=== PATIENT | female | born 1995 | race Caucasian/White ===

== ENCOUNTER 2017-10-20 22:45 | Emergency (ER) | payer MEDICAID, SELFPAY ==
[2017-10-20 22:46] VITALS: BP 120/65; PULSE 70; RESP 18; TEMP 36.9; O2SAT 99; BMI 18.8
--- NOTE | 2017-10-20 23:08 | ED.DCSUM_ITS ---
- ER Visit Summary Date of Service: 10/20/17 Chief Complaint: Laceration History of Present Illness: The patient is a 22 F who is a cutter, however she denies suicidal ideations, she is with her boyfriend who agrees to this. She was trying to escape a problem and cut her right thigh a little to deep tonight. No other injury Physical Examination: 2 cm right thigh laceration linear. It is gaping. Emergency Department Course and Treatment: Wound was sutured, 3 of the 4-0 nylon sutures were placed. Tetanus was updated patient will be discharged with education and I long talk with her about finding alternative means of expressing her anger. Is now calm collected lucid and again nonsuicidal Impression: Laceration right thigh 2 cm This note was generated with [employer] dictation software. It may contain incorrect words, spelling, and punctuation that were not noted in review of the chart prior to signing ED Disposition - Plan for ED Patient: Disposition: Home or Assisted Living Chief Complaint: Laceration Instructions: ED Laceration All Referrals: Care Physician,No Primary [Primary Care Provider] - 10 Day for suture removal
[2017-10-20] MEDS: Diphth,Pertuss(Acell),Tet Vac 0.5 ML Vial IM (23:18)
== END 2017-10-20 23:37 | disposition home or self-care (01) ==
LOC: ED 23:15
PROVIDERS: Emergency Provider Emergency Medicine
DX: S71.111A Laceration without foreign body, right thigh, initial encounter (principal); X78.9XXA Intentional self-harm by unspecified sharp object, initial encounter; Y93.9 Activity, unspecified; Y92.9 Unspecified place or not applicable
CPT/HCPCS: 12001; 90471; 90715; 99282

== ENCOUNTER 2017-11-02 18:15 | Emergency (ER) | payer MEDICAID, SELFPAY ==
[2017-11-02 18:16] VITALS: BP 125/69; PULSE 102; RESP 16; TEMP 36.9; O2SAT 99; BMI 18.2
--- NOTE | 2017-11-02 18:48 | ED.VISSUMM ---
- ER Visit Summary Date of Service: 11/02/17 Chief Complaint: Sore throat History of Present Illness: The patient is a 22 F sore throat today. Denied any nausea, vomiting or diarrhea. No significant cough. No significant fever. Physical Examination: Well-appearing young female. Vital signs are stable. Afebrile. Pulse ox 9 9% on room air. No distress. H EENT exam posterior pharynx both tonsils are slightly enlarged. They are not touching. Both have exudate. Both are red and swollen. No peritonsillar abscess. No drooling. No stridor. No trouble swallowing. Neck mild anterior chain lymphadenopathy. Trachea midline. No meningismus. Lungs clear to auscultation bilaterally. Heart regular rate and rhythm no murmur. Abdomen soft nontender. No giving or masses. No splenic tenderness no hepatomegaly. No axillary lymphadenopathy in either armpit. Moving all 4 extremities. Back nontender. Neurologic exam normal. No current signs of mononucleosis. Test Results: None Emergency Department Course and Treatment: Patient treated clinically as acute strep throat. Treatment Plan: 1 dose of amoxicillin here orally. Amoxicillin 3 times daily for 10 days at home. Warm salt water gargling. Plenty of fluids and rest. Return if worse. Disposition: Discharge Impression: Acute strep tonsillitis This note was generated with [employer] dictation software. It may contain incorrect words, spelling, and punctuation that were not noted in review of the chart prior to signing ED Disposition - Plan for ED Patient: Disposition: Home or Assisted Living Chief Complaint: Sore Throat Instructions: Strep Throat Prescriptions: Amoxicillin 500 mg PO TID #30 tab Referrals: Clint Bui MD [STAFF PHYSICIAN] - 3-5 Days if not improving Additional Instructions: Amoxicillin antibiotic 1 pill 3 times a day. Warm salt water gargling 5 times a day. Tylenol Motrin for pain. Plenty fluids and rest. She started feeling better in the next 24-72 hours. Return if feeling a lot worse or unable to swallow. Follow-up with the primary care physician as needed.
--- NOTE | 2017-11-02 18:51 | ED.DEP ---
ED Disposition - Plan for ED Patient: Disposition: Home or Assisted Living Chief Complaint: Sore Throat Instructions: Strep Throat Prescriptions: Amoxicillin 500 mg PO TID #30 tab Referrals: Clint Bui MD [STAFF PHYSICIAN] - 3-5 Days if not improving Additional Instructions: Amoxicillin antibiotic 1 pill 3 times a day. Warm salt water gargling 5 times a day. Tylenol Motrin for pain. Plenty fluids and rest. She started feeling better in the next 24-72 hours. Return if feeling a lot worse or unable to swallow. Follow-up with the primary care physician as needed.
[2017-11-02] MEDS: AMOXICILLIN 500 MG CAPSULE PO (18:56)
== END 2017-11-02 18:57 | disposition home or self-care (01) ==
PROVIDERS: Emergency Provider Emergency Medicine
DX: J03.00 Acute streptococcal tonsillitis, unspecified (principal)
CPT/HCPCS: 99283

== ENCOUNTER 2017-11-04 13:30 | Emergency (ER) | payer MEDICAID, SELFPAY ==
[2017-11-04 13:30] VITALS: BP 117/76; PULSE 75; RESP 18; TEMP 36.6; O2SAT 98; BMI 18.2
--- NOTE | 2017-11-04 13:47 | CT_ITS ---
STUDY: CT ABDOMEN AND PELVIS WITHOUT CONTRAST REASON FOR EXAM: Female, 22 years old. Left flank pain since 9:00 AM. Hematuria. RADIATION DOSAGE (If Supplied By Facility): CTDIvol = ( 4.06 ) mGy, DLP = ( 172.92 ) mGycm TECHNIQUE: Transaxial images were obtained from the dome of the diaphragm to the symphysis pubis without oral contrast, and without intravenous contrast. Sagittal and coronal images were reconstructed. Individualized dose optimization techniques were used for this CT. COMPARISON: None. FINDINGS: The visualized lung bases are unremarkable. The visualized portions of the heart are within normal limits. Normal liver. Normal gallbladder and extrahepatic biliary system. Normal spleen. Normal pancreas. Normal bilateral adrenal glands. Normal right kidney. Left kidney: Mild left hydronephrosis secondary to 4 mm partially obstructing calculus in the left proximal ureter (series 1002, image 57; series 602, image 40). No stones in the left kidney. Normal visualized stomach. Normal small intestine. Normal colon. The appendix is visualized and appears normal. Normal abdominal aorta. Normal inferior vena cava. Normal retroperitoneum. Normal urinary bladder. Normal anteverted uterus. Normal abdominal wall. Normal osseous structures. CT/Abdomen/Pelvis without Cont IMPRESSION: Mild left hydronephrosis secondary to a 4 mm partially obstructing calculus in the left proximal ureter. Electronically Signed: Yo Stein MD at 14:57 EDT , Service support ,
[2017-11-04] MEDS: 0.9% Normal Saline 1,000 ML 1000 ML IV (13:58)
[2017-11-04] MEDS: Morphine 4 MG/ML Syringe IV (13:59)
[2017-11-04] MEDS: Ondansetron 4 MG/2 ML Vial IV (13:59)
[2017-11-04] MEDS: Ketorolac 30 MG/ML Syringe IV (13:59)
[2017-11-04 14:09] LABS: Bacteria 0 SEEN /hpf (None Seen); Mucous, Urine 0 SEEN /hpf (<or=2+); White Blood Cells 0 SEEN /hpf (0-5)
[2017-11-04 14:13] LABS: Color, Urine Brown (Yellow); Glucose, Dipstick Normal (Normal); Ketone-Dipstick 5 mg/dl (Negative); Leukocyte Esterase-Dipstick 100 /ul (Negative); Nitrite-Dipstick Positive (Negative); Occult Blood-Urine 250 /ul (Negative); Protein-Dipstick 100 mg/dl (Negative); Specific Gravity, Urine 1.015 (1.002-1.030); Urine Clarity Cloudy (Clear); Urine Urobilinogen 1 mg/dl (Normal); Urine pH 6.5 (5.0 - 8.0)
[2017-11-04 14:13] LABS: Absolute Lymphocyte Count 1.66 X10^3/ul (0.83-4.51); Absolute Neutrophil Count 6.5 X10^3/uL (2.0-7.7); Basophil# 0.02 X10^3/uL; Basophil% 0.2 % (0-1); Eosinophil# 0.07 X10^3/uL; Eosinophils% 0.8 % (0-5); Hematocrit 36.2 % (37-47); Lymphocyte # 1.66 X10^3/ul (4.0); Mean Corp Hgb Conc 33.1 g/gl (32-36); Mean Corpuscular Hgb 30.5 pg (27.0-32.0); Mean Corpuscular Volume 91.9 fL (81-99); Mean Platelet Vol. 10.9 fl (6.2-12.0); Monocyte# 0.54 X10^3/uL; Monocyte% 6.2 % (0-10); Neutrophil # 6.46 X10^3/uL (2.7-7.7); Neutrophil % 73.8 % (47-70); Platelet Count 199 K/mm3 (150-450); RBC Distribution Width CV 13.1 % (11.6-14.6); RBC Distribution Width SD 44.3 fl (35.1-43.9); Red Blood Count 3.94 M/mm3 (4.2-5.4); White Blood Count 8.8 K/mm3 (4.4-11.0)
[2017-11-04 14:14] LABS: POSITIVE COUNT NO; POSITIVE DIFFERENTIAL NO; POSITIVE MORPHOLOGY NO
[2017-11-04 14:15] LABS: Internal QC Validated? YES +Cl - CLEAR BKGD; Pregnancy, Urine Negative Negative
[2017-11-04 14:17] LABS: Urine Bilirubin Dipstick 1 mg/dL (Negative)
[2017-11-04 14:19] LABS: Red Blood Cells-Urine > 100 SEEN /hpf (0-5); Squamous Epithelial Cells - UA 5-10 SEEN /hpf (5-10)
[2017-11-04 14:25] LABS: Anion Gap 6 (5-15); BUN 9 mg/dL (7-18); BUN/Creat Ratio 13.7 RATIO (10-20); Calcium,Total 8.7 mg/dL (8.5-10.1); Chloride 110 mmol/L (98-107); Creatinine, Serum 0.66 mg/dL (0.55-1.02); EST Glomerular Filtration Rate 122 mL/min (>60); Est Glom Filt Rate - Afr Amer 147 mL/min (>60); Estimated Creatinine Clearance 100.28 ml/min; Glucose 92 mg/dL (74-106); Potassium 3.8 mmol/L (3.5-5.1); Sodium Level 142 mmol/L (136-145)
--- NOTE | 2017-11-04 15:57 | ED.VISSUMM ---
- ER Visit Summary Date of Service: 11/04/17 Chief Complaint: Right flank pain History of Present Illness: The patient is a 22 F with right flank pain that started just prior to arrival. She has some dysuria and hematuria. No fever or chills no prior kidney stone history. No vaginal bleeding. Physical Examination: She appears in some distress, she has CVA tenderness to palpation and right lower quadrant abdominal pain, not at McBurney's. Emergency Department Course and Treatment: [Patient is found to have a 4 mm stone with very mild hydronephrosis, white counts unremarkable but she does have a urinary tract infection I talked to urology and patient will be discharged. Antibiotics given. Impression: Kidney stone Urinary tract infection This note was generated with [employer] dictation software. It may contain incorrect words, spelling, and punctuation that were not noted in review of the chart prior to signing ED Disposition - Plan for ED Patient: Disposition: Home or Assisted Living Chief Complaint: Flank Pain Instructions: ED Kidney Infec Female, ED Stone Renal W Colic Prescriptions: Smz/Tmp Ds [Bactrim Ds] 1 tab PO BID #20 tab Referrals: Bee Pineda MD [STAFF PHYSICIAN] - 2 Days
[2017-11-04 16:03] VITALS: RESP 18; O2SAT 99
[2017-11-04] MEDS: Ceftriaxone 1 GM/50 mL Premix x1 IV (16:05)
--- NOTE | 2017-11-04 16:13 | ED.VISSUMM ---
- ER Visit Summary Date of Service: 11/04/17 Chief Complaint: [] History of Present Illness: The patient is a 22 F [] Physical Examination: [] Test Results: [] Emergency Department Course and Treatment: [] Treatment Plan: [] Disposition: [] Impression: [] This note was generated with [employer] dictation software. It may contain incorrect words, spelling, and punctuation that were not noted in review of the chart prior to signing ED Disposition - Plan for ED Patient: Disposition: Home or Assisted Living Chief Complaint: Flank Pain Instructions: ED Kidney Infec Female, ED Stone Renal W Colic Prescriptions: Hydrocodone Bitart/Apap 5-325 [Oliver 5/325] 1 - 2 tab PO Q4H PRN PRN 5 Days #20 tab PRN Reason: Pain Smz/Tmp Ds [Bactrim Ds] 1 tab PO BID #20 tab Referrals: Bee Pineda MD [STAFF PHYSICIAN] - 2 Days
--- NOTE | 2017-11-04 16:16 | ED.DCSUM_ITS ---
- ER Visit Summary Date of Service: 11/04/17 Chief Complaint: [] History of Present Illness: The patient is a 22 F [] Physical Examination: [] Test Results: [] Emergency Department Course and Treatment: [] Treatment Plan: [] Disposition: [] Impression: [] This note was generated with [employer] dictation software. It may contain incorrect words, spelling, and punctuation that were not noted in review of the chart prior to signing ED Disposition - Plan for ED Patient: Disposition: Home or Assisted Living Chief Complaint: Flank Pain Instructions: ED Kidney Infec Female, ED Stone Renal W Colic Prescriptions: Hydrocodone Bitart/Apap 5-325 [Carl[place] 5/325] 1 - 2 tab PO Q4H PRN PRN 5 Days #20 tab PRN Reason: Pain Smz/Tmp Ds [Bactrim Ds] 1 tab PO BID #20 tab Referrals: Bee Pineda MD [STAFF PHYSICIAN] - 2 Days
[2017-11-04 16:32] VITALS: BP 124/69; PULSE 58; RESP 18; O2SAT 99
== END 2017-11-04 16:58 | disposition home or self-care (01) ==
PROVIDERS: Emergency Provider Emergency Medicine
DX: N13.2 Hydronephrosis with renal and ureteral calculous obstruction (principal); N39.0 Urinary tract infection, site not specified; Z72.0 Tobacco use
CPT/HCPCS: 74176; 80048; 81001; 81025; 85025; 96361; 96365; 96374; 96375; 99283; J7030; J2405

== ENCOUNTER → 2018-03-15 17:39 | Outpatient (CLI) | payer MEDICAID, SELFPAY ==
[2018-03-15 19:36] LABS: Color, Urine Yellow (Yellow); Glucose, Dipstick Normal (Normal); Ketone-Dipstick Negative (Negative); Leukocyte Esterase-Dipstick 25 /ul (Negative); Nitrite-Dipstick Positive (Negative); Occult Blood-Urine 25 /ul (Negative); Protein-Dipstick Negative (Negative); Specific Gravity, Urine 1.015 (1.002-1.030); Urine Bilirubin Dipstick Negative (Negative); Urine Clarity Cloudy (Clear); Urine Urobilinogen Normal (Normal)
[2018-03-15 20:19] LABS: Chlamydia Trachomatis by PCR Negative (Negative); Neisserai gonorrhoeae by PCR Negative (Negative); Probe Check PASS; Sample Adequacy Control PASS; Specimen Processing Control PASS
--- OUTSIDE RECORDS SUMMARY | 2018-05-01 22:29 | XMS RPT_ITS ---
:1995 Author Organization OHIP Care Team Providers Name Role Phone Dr. Michael Velasco Admitting Unavailable Dr. Michael Velasco Attending Unavailable Rigoberto Castillo Attending Unavailable Primay Care Physicia, No Primary Care Unavailable Rigoberto Castillo Attending Unavailable Primay Care Physicia, No Primary Care Unavailable Primay Care Physicia, No Primary Care Unavailable Mando Bingham Attending Unavailable Primay Care Physicia, No Primary Care Unavailable Misael Jones Attending Unavailable Primay Care Physicia, No Primary Care Unavailable Mando Bingham Attending Unavailable PROBLEMS PROBLEMS DATE TYPE CONDITION / CODE ATTENDING STATUS SOURCE 04/05/2018 Unknown Z34.81 - Encounter Rigoberto Castillo Active [facility] for supervision of Community other normal Hospital , first Repository trimester / Z34.81(ICD-10) 03/16/2018 Unknown Z11.3 - Encounter Rigoberto Castillo Active [facility] for screening for Community infections with a Hospital predominantly Repository sexual mode of transmission / Z11.3(ICD-10) 03/16/2018 Unknown Z32.01 - Encounter Rigoberto Castillo Active [facility] for test, Community result positive / Hospital Z32.01(ICD-10) Repository 03/16/2018 Unknown R30.0 - Dysuria / Rigoberto Castillo Active [facility] R30.0(ICD-10) [facility] Hospital Repository 11/04/2017 Unknown N20.0 - Calculus of CorniciMando Active [facility] kidney / Community N20.0(ICD-10) Hospital Repository PROCEDURES PROCEDURES No Procedure Records FoundRESULTS RESULTS URINE DRUG SCREEN Collected: 04/05/2018 Status: F Source: [place] (VISTA) 4:04 PM [facility] REPOS[facility] Order Comment: Comments: UNK IMMUNITY List of Drugs Taken or Suspected? UNK TYPE CODE TESTS RESULT OUT OF RANGE REFERENCE UNITS LAB L505.0075 TO BE Normal CONFIRMED Result Comment: CONFIRMATORY TESTING FOR ALL POSITIVE URINE DRUG SCREEN RESULTS WILL ONLY BE SENT OUT UPON PHYSICIAN ORDER. VISTA Urine Drug Screen methods provide only preliminary analytical test results. A more specific alternate chemical method must be used in order to obtain a confirmed analytical result. Gas chromatography/mass spectrometery (GC/MS) is the preferred confirmatory method. Clinical consideration and professional judgement should be applied to any drug of abuse test result, particularly when preliminary positive results are used. URINE TCA TESTING MUST BE ORDERED SEPARATELY. USE TEST MNEMONIC: [facility] LAB L505.5005 VISTA UDS PH 7 Normal LAB L505.5015 <1000 ng/mL AMPHETAMINES Normal NEGATIVE LAB L505.5025 < 200 ng/mL BARBITIURATES Normal NEGATIVE LAB L505.5035 < 200 ng/mL BENZODIAZIPINE Normal NEGATIVE LAB L505.5045 < 300 ng/mL COCAINE Normal NEGATIVE LAB L505.5055 < 500 ng/mL ECSTACY Normal NEGATIVE LAB L505.5065 < 300 ng/mL METHADONE Normal NEGATIVE LAB L505.5075 < 300 ng/mL OPIATES Normal NEGATIVE LAB L505.5085 < 25 ng/mL PCP Normal NEGATIVE LAB L505.5095 < 50 ng/mL THC Normal NEGATIVE Performed By: #### L505.5000, L505.6240 #### [facility] [address] [place], [place], [address] NICOTINE URINE DRUG Collected: 04/05/2018 Status: F Source: [place] SCREEN 4:04 PM [facility]POS[facility] Order Comment: Comments: UNK IMMUNITY List of Drugs Taken or Suspected? UNK TYPE CODE TESTS RESULT OUT OF RANGE REFERENCE UNITS LAB L505.6250 TO BE Normal CONFIRMED Result Comment: CONFIRMATORY TESTING FOR ALL POSITIVE URINE DRUG SCREEN RESULTS WILL ONLY BE SENT OUT UPON PHYSICIAN ORDER. The results of Urine Drug Screen methods provide only preliminary analytical test results. A more specific alternate chemical method must be used in order to obtain a confirmed analytical result. Gas chromatography/mass spectrometery (GC/MS) is the preferred confirmatory method. Clinical consideration and professional judgement should be applied to any drug of abuse test result, particularly when preliminary positive results are used. LAB L505.6270 <200 ng/mL High COT DRG Positive SCREEN Result Comment: Cotinine is the first-stage metabolite of Nicotine. Performed By: #### L505.5000, L505.6240 #### [facility] [address] [place], [address] CBC W/DIFF, AUTOMATED Collected: 04/05/2018 Status: F Source: [place] 4:04 PM [facility]POS[facility] TYPE CODE TESTS RESULT OUT OF RANGE REFERENCE UNITS LAB L100.1000 4.4-11.0 K/mm3 Normal WBC 9.4 LAB L100.1200 4.2-5.4 M/mm3 Low RBC 4.01 LAB L100.1300 12.0-15.0 g/dl Normal HGB 12.0 LAB L100.1400 37-47 % Low HCT 35.6 LAB L100.1500 81-99 fL Normal MCV 88.8 LAB L100.1600 27.0-32.0 pg Normal MCH 29.9 LAB L100.1700 32-36 g/gl Normal MCHC 33.7 LAB L100.1810 11.6-14.6 % Normal RDW CV 13.0 LAB L100.1820 35.1-43.9 fl Normal RDW SD 42.3 LAB L100.1900 150-450 K/mm3 Normal PLT 240 LAB L100.2000 6.2-12.0 fl Normal MPV 10.9 LAB L100.2100 47-70 % Normal NEUT% 69.9 LAB L100.2200 19-41 % Normal LY% 21.1 LAB L100.2300 0-10 % Normal MONO% 7.3 LAB L100.2400 0-5 % Normal EO% 1.3 LAB L100.2500 0-1 % Normal BASO% 0.2 LAB L100.2550 0.0-0.9 % Normal IM GRAN % 0.200 Result Comment: IG% - Immature Granulocytes (promyelocytes, myelocytes and metamyelocytes) > 1% indicates that a LEFT SHIFT is Present. LAB L100.2620 2.0-7.7 X10 3/uL Normal Absolute Neut 6.6 LAB L100.2720 0.83-4.51 X10 3/ul Normal Absolute Lymph 1.98 Performed By: #### L100.0100 #### [facility] [address] [facility] [place], [place], [address] T AND S-NO Collected: 04/05/2018 Status: F Source: [place] CHARGE W/PNP 4:04 PM [facility]POS[facility] Order Comment: Reason for Type AND Screen/Red Cells: Surgery? N TYPE CODE TESTS RESULT OUT OF RANGE REFERENCE UNITS LAB B10.0800 A Normal BLOOD POSITIVE TYPE GEL LAB B100.4050 Normal Ab SCREEN NEGATIVE GEL Performed By: #### B100.7550 #### [facility] [address] [facility]. [place], [place], [address] THYROID STIM HORMONE Collected: 04/05/2018 Status: F Source: [place] (TSH) 4:04 PM [facility] REPOS[facility] Order Comment: PLEASE ADD T3F AND T4F TO LABS DRAWN YESTERDAY LOCATION: 0102:C303 WY3-4-G Has Patient had X-rays with Contrast this admission? N Comments: UNK IMMUNITY TYPE CODE TESTS RESULT OUT OF RANGE REFERENCE UNITS LAB L501.9520 0.358-3.74 uIU/mL Low TSH 0.03 Performed By: #### L501.9520, L501.65300, L506.0400 #### [facility] [address], [address] FREE T3 Collected: 04/05/2018 Status: F Source: [place] 4:04 PM [facility] REPOS[facility] Order Comment: PLEASE ADD T3F AND T4F TO LABS DRAWN YESTERDAY LOCATION: 0102:C303 CT3-4-G Has Patient had X-rays with Contrast this admission? N Comments: UNK IMMUNITY TYPE CODE TESTS RESULT OUT OF RANGE REFERENCE UNITS LAB L501.68647 2.18-3.98 pg/mL Normal FREE T3 3.8 Performed By: #### L501.9520, L501.13454, L506.0400 #### [facility] [address] [place], [address] T4 FREE DIRECT Collected: 04/05/2018 Status: F Source: [place] 4:04 PM [facility] Order Comment: PLEASE ADD T3F AND T4F TO LABS DRAWN YESTERDAY LOCATION: 0102:C3 [facility] Has Patient had X-rays with Contrast this admission? N Comments: UNK IMMUNITY TYPE CODE TESTS RESULT OUT OF RANGE REFERENCE UNITS LAB L506.0400 0.76-1.46 ng/dL Normal T4 FREE 1.30 DIRECT Performed By: #### L501.9520, L501.91879, L506.0400 #### [facility] [address] [place], [place], [address] URINALYSIS, ROUTINE Collected: 04/05/2018 Status: F Source: [place] (DIPSTICK) 4:04 PM [facility]POS[facility] Order Comment: Comments: UNK IMMUNITY How was Urine Obtained? Urine, Random TYPE CODE TESTS RESULT OUT OF RANGE REFERENCE UNITS LAB L400.3000 Yellow COLOR Normal Yellow LAB L400.3050 Clear Normal CLARITY Cloudy LAB L400.3200 Normal mg/dl Normal GLUCOSE, UR Normal LAB L400.3300 Negative mg/dL Normal BILIRUBIN URINE Negative LAB L400.3400 Negative mg/dl Normal KETONE UR Negative LAB L400.3465 1.002-1.030 Normal SP.GR. DIPSTX 1.015 LAB L400.3550 5.0 - 8.0 pH UR Normal 7.0 LAB L400.3600 Negative mg/dl PROT Normal DIPSTX Negative LAB L400.3700 Normal mg/dl High 1 UROBILI LAB L400.3750 Negative Normal NITRITE UR Negative LAB L400.3780 Negative /ul High 10 OCCULT BLOOD-UR LAB L400.3800 Negative /ul High LEUK 25 ESTERASE Performed By: #### L400.2010 #### [facility] [address] [place], [address] RUBELLA IGG Collected: 04/05/2018 Status: F Source: [place] 4:04 PM [facility] Order Comment: Comments: UNK IMMUNITY TYPE CODE TESTS RESULT OUT OF RANGE REFERENCE UNITS LAB L509.4000 IU/mL Normal Rubella IgG 45.1 Result Comment: Antibody results Interpretation of Immune Status < 5 IU/ml Presumed Non-immune 5 - < 10 IU/ml Equivocal > or = 10 IU/ml Presumed Immune Performed By: #### L509.4000, L3890.6005 #### [facility] [address] [place], [address] HIV - [facility] Collected: 04/05/2018 Status: F Source: [place] 4:04 [facility] REPOS[facility] Order Comment: Comments: UNK IMMUNITY TYPE CODE TESTS RESULT OUT OF RANGE REFERENCE UNITS LAB L3890.6005 Nonreactive Normal HIV - [facility] Non-Reactive Performed By: #### L509.4000, L3890.6005 #### [facility] [address] [place], [address] RPR Collected: 04/05/2018 Status: F Source: [place] 4:04 [facility] REPOS[facility] TYPE CODE TESTS RESULT OUT OF REFERENCE UNITS RANGE LAB L700.5100 NONREACTIVE Normal RPR NONREACTIVE Performed By: #### L700.5100 #### [facility] [address] [place], [address] Observed: 04/05/2018 Status: F Source: [place] CULTURE, URINE 4:04 PM [facility] Urine Culture Below infection level. ORGANISM 1: Mixed Gram Positive Organisms [place] Count 1000-10,000 Performed By: #### M100.0650 #### [facility] [address] [place], [address] HEPATITIS B SURFACE Collected: 04/05/2018 Status: F Source: [place] AG 4:04 PM [facility] Order Comment: Comments: UNK IMMUNITY TYPE CODE TESTS RESULT OUT OF RANGE REFERENCE UNITS LAB L3100.0400 Negative Normal HB Negative SURF AG Result Comment: Performed at: - [facility] [id number] Clinical Informatics Spec: Gigi Tapia PhD, Phone: [phone] Performed By: #### L3100.0390, L3100.0625, L3400.0000 #### [facility] (refer to report for specific site) refer to report for address and phone number HEPATITIS C ANTIBODIES Collected: 04/05/2018 Status: F Source: [place] 4:04 PM [facility] Order Comment: Comments: UNK IMMUNITY TYPE CODE TESTS RESULT OUT OF RANGE REFERENCE UNITS LAB L3100.0650 0.0-0.9 s/co ratio Normal HEP C AB <0.1 Result Comment: Negative: < 0.8 Indeterminate: 0.8 - 0.9 Positive: > 0.9 The CDC recommends that a positive HCV antibody result be followed up with a HCV Nucleic Acid Amplification test (969229). Performed By: #### L3100.0390, L3100.0625, L3400.0000 #### [facility] (refer to report for specific site) refer to report for address and phone number V-ZOSTER IGG Collected: 04/05/2018 Status: F Source: [place]ICKIE (IMMUNITY) 4:04 PM [facility] Order Comment: Comments: UNK IMMUNITY TYPE CODE TESTS RESULT OUT OF RANGE REFERENCE UNITS LAB L3400.0000 Immune >165 index Normal VZOST IgG [id number] Result Comment: Negative <135 Equivocal 135 - 165 Positive >165 A positive result generally indicates exposure to the pathogen or administration of specific immunoglobulins, but it is not indication of active infection or stage of disease. Performed By: #### L3100.0390, L3100.0625, L3400.0000 #### [facility] (refer to report for specific site) refer to report for address and phone number URINALYSIS, ROUTINE Collected: 03/15/2018 Status: F Source: [place]ICKIE (DIPSTICK) 4:00 PM [facility] Order Comment: How was Urine Obtained? CLEAN CATCH TYPE CODE TESTS RESULT OUT OF RANGE REFERENCE UNITS LAB L400.3000 Yellow COLOR Normal Yellow LAB L400.3050 Clear Normal CLARITY Cloudy LAB L400.3200 Normal mg/dl Normal GLUCOSE, UR Normal LAB L400.3300 Negative mg/dL Normal BILIRUBIN URINE Negative LAB L400.3400 Negative mg/dl Normal KETONE UR Negative LAB L400.3465 1.002-1.030 Normal SP.GR. DIPSTX 1.015 LAB L400.3550 5.0 - 8.0 pH UR Normal 7.0 LAB L400.3600 Negative mg/dl PROT Normal DIPSTX Negative LAB L400.3700 Normal mg/dl Normal UROBILI Normal LAB L400.3750 Negative High NITRITE UR Positive LAB L400.3780 Negative /ul High 25 OCCULT BLOOD-UR LAB L400.3800 Negative /ul High LEUK 25 ESTERASE Performed By: #### L400.2010 #### [facility] [address] [place], [place], [address] CT/NG [facility] BY PCR Collected: 03/15/2018 Status: F Source: [place] 4:00 PM [facility] TYPE CODE TESTS RESULT OUT OF RANGE REFERENCE UNITS LAB L8200.2100 Negative Normal Chlam Negative Trac PCR LAB L8200.2200 Negative Normal NG by Negative PCR Performed By: #### L8200.1999 #### [facility] [address] [place], [address] Observed: 03/15/2018 Status: F Source: [place] CULTURE, URINE 4:00 PM [facility] Urine Culture ORGANISM 1: Presumptive E. coli [place] Count >100,000 Presumptive E. coli: REACTION Amoxacillin/Clavulanic Acid $ 8 S Ampicillin $ >=32 R Ampicillin/Sulbactam $ 16 I Cefazolin $ <=4 S Cefepime $ <=1 S Ceftriaxone $ <=1 S Ciprofloxacin $ <=0.25 S ESBL - Ertapenim $$$ <=0.5 S Gentamicin $ <=1 S Imipenem *NF <=0.25 S Levofloxacin $ 1 S Nitrofurantoin $ <=16 S Piperacillin/Tazobactam $$ <=4 S Tobramycin $ <=1 S Trimethoprim/Sulfametho $ <=20 S (NF) indicates non-formulary drug at [facility]. Approval by Infectious Disease Specialist required before non-formulary drugs may be ordered and/or dispensed. Performed By: #### M100.0650 #### [facility] [address] [place], [address] EMERGENCY DEPARTMENT Observed: 11/04/2017 Status: F Source: [place] SUMMARY 4:16 PM [facility] Medical Records Department [address] [place] [address] Emergency Department Summary 11/04/17 1613 MR#: [id number] Acct: [id number] Name: ROSSY RAMOS Rep #: [id number] : 1995 22 From: Mando Bingham MD PCP: Care Physician, No Primary Status: REG ER - ER Visit Summary Date of Service: 11/04/17 Chief Complaint: [] History of Present Illness: The patient is a 22 F [] Physical Examination: [] Test Results: [] Emergency Department Course and Treatment: [] Treatment Plan: [] Disposition: [] Impression: [] This note was generated with [employer] dictation software. It may contain incorrect words, spelling, and punctuation that were not noted in review of the chart prior to signing ED Disposition - Plan for ED Patient: Disposition: Home or Assisted Living Chief Complaint: Flank Pain Instructions: ED Kidney Infec Female, ED Stone Renal W Colic Prescriptions: Hydrocodone Bitart/Apap 5-325 [[place] 5/325] 1 - 2 tab PO Q4H PRN PRN 5 Days #20 tab PRN Reason: Pain Smz/Tmp Ds [Bactrim Ds] 1 tab PO BID #20 tab Referrals: Bee Pineda MD [STAFF PHYSICIAN] - 2 Days What to do if you have Problems For any increased pain, shortness of breath, bleeding, nausea or vomiting, chest pain, or any unexpected problems, contact your Primary Care Provider. Call [facility] ([phone]) or report to the closest Emergency Room. Call 911 if necessary. 11/04/17 1616 <Electronically signed by Mando Bingham MD> Date Mando Bingham MD Cosigner Signature (If Indicated): Date CC: No Primary Care Physician EMERGENCY DEPARTMENT Observed: 11/04/2017 Status: F Source: [place] SUMMARY 4:10 PM [facility] Medical Records Department [address] [place] [address] Emergency Department Summary 11/04/17 1557 MR#: [id number] Acct: [id number] Name: ROSSY RAMOS Rep #: [id number] : 1995 22 From: Mando Bingham MD PCP: Care Physician, No Primary Status: REG ER - ER Visit Summary Date of Service: 11/04/17 Chief Complaint: Right flank pain History of Present Illness: The patient is a 22 F with right flank pain that started just prior to arrival. She has some dysuria and hematuria. No fever or chills no prior kidney stone history. No vaginal bleeding. Physical Examination: She appears in some distress, she has CVA tenderness to palpation and right lower quadrant abdominal pain, not at McBurney's. Emergency Department Course and Treatment: [Patient is found to have a 4 mm stone with very mild hydronephrosis, white counts unremarkable but she does have a urinary tract infection I talked to urology and patient will be discharged. Antibiotics given. Impression: Kidney stone Urinary tract infection This note was generated with [employer] dictation software. It may contain incorrect words, spelling, and punctuation that were not noted in review of the chart prior to signing ED Disposition - Plan for ED Patient: Disposition: Home or Assisted Living Chief Complaint: Flank Pain Instructions: ED Kidney Infec Female, ED Stone Renal W Colic Prescriptions: Smz/Tmp Ds [Bactrim Ds] 1 tab PO BID #20 tab Referrals: Bee Pineda MD [STAFF PHYSICIAN] - 2 Days What to do if you have Problems For any increased pain, shortness of breath, bleeding, nausea or vomiting, chest pain, or any unexpected problems, contact your Primary Care Provider. Call [facility] ([phone]) or report to the closest Emergency Room. Call 911 if necessary. 11/04/17 1610 <Electronically signed by Mando Bingham MD> Date Mando Bingham MD Cosigner Signature (If Indicated): Date CC: No Primary Care Physician CBC W/DIFF, AUTOMATED Collected: 11/04/2017 Status: F Source: [place] 1:55 PM [facility] TYPE CODE TESTS RESULT OUT OF RANGE REFERENCE UNITS LAB L100.1000 4.4-11.0 K/mm3 Normal WBC 8.8 LAB L100.1200 4.2-5.4 M/mm3 Low RBC 3.94 LAB L100.1300 12.0-15.0 g/dl Normal HGB 12.0 LAB L100.1400 37-47 % Low HCT 36.2 LAB L100.1500 81-99 fL Normal MCV 91.9 LAB L100.1600 27.0-32.0 pg Normal MCH 30.5 LAB L100.1700 32-36 g/gl Normal MCHC 33.1 LAB L100.1810 11.6-14.6 % Normal RDW CV 13.1 LAB L100.1820 35.1-43.9 fl High RDW SD 44.3 LAB L100.1900 150-450 K/mm3 Normal PLT 199 LAB L100.2000 6.2-12.0 fl Normal MPV 10.9 LAB L100.2100 47-70 % High NEUT% 73.8 LAB L100.2200 19-41 % Normal LY% 19.0 LAB L100.2300 0-10 % Normal MONO% 6.2 LAB L100.2400 0-5 % Normal EO% 0.8 LAB L100.2500 0-1 % Normal BASO% 0.2 LAB L100.2550 0.0-0.9 % Normal IM GRAN % 0.000 Result Comment: IG% - Immature Granulocytes (promyelocytes, myelocytes and metamyelocytes) > 1% indicates that a LEFT SHIFT is Present. LAB L100.2620 2.0-7.7 X10 3/uL Normal Absolute Neut 6.5 LAB L100.2720 0.83-4.51 X10 3/ul Normal Absolute Lymph 1.66 Performed By: #### L100.0100 #### [facility] [address] [place], [place], [id number] BASIC METABOLIC Collected: 11/04/2017 Status: F Source: [place] PROFILE ([facility]) 1:55 PM [facility] TYPE CODE TESTS RESULT OUT OF RANGE REFERENCE UNITS LAB L501.0100 74-106 mg/dL Normal GLU 92 Result Comment: Please note revised GLUCOSE reference range effective 2017. LAB L501.1000 7-18 mg/dL Normal BUN 9 LAB L501.1100 0.55-1.02 mg/dL Normal CREAT,SERUM 0.66 Result Comment: The validity of the calculated GFR AND GFRAA in patients over 70 years has not been determined. Clinical correlation is essential. LAB L501.1110 >60 mL/min Normal EST GFR 122 Result Comment: Non- GFR Calc LAB L501.1115 >60 mL/min Normal EST GFR - AA 147 Result Comment: GFR Calc LAB L501.1255 ml/min Normal Estimated CRCL 100.28 LAB L501.1300 10-20 RATIO BUN/CRE Normal 13.7 LAB L501.2200 8.5-10 mg/dL .1 CA Normal 8.7 LAB L501.5300 136-14 mmol/L 5 NA Normal 142 LAB L501.5600 3.5-5. mmol/L 1 K Normal 3.8 LAB L501.5900 98-107 mmol/L High CL 110 LAB L501.6100 21.0-3 mmol/L 2.0 CO2 Normal 26.0 LAB L501.6200 5-15 GAP Normal 6 Performed By: #### L500.2500 #### [facility] [address] [place], [address] ABDOMEN/PELVIS WITHOUT Observed: 11/04/2017 Status: F Source: [place] CONT 1:48 PM [facility] Imaging [place] [address] Abdomen/Pelvis without Cont MR#: [id number] Acct: [id number] Name: ROSSY RAMOS Rep #: [id number] : 1995 F 22 From: Yo Stein MD PCP: Care Physician, No Primary Status: REG ER Study: Abdomen/Pelvis without Cont Date of Exam: 11/04/17 Exam# [id number] Ordering Dr: Mando Bingham MD STUDY: CT ABDOMEN AND PELVIS WITHOUT CONTRAST REASON FOR EXAM: Female, 22 years old. Left flank pain since 9:00 AM. Hematuria. RADIATION DOSAGE (If Supplied By Facility): CTDIvol = ( 4.06 ) mGy, DLP = ( 172.92 ) mGycm TECHNIQUE: Transaxial images were obtained from the dome of the diaphragm to the symphysis pubis without oral contrast, and without intravenous contrast. Sagittal and coronal images were reconstructed. Individualized dose optimization techniques were used for this CT. COMPARISON: None. FINDINGS: The visualized lung bases are unremarkable. The visualized portions of the heart are within normal limits. Normal liver. Normal gallbladder and extrahepatic biliary system. Normal spleen. Normal pancreas. Normal bilateral adrenal glands. Normal right kidney. Left kidney: Mild left hydronephrosis secondary to 4 mm partially obstructing calculus in the left proximal ureter (series 1002, image 57; series 602, image 40). No stones in the left kidney. Normal visualized stomach. Normal small intestine. Normal colon. The appendix is visualized and appears normal. Normal abdominal aorta. Normal inferior vena cava. Normal retroperitoneum. Normal urinary bladder. Normal anteverted uterus. Normal abdominal wall. Normal osseous structures. CT/Abdomen/Pelvis without Cont IMPRESSION: Mild left hydronephrosis secondary to a 4 mm partially obstructing calculus in the left proximal ureter. Electronically Signed: Yo Stein MD at 14:57 EDT , Service support , CC: No Primary Care Physician; Mando Bingham MD Vp Revenue Cycle: Signed ,URINE Collected: 11/04/2017 Status: F Source: [place] 1:40 PM [facility] Order Comment: Order Date: 11/04/17 TYPE CODE TESTS RESULT OUT OF REFERENCE UNITS RANGE LAB L400.8000 Negative Normal HCGUQUAL Negative Result Comment: Very dilute urine specimens, as indicated by a low specific gravity, may not contain sales representative groceries levels of hCG. If is still suspected, a first morning urine specimen should be collected 48 hours later and tested. Performed By: #### L400.7600 #### [facility] [place], [address] URINALYSIS, COMPLETE Collected: 11/04/2017 Status: F Source: [place] 1:40 PM [facility] Order Comment: Order Date: 11/04/17 COLOR OF URINE MAY AFFECT DIPSTICK RESULTS. How was Urine Obtained? CLEAN CATCH TYPE CODE TESTS RESULT OUT OF RANGE REFERENCE UNITS LAB L400.3000 Yellow COLOR Normal Brown LAB L400.3050 Clear Normal CLARITY Cloudy LAB L400.3200 Normal mg/dl Normal GLUCOSE, UR Normal LAB L400.3300 Negative mg/dL High BILIRUBIN URINE 1 Result Comment: COLOR OF URINE MAY AFFECT DIPSTICK RESULTS. LAB L400.3400 Negative mg/dl High KETONE UR 5 LAB L400.3465 1.002-1.030 Normal SP.GR. DIPSTX 1.015 LAB L400.3550 5.0 - 8.0 pH Normal UR 6.5 LAB L400.3600 Negative mg/dl High PROT DIPSTX 100 LAB L400.3700 Normal mg/dl High UROBILI 1 LAB L400.3750 Negative High NITRITE UR Positive LAB L400.3780 Negative /ul High OCCULT 250 BLOOD-UR LAB L400.3800 Negative /ul High LEUK ESTERASE 100 LAB L400.4050 0-5 /hpf Normal WBC 0 SEEN LAB L400.4100 0-5 /hpf Normal RBC-UA > 100 SEEN LAB L400.4150 5-10 /hpf Normal SQUAM EPI 5-10 SEEN LAB L400.4300 None Seen /hpf Normal BACTERIA 0 SEEN LAB L400.4350 <or=2+ /hpf Normal MUCUS, URINE 0 SEEN Performed By: #### L400.0001 #### [facility] [address] [place], [address] EMERGENCY DEPARTMENT Observed: 11/02/2017 Status: F Source: [place] SUMMARY 11:34 PM [facility] REPOSITORY [facility] Medical Records Department [address] [place] [address] Emergency Department Summary 11/02/17 1848 MR#: [id number] Acct: [id number] Name: ROSSY RAMOS Rep #: [id number] : 1995 22 From: Misael Jones MD PCP: Care Physician, No Primary Status: DEP ER - ER Visit Summary Date of Service: 11/02/17 Chief Complaint: Sore throat History of Present Illness: The patient is a 22 F sore throat today. Denied any nausea, vomiting or diarrhea. No significant cough. No significant fever. Physical Examination: Well-appearing young female. Vital signs are stable. Afebrile. Pulse ox 9 9% on room air. No distress. H EENT exam posterior pharynx both tonsils are slightly enlarged. They are not touching. Both have exudate. Both are red and swollen. No peritonsillar abscess. No drooling. No stridor. No trouble swallowing. Neck mild anterior chain lymphadenopathy. Trachea midline. No meningismus. Lungs clear to auscultation bilaterally. Heart regular rate and rhythm no murmur. Abdomen soft nontender. No giving or masses. No splenic tenderness no hepatomegaly. No axillary lymphadenopathy in either armpit. Moving all 4 extremities. Back nontender. Neurologic exam normal. No current signs of mononucleosis. Test Results: None Emergency Department Course and Treatment: Patient treated clinically as acute strep throat. Treatment Plan: 1 dose of amoxicillin here orally. Amoxicillin 3 times daily for 10 days at home. Warm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
== END ==
PROVIDERS: Visit Provider Obstetrics & Gynecology
DX: Z32.01 Encounter for pregnancy test, result positive (principal); Z11.3 Encounter for screening for infections with a predominantly sexual mode of transmission; R30.0 Dysuria
CPT/HCPCS: 81002; 87086; 87088; 87186; 87491; 87591

== ENCOUNTER → 2018-04-05 16:01 | Outpatient (CLI) | payer MEDICAID, SELFPAY ==
[2018-04-05 17:26] LABS: Absolute Lymphocyte Count 1.98 X10^3/ul (0.83-4.51); Absolute Neutrophil Count 6.6 X10^3/uL (2.0-7.7); Basophil# 0.02 X10^3/uL; Basophil% 0.2 % (0-1); Eosinophil# 0.12 X10^3/uL; Eosinophils% 1.3 % (0-5); Hematocrit 35.6 % (37-47); Lymphocyte # 1.98 X10^3/ul (4.0); Lymphocyte % 21.1 % (19-41); Mean Corp Hgb Conc 33.7 g/gl (32-36); Mean Corpuscular Hgb 29.9 pg (27.0-32.0); Mean Corpuscular Volume 88.8 fL (81-99); Mean Platelet Vol. 10.9 fl (6.2-12.0); Monocyte# 0.68 X10^3/uL; Monocyte% 7.3 % (0-10); Neutrophil # 6.55 X10^3/uL (2.7-7.7); Neutrophil % 69.9 % (47-70); Platelet Count 240 K/mm3 (150-450); RBC Distribution Width SD 42.3 fl (35.1-43.9); Red Blood Count 4.01 M/mm3 (4.2-5.4); White Blood Count 9.4 K/mm3 (4.4-11.0)
[2018-04-05 17:28] LABS: POSITIVE COUNT NO; POSITIVE DIFFERENTIAL NO; POSITIVE MORPHOLOGY NO
[2018-04-05 18:51] LABS: Amphetamine Urine VISTA NEGATIVE (<1000 ng/mL); Barbiturate Urine VISTA NEGATIVE (< 200 ng/mL); Benzodiazepine Urine VISTA NEGATIVE (< 200 ng/mL); Cocaine Urine VISTA NEGATIVE (< 300 ng/mL); Ecstacy Urine VISTA NEGATIVE (< 500 ng/mL); Methadone Urine VISTA NEGATIVE (< 300 ng/mL); PCP Urine VISTA NEGATIVE (< 25 ng/mL); THC Urine VISTA NEGATIVE (< 50 ng/mL); Vista UDS pH Range 7
[2018-04-05 18:52] LABS: Thyroid Stim Hormone (TSH) 0.03 uIU/mL (0.358-3.74)
[2018-04-05 19:07] LABS: Color, Urine Yellow (Yellow); Glucose, Dipstick Normal (Normal); Ketone-Dipstick Negative (Negative); Leukocyte Esterase-Dipstick 25 /ul (Negative); Nitrite-Dipstick Negative (Negative); Occult Blood-Urine 10 /ul (Negative); Protein-Dipstick Negative (Negative); Specific Gravity, Urine 1.015 (1.002-1.030); Urine Bilirubin Dipstick Negative (Negative); Urine Clarity Cloudy (Clear); Urine Urobilinogen 1 mg/dl (Normal)
[2018-04-05 19:34] LABS: HIV - WCH Non-Reactive (Nonreactive); Rubella IgG 45.1 IU/mL
[2018-04-05 20:41] LABS: COTININE Drug Screen Positive (<200 ng/mL)
[2018-04-06 09:05] LABS: Free T3 3.8 pg/mL (2.18-3.98)
[2018-04-07 01:41] LABS: Prenatal RPR NONREACTIVE (NONREACTIVE)
[2018-04-10 08:21] LABS: HEPATITIS B SURFACE AG Negative (Negative); Hep C Antibodies <0.1 s/co ratio (0.0-0.9); V-Zoster IgG (Immunity) 2293 index (Immune >165)
== END ==
PROVIDERS: Visit Provider Obstetrics & Gynecology
DX: Z34.81 Encounter for supervision of other normal pregnancy, first trimester (principal); R79.89 Other specified abnormal findings of blood chemistry
CPT/HCPCS: 36415; 80307; 81002; 84439; 84443; 84481; 85025; 86703; 86762; 86787; 86803; 87086; 87088; 87340

== ENCOUNTER → 2018-05-31 16:33 | Outpatient (CLI) | payer MEDICAID, SELFPAY ==
[2018-05-31 18:09] LABS: Free T3 2.6 pg/mL (2.18-3.98); T4 Free Direct 0.92 ng/dL (0.76-1.46); Thyroid Stim Hormone (TSH) 0.56 uIU/mL (0.358-3.74)
== END ==
PROVIDERS: Visit Provider Obstetrics & Gynecology
DX: O99.282 Endocrine, nutritional and metabolic diseases complicating pregnancy, second trimester (principal); E03.9 Hypothyroidism, unspecified; Z3A.00 Weeks of gestation of pregnancy not specified
CPT/HCPCS: 36415; 84439; 84443; 84481

== ENCOUNTER → 2018-08-16 | Outpatient (CLI) | payer MEDICAID, SELFPAY ==
[2018-08-16 17:22] LABS: Glucose Challenge Gest 1H 50g 130 mg/dL (70-140)
[2018-08-16 17:43] LABS: Hematocrit 30.7 % (37-47); Hemoglobin 10.1 g/dl (12.0-15.0); Mean Corp Hgb Conc 32.9 g/gl (32-36); Mean Corpuscular Volume 91.1 fL (81-99); Mean Platelet Vol. 11.6 fl (6.2-12.0); Platelet Count 264 K/mm3 (150-450); RBC Distribution Width CV 12.6 % (11.6-14.6); RBC Distribution Width SD 40.7 fl (35.1-43.9); Red Blood Count 3.37 M/mm3 (4.2-5.4); White Blood Count 12.3 K/mm3 (4.4-11.0)
[2018-08-16 17:45] LABS: Scan Indicated on CBC? Y/N NO
== END | disposition home or self-care (01) ==
LOC: WOBLAB 15:54
PROVIDERS: Visit Provider Obstetrics & Gynecology
DX: Z34.83 Encounter for supervision of other normal pregnancy, third trimester (principal)
CPT/HCPCS: 36415; 82950; 85027

== ENCOUNTER 2018-10-01 08:10 | Outpatient (CLI) | payer MEDICAID, SELFPAY ==
[2018-10-01 08:20] VITALS: BMI 24.4
[2018-10-01 08:33] LABS: Bacteria 0 SEEN /hpf (None Seen); Mucous, Urine 0 SEEN /hpf (<or=2+); Red Blood Cells-Urine 0 SEEN /hpf (0-5); Squamous Epithelial Cells - UA 0 SEEN /hpf (5-10); White Blood Cells 0 SEEN /hpf (0-5)
[2018-10-01 08:37] LABS: Color, Urine Yellow (Yellow); Glucose, Dipstick Normal (Normal); Ketone-Dipstick Negative (Negative); Leukocyte Esterase-Dipstick Negative /ul (Negative); Nitrite-Dipstick Negative (Negative); Occult Blood-Urine Negative /ul (Negative); Protein-Dipstick Negative (Negative); Urine Bilirubin Dipstick Negative (Negative); Urine Clarity Clear (Clear); Urine Urobilinogen Normal (Normal)
--- NOTE | 2018-10-01 09:15 | OB.TRI.NOTE ---
History of Present Illness Was patient seen by the physician?: Yes Reason For Visit: RULE OUT LABOR Date of Service: 10/01/18 Final ROSETTE: 11/08/18 Final ROSETTE Source: US <20 weeks Gestational age: 34 Weeks and 4 Days History of Present Illness: 34+ week intrauterine presents with some mid to low abdominal discomfort. Patient denies any vaginal leaking of fluid. Excellent movement noted. Patient did have a shower yesterday and was on her feet quite a bit. She has not tried any Tylenol for her discomfort. Allergies cinnamon Allergy (Verified 10/01/18 08:29) Swelling Laboratory Studies: Laboratory Tests 10/01/18 Range/Units 08:20 Urine Color Yellow (Yellow) Urine Clarity Clear (Clear) Urine pH 7.0 (5.0 - 8.0) Ur Specific [place] 1.010 (1.002-1.030) Urine Protein Negative (Negative) mg/dl Urine Glucose (UA) Normal (Normal) mg/dl Urine Ketones Negative (Negative) mg/dl Urine Occult Blood Negative (Negative) /ul Urine Nitrite Negative (Negative) Urine Bilirubin Negative (Negative) mg/dL Urine Urobilinogen Normal (Normal) mg/dl Ur Leukocyte Esterase Negative (Negative) /ul Urine RBC 0 SEEN (0-5) /hpf Urine WBC 0 SEEN (0-5) /hpf Ur Squamous Epith Cells 0 SEEN (5-10) /hpf Urine Bacteria 0 SEEN (None Seen) /hpf Urine Mucus 0 SEEN (<or=2+) /hpf Physical Exam Cervix Dilation (cm): 0 Station: -2 Effacement (%): 50 NST - FHR Rate Baby A NST Reactive:: Yes FHR Category:: Category I Impression/Plan 34+ week intrauterine with transient contractions. Urine analysis was negative. Cervix nonthreatening. No contractions noted on monitor. Reactive nonstress test. Plan discharge to home with routine instructions. Recommended Tylenol this morning and this afternoon for continued discomfort and to increase p.o. fluids today.
== END 2018-10-01 09:15 | disposition home or self-care (01) ==
LOC: WPOUT 08:17 → WP 08:18
PROVIDERS: Visit Provider Obstetrics & Gynecology
DX: O60.03 Preterm labor without delivery, third trimester (principal); Z3A.34 34 weeks gestation of pregnancy
CPT/HCPCS: 59025; 59050; 81001; 99218; G0378

== ENCOUNTER → 2018-10-11 | Outpatient (CLI) | payer MEDICAID, SELFPAY ==
[2018-10-01 08:20] VITALS: BMI 24.4
== END | disposition home or self-care (01) ==
LOC: LABSPEC 16:42
PROVIDERS: Visit Provider Obstetrics & Gynecology
DX: Z36.85 Encounter for antenatal screening for Streptococcus B (principal)
CPT/HCPCS: 87077; 87081; 87186

== ENCOUNTER 2018-10-14 19:35 | Outpatient (CLI) | payer MEDICAID, SELFPAY ==
[2018-10-14 20:07] VITALS: BMI 24.3
[2018-10-14 20:22] LABS: Color, Urine Straw (Yellow); Glucose, Dipstick Normal (Normal); Ketone-Dipstick Negative (Negative); Leukocyte Esterase-Dipstick Negative /ul (Negative); Nitrite-Dipstick Negative (Negative); Occult Blood-Urine 25 /ul (Negative); Protein-Dipstick Negative (Negative); Urine Bilirubin Dipstick Negative (Negative); Urine Clarity Clear (Clear); Urine Urobilinogen Normal (Normal)
[2018-10-14 21:05] VITALS: RESP 18
--- NOTE | 2018-10-18 09:09 | OB.TRI.HP_ITS ---
History of Present Illness Date of Service: 10/14/18 Was patient seen by the physician?: No Reason For Visit: R/O LABOR Date of Service: 10/14/18 Final ROSETTE: 11/08/18 Final ROSETTE Source: US <20 weeks Gestational age: 36 Weeks and 3 Days History of Present Illness: 23 yo female at 36 + wk presents with back pain and concern re well being. Was told in ofc at a prior appt that she has oligohydramnios. Allergies cinnamon Allergy (Verified 10/14/18 20:06) Swelling burning Laboratory Studies: Laboratory Tests 10/14/18 Range/Units 20:03 Urine Color Straw (Yellow) Urine Clarity Clear (Clear) Urine pH 7.0 (5.0 - 8.0) Ur Specific [place] 1.010 (1.002-1.030) Urine Protein Negative (Negative) mg/dl Urine Glucose (UA) Normal (Normal) mg/dl Urine Ketones Negative (Negative) mg/dl Urine Occult Blood 25 H (Negative) /ul Urine Nitrite Negative (Negative) Urine Bilirubin Negative (Negative) mg/dL Urine Urobilinogen Normal (Normal) mg/dl Ur Leukocyte Esterase Negative (Negative) /ul Physical Exam Vitals: Vital Signs Resp 18 10/14/18 21:05 NST - FHR Rate Baby A Baseline: 120-130s avg variability. Accels. Reactive NST Variability:: Moderate Accelerations:: 15 x 15 Decelerations:: None NST Reactive:: Yes, Appropriate for gestational age FHR Category:: Category I Uterine Activity:: Irregular UCs and mild irritability Impression/Plan 36 3/7 wk EGA . Oligo reported FALSE LABOR. NST reactive. Back pain 2/2 musculoskeletal, advanced . Keep next ofc appt Home.
== END 2018-10-14 21:05 | disposition home or self-care (01) ==
LOC: WPOUT 19:54 → WP 20:06
PROVIDERS: Visit Provider Obstetrics & Gynecology
DX: O47.03 False labor before 37 completed weeks of gestation, third trimester (principal); O26.893 Other specified pregnancy related conditions, third trimester; M54.9 Dorsalgia, unspecified; O41.03X0 Oligohydramnios, third trimester, not applicable or unspecified; Z3A.36 36 weeks gestation of pregnancy
CPT/HCPCS: 59025; 59050; 81002; 99218; G0378

== ENCOUNTER 2018-10-22 19:10 | Outpatient (CLI) | payer MEDICAID, SELFPAY ==
[2018-10-22 20:00] VITALS: BMI 25.7
[2018-10-22 20:32] LABS: ROM Internal Control Test YES-OK TO RESULT pt. (Internal QC); ROM Patient Test Negative (Negative)
--- NOTE | 2018-10-25 20:14 | OB.TRI.NOTE ---
- Problem List (1) 37 weeks gestation of Status: Acute History of Present Illness Date of Service: 10/22/18 Was patient seen by the physician?: No Reason For Visit: RULE OUT LABOR Date of Service: 10/22/18 Final ROSETTE: 11/02/18 Final ROSETTE Source: US <20 weeks Gestational age: 37 Weeks and 3 Days History of Present Illness: 23yo @ 37 3/7wga with c/o leaking of fluid. Allergies cinnamon Allergy (Verified 10/22/18 20:02) Swelling burning Laboratory Studies: Laboratory Tests 10/22/18 Range/Units 19:56 Vag Amniotic Fld Detect Negative (Negative) NST - FHR Rate Baby A Baseline: 120 Variability:: Moderate Accelerations:: 15 x 15 Decelerations:: None NST Reactive:: Yes FHR Category:: Category I Uterine Activity:: 2/10 min Impression/Plan Dx False labor Cat I FHR ROM plus negative d/c home
== END 2018-10-22 21:00 | disposition home or self-care (01) ==
LOC: WPOUT 19:55 → WP 19:56
PROVIDERS: Referring Provider Obstetrics & Gynecology; Visit Provider Obstetrics & Gynecology
DX: O47.1 False labor at or after 37 completed weeks of gestation (principal); Z3A.37 37 weeks gestation of pregnancy
CPT/HCPCS: 59025; 59050; 84112; 94760; 99218; G0378

== ENCOUNTER 2018-10-28 21:57 | Outpatient (CLI) | payer MEDICAID, SELFPAY ==
[2018-10-28 22:17] VITALS: BMI 25.2
[2018-10-28 22:46] LABS: ROM Internal Control Test YES-OK TO RESULT pt. (Internal QC); ROM Patient Test Negative (Negative)
--- NOTE | 2018-10-29 07:45 | OB.TRI.NOTE ---
History of Present Illness Date of Service: 10/28/18 Was patient seen by the physician?: No Reason For Visit: RULE OUT LABOR Date of Service: 10/28/18 Final ROSETTE: 11/08/18 Final ROSETTE Source: US <20 weeks Gestational age: 38 Weeks and 3 Days History of Present Illness: 38+ week intrauterine presents with possible rupture of membranes. Minimal contractions have been noted. care has been unremarkable for oligohydramnios monitored with nonstress testing twice weekly and amniotic fluid index weekly. Allergies cinnamon Allergy (Verified 10/28/18 22:29) Swelling burning Laboratory Studies: Laboratory Tests 10/28/18 Range/Units 22:10 Vag Amniotic Fld Detect Negative (Negative) NST - FHR Rate Baby A NST Reactive:: Yes FHR Category:: Category I Impression/Plan 38+ week intrauterine with vaginal discharge. ROM test was negative. Nonstress test reactive with only occasional contraction noted. Released to home with routine instructions. To return with decreased movement, labor, or leaking. Otherwise routine follow-up in the office.
== END 2018-10-28 23:00 | disposition home or self-care (01) ==
LOC: WPOUT 22:16 → WP 22:16
PROVIDERS: Referring Provider Obstetrics & Gynecology; Visit Provider Obstetrics & Gynecology
DX: O41.03X0 Oligohydramnios, third trimester, not applicable or unspecified (principal); Z3A.38 38 weeks gestation of pregnancy
CPT/HCPCS: 59025; 59050; 84112; 99218; G0378

== ENCOUNTER 2018-10-31 03:21 | Inpatient (IN) | payer MEDICAID, SELFPAY ==
[2018-10-31] MEDS: Lactated Ringers 1,000 ML 50 ML IV ×4 (03:45→14:01)
[2018-10-31 03:48] VITALS: BMI 25.2
[2018-10-31 04:01] LABS: Absolute Lymphocyte Count 3.04 X10^3/uL (0.83-4.51); Basophil# 0.05 X10^3/uL; Basophil% 0.4 % (0-1); Eosinophil# 0.32 X10^3/uL; Eosinophils% 2.3 % (0-5); Hemoglobin 10.6 g/dL (12.0-15.0); Lymphocyte # 3.04 X10^3/ul (4.0); Lymphocyte % 22.1 % (19-41); Mean Corp Hgb Conc 32.1 g/dL (32-36); Mean Corpuscular Hgb 27.6 pg (27.0-32.0); Mean Corpuscular Volume 85.9 fL (81-99); Monocyte# 1.26 X10^3/uL; Monocyte% 9.2 % (0-10); NRBC Flagged by Analyzer 0 % (0-5); Neutrophil # 8.97 X10^3/uL (2.7-7.7); Neutrophil % 65.2 % (47-70); Platelet Count 285 K/mm3 (150-450); RBC Distribution Width CV 14.3 % (11.6-14.6); RBC Distribution Width SD 44.3 fl (35.1-43.9); Red Blood Count 3.84 M/mm3 (4.2-5.4); White Blood Count 13.8 K/mm3 (4.4-11.0)
[2018-10-31] MEDS: fentaNYL-bupivacaine (epidural) 100 ML BAG EPIDURAL ×2 (05:23→10:26)
[2018-10-31 05:50] LABS: Amphetamine Urine VISTA NEGATIVE (<1000 ng/mL); Barbiturate Urine VISTA NEGATIVE (< 200 ng/mL); Benzodiazepine Urine VISTA NEGATIVE (< 200 ng/mL); Cocaine Urine VISTA NEGATIVE (< 300 ng/mL); Ecstacy Urine VISTA NEGATIVE (< 500 ng/mL); Methadone Urine VISTA NEGATIVE (< 300 ng/mL); PCP Urine VISTA NEGATIVE (< 25 ng/mL); THC Urine VISTA NEGATIVE (< 50 ng/mL); Vista UDS pH Range 7
--- NOTE | 2018-10-31 07:07 | HP.PCM_ITS ---
History and Physical Date of Admission: 10/31/18 [facility] History of this : 23 yo female Ab1 with EDC 11/08/2018 by 9 weeks 0 days Ultrasound, presents to Labor and Delivery. care remarkable for - Oligo JER=8.9cm at 36 wks; start 2x/wk NST and weekly JER, IMMUNE to chickenpox IgG positive. Presents to L and D with gross SROM at home. Was scheduled for induction today for worsening oligohydramnios. Pertinent Past Medical History: smoker early Allergies: No Known Allergies Medications: During - Macrobid 100 mg capsule; Tamiflu 75 mg capsule; Tamiflu 75 mg capsule; 28 mg iron-800 mcg tablet; lugoqrbgov-mbpdollhmvmfr-gnoeiuxt 50 mg-325 mg-40 mg tablet; ferrous gluconate 324 mg (37.5 mg iron) tablet Review of Systems: Non-contributory PHYSICAL EXAMINATION General Appearence: 23 yo female in no acute distress Vital Signs: AF, VSS Heart: RRR without rubs or gallops Lungs: CTA x 2 Breasts: deferred Abdomen: gravid Pelvis: Cervix: 2cm now 4 cm Presentation:cephalic Station: -2 Fetus: Size: AGA Movement: present Heart: present Impression /Plan: Intrauterine in labor. Preparations in progress for delivery. Expect .
--- NOTE | 2018-10-31 07:55 | PCM.PN.BLA ---
Progress Note 23 yo with oligo presents in early labor, SROM at 0200 today. A positive RI. GBS positive and abx prophylaxis Multiple visitors in room Appears comfortable w/ epidural. AVSS EFM 120-130s with accels avg variability. Ucs initially this am q 1-3 mins, now q 2-5+ minutes CX: deferred, but last check approx 4/80/-2 A/P: 23 yo at 38 6/7 wk EGA early labor. Was scheduled for induction today for oligo, but presented in labor with SROM. Pitocin to start. watch continued progress, descent.
[2018-10-31] MEDS: Oxytocin 30 units/NS 500 ml 30 UNITS/500 ML IV.SOLN IV (08:22)
--- NOTE | 2018-10-31 12:58 | PN_ITS ---
Progress Note 38 6/7 wk SROM Oligo Comfortable w/ epidural AVSS no pitocin EFM to IFM: Category I to II tracing. Baseline 120-130s accels good variabi lity. Late decelerations? variable configuration at onset with return to baseline within about 1 min each UCs noted. IUPC and scalp lead in place. CX: 8 cm per last RN check. A/P: 38 6/7 wk SROM labor. Pitocin off due to ? lates, some with variable configuration/onset. Amnioinfusion planned. 300 cc bolus with 150 cc/ hr then if good return. Continue spont labor, progression to 8 cm already noted. Anticipate
[2018-10-31] MEDS: Amnioinfusion- 0.9% NS 1,000 ML IV.SOLN. INTRA-UTER (13:02)
[2018-10-31] MEDS: Oxytocin 30 units/NS 500 ml 30 UNITS/500 ML IV.SOLN 334 UNITS IV (15:35)
[2018-10-31] MEDS: Oxytocin 30 units/NS 500 ml 30 UNITS/500 ML IV.SOLN 167 UNITS IV (16:25)
[2018-10-31] MEDS: 0.9% Saline Lock 10 ML Syringe IV (17:25)
--- NOTE | 2018-10-31 18:41 | PCM.OPRPT ---
Vaginal Delivery Maternal Presentation: Spontaneous Rupture of Membranes 38 6/7 wk EGA SROM Oligo Amniotic Membrane Rupture Type: Spontaneous at home Amniotic Fluid Description: Clear Final ROSETTE: 11/08/18 Gestational age: 38 Weeks and 6 Days Date of Procedure: 10/31/18 Pre-Operative Diagnosis: 38 6/7 wk SROM, early labor. Oligohydramnioa Post-Operative Diagnosis: Same Surgery/ Procedure Performed: Spontaneous Vaginal Delivery Type of Anesthesia: Epidural Description of Procedure: Of a laura viable male over intact perineum Head delivered SHANNON> OP and nares bulb suctioned on perineum. No nuchal cord. Shoulders delivered easily. to maternal abdomen with spont cry. Delayed cord clamping. Cord then clamped times two and cut. apgars 9/9 3320 gm PP exam Abrasion at anterior L labia minora. No lacerations noted Placenta delivered by spont expulsion, expression. 3V cord, normal appearing and intact with trailing membranes EBL 350 cc Pt and tolerated delivery well. To recovery, stable condition Ray Klever counts correct times two Presentation: Vertex, SHANNON Placental Delivery Description: Spontaneous, Expressed Placenta Disposition: [facility] Cord Vessel Description: 3 Vessels Cord Entanglement: None Drain: Zazueta to straight drain Estimated Blood Loss: 350 (1 minute): 9 (5 minute): 9 Episiotomy Description: None Laceration: None Medications given after delivery: IV Pitocin Complications: None
--- NOTE | 2018-10-31 18:50 | DCINST_ITS ---
Discharge Diet: No Restrictions Discharge Activity: May Shower, May Take a Tub Bath May resume sexual activity in: 4-6 weeks Additional Activity Instructions:: Nothing in the vagina for 4-6 weeks. You may return to work/school in 6 weeks. Additional Instructions: If you experience any of the following, contact your healthcare provider. * Bleeding that soaks a pad every hour for 2 hours * Fever 100.4 or higher * Unrelieved abdominal pain * Problems urinating (including inability to urinate or burning while urinating). * Visual changes * Severe headache * Flu-like symptoms * Pain or redness in one of both of your breasts * Pain, warmth, tenderness or swelling in your legs, especially the calf area * Frequent nausea and vomiting * Symptoms of depression or anxiety If you experience any of the following, call 911 or go to the nearest Emergency Room. * Chest pain * Problems breathing * Seizure activity * Partial or complete paralysis of a body part, slurred speech, weakness or drooping of the face, or a sudden inability to walk or hold your balance Allergies/Adverse Reactions: Allergies cinnamon Allergy (Verified 10/31/18 03:46) Swelling burning Medications to take at Discharge Ferrous Sulfate [Iron] 325 mg PO BID 10/01/18 Vits [Prenatabs FA] 1 tab PO DAILY 10/01/18 Please Follow Up With: Micaela Crabtree MD - [phone] When: Call to make an appointment with your doctor in 6 weeks. Primary Care Physician: Care Physician,No Primary [Primary Care Provider] - Test Results: Test results from this visit will be discussed in further detail at your follow- up appointment, if applicable. Proposed Discharge Date: 11/02/18
--- NOTE | 2018-10-31 18:50 | PCM.DCVAG ---
Discharge Diet: No Restrictions Discharge Activity: May Shower, May Take a Tub Bath May resume sexual activity in: 4-6 weeks Additional Activity Instructions:: Nothing in the vagina for 4-6 weeks. You may return to work/school in 6 weeks. Additional Instructions: If you experience any of the following, contact your healthcare provider. Bleeding that soaks a pad every hour for 2 hours Fever 100.4 or higher Unrelieved abdominal pain Problems urinating (including inability to urinate or burning while urinating). Visual changes Severe headache Flu-like symptoms Pain or redness in one of both of your breasts Pain, warmth, tenderness or swelling in your legs, especially the calf area Frequent nausea and vomiting Symptoms of depression or anxiety If you experience any of the following, call 911 or go to the nearest Emergency Room. Chest pain Problems breathing Seizure activity Partial or complete paralysis of a body part, slurred speech, weakness or drooping of the face, or a sudden inability to walk or hold your balance Allergies/Adverse Reactions: Allergies cinnamon Allergy (Verified 10/31/18 03:46) Swelling burning Medications to take at Discharge Ferrous Sulfate [Iron] 325 mg PO BID 10/01/18 Vits [Prenatabs FA] 1 tab PO DAILY 10/01/18 Please Follow Up With: Micaela Crabtree MD - [phone] When: Call to make an appointment with your doctor in 6 weeks. Primary Care Physician: Care Physician,No Primary [Primary Care Provider] - Test Results: Test results from this visit will be discussed in further detail at your follow-up appointment, if applicable. Proposed Discharge Date: 11/02/18
[2018-10-31 20:25] VITALS: BP 128/79; PULSE 80; RESP 18; TEMP 37.7
[2018-11-01 00:44] VITALS: BP 108/68; PULSE 76; RESP 18; TEMP 36.6
[2018-11-01 04:15] VITALS: BP 116/57; PULSE 70; RESP 18; TEMP 36.8
[2018-11-01 07:54] VITALS: BP 116/70; PULSE 72; RESP 16; TEMP 37.1; O2SAT 98
[2018-11-01] MEDS: Acetaminophen 500 MG Tablet 1000 MG PO (08:22)
[2018-11-01] MEDS: Ibuprofen 600 MG Tablet PO ×2 (08:23→22:58)
[2018-11-01] MEDS: Dibucaine 30 GM Tube 1 APPLIC TOPICAL (08:23)
--- NOTE | 2018-11-01 08:29 | PCM.PN.OB ---
Subjective: PPD#1 Doing well. Breast feeding. Stating to nurse 7 1/2 out of 10 pain at back right now but NAD and is conversant. - Physical Exam General: Alert, Oriented x3, Cooperative, No apparent distress HEENT: Atraumatic Neck: Supple Abdomen: Soft - Fundus firm NT at inferior to umbilicus Neurological: Cranial nerves II-XII grossly intact Psych/Mental Status: Normal Affect Vital Signs Temp Pulse Resp BP Pulse Ox 98.7 F 72 16 116/70 98 11/01/18 07:54 11/01/18 07:54 11/01/18 07:54 11/01/18 07:54 11/01/18 07:54 Oxygen Delivery Method Room Air Weight: 65.5 kg Body Mass Index (BMI) 25.2 Intake and Output for Last 24 Hours 10/30/18 10/31/18 11/01/18 23:59 23:59 23:59 Intake Total 3038 / 3038 Output Total 2550 / 2550 Balance 488 / 488 Medical Necessity - Tobacco Use Smoking Status: Former smoker Assessment/Plan All Active Problems 37 weeks gestation of (Resolved) PPD#1 Stable pp. Continue care. Anticipate dischg after 48 hr post delivery, GBS positive, treated in labor.
[2018-11-01 12:19] VITALS: BP 115/55; PULSE 54; RESP 16; TEMP 36.8; O2SAT 97
[2018-11-01 16:45] VITALS: BP 120/73; PULSE 75; RESP 16; TEMP 36.8; O2SAT 98
[2018-11-01] MEDS: Senna/Docusate Sodium 1 Tablet PO (18:00)
[2018-11-01 19:47] VITALS: BP 110/68; PULSE 63; RESP 16; TEMP 36.8; O2SAT 98
[2018-11-02 03:20] VITALS: BP 116/54; PULSE 77; RESP 16; TEMP 36.2; O2SAT 98
[2018-11-02 08:15] VITALS: BP 123/79; PULSE 74; RESP 16; TEMP 36.8
--- NOTE | 2018-11-02 08:27 | PCM.PN.OB ---
Subjective: PPD#2 Doing well. nursing. Minimal pain. Baby has been released today, needs to watch CPR video. - Physical Exam General: Alert, Oriented x3, Cooperative, No apparent distress HEENT: Atraumatic, EOMI Neck: Supple Abdomen: Soft - fundus firm NT inferior to umbilicus Psych/Mental Status: Normal Affect Vital Signs Temp Pulse Resp BP Pulse Ox 97.2 F L 77 16 116/54 L 98 11/02/18 03:20 11/02/18 03:20 11/02/18 03:20 11/02/18 03:20 11/02/18 03:20 Oxygen Delivery Method Room Air Weight: 65.5 kg Body Mass Index (BMI) 25.2 Intake and Output for Last 24 Hours 10/31/18 11/01/18 11/02/18 23:59 23:59 23:59 Intake Total 3038 / 3038 900 / 900 Output Total 2550 / 2550 Balance 488 / 488 900 / 900 Medical Necessity - Tobacco Use Smoking Status: Former smoker Assessment/Plan All Active Problems 37 weeks gestation of (Resolved) PPD#2 Stable pp. Dischg home today. RTO in 6 wk for check as planned.
== END 2018-11-02 11:30 | disposition home or self-care (01) | DRG 560 ==
PROVIDERS: Admitting Provider Obstetrics & Gynecology; Referring Provider Obstetrics & Gynecology; Visit Provider Obstetrics & Gynecology
DX: O41.03X0 Oligohydramnios, third trimester, not applicable or unspecified (principal); Z3A.38 38 weeks gestation of pregnancy; Z37.0 Single live birth; Z87.891 Personal history of nicotine dependence; O71.82 Other specified trauma to perineum and vulva; O99.824 Streptococcus B carrier state complicating childbirth
CPT/HCPCS: 59025; 59050; 80307; 84112; 85025; 86850; 86900; 99218; J7030; J7120; A4216; G0378

== ENCOUNTER → 2018-12-13 16:44 | Outpatient (CLI) | payer MEDICAID, SELFPAY | PROVIDERS: Visit Provider Obstetrics & Gynecology | DX: Z12.4 Encounter for screening for malignant neoplasm of cervix (principal) | CPT/HCPCS: 88175; G0145 ==

== ENCOUNTER 2019-01-14 02:27 | Emergency (ER) | payer MEDICAID, SELFPAY ==
[2019-01-14 02:29] VITALS: BP 123/71; PULSE 70; RESP 20; TEMP 36.6; O2SAT 99; BMI 22.3
--- NOTE | 2019-01-14 02:39 | ED.VIS.GEN ---
History of Present Illness Chief Complaint: Flank Pain Informant: Patient Narrative: Patient stated that she thinks she has a right-sided kidney stone. She woke up an hour ago with excruciating right flank pain. Is a sharp stabbing pain associate with nausea. History of 2 kidney stones in the past. One she was able to pass on her own and the other one required resection remotely. No fevers or chills. She has some mild soreness in her right back yesterday and thinks that might of been the start of her kidney stone. This feels similar to previous kidney stones. Current severity is moderate. No home treatment. Past Medical History - Allergies and Home Meds Allergies/Adverse Reactions: Allergies cinnamon Allergy (Verified 01/14/19 02:28) Swelling burning Primary Care Physician: Care Physician,No Primary [Primary Care Provider] - Prior records reviewed: Yes Past Medical History: - - Kidney stone Surgical History: - - Kidney stone Smoking Status: Current every day smoker Alcohol: None Drugs: None Review of Systems General: Denies: Chills, Fever, Sweats Eyes: Denies: Visual changes - bilaterally, Diplopia ENT: Denies: Rhinorrhea, Sore throat Cardiovascular: Denies: Chest pain, Palpitations Respiratory: Denies: Dyspnea, Cough, Dyspnea on exertion Gastrointestinal: Reports: Nausea. Denies: Abdominal pain, Vomiting, Diarrhea, Melena, Hematochezia Genitourinary: Denies: Dysuria, Hematuria, Frequency Musculoskeletal: Reports: Back pain - Right flank pain. Denies: Extremity Pain Skin: Denies: Rash, Wounds Neurological: Denies: Headache, Weakness, Numbness Physical Exam Vital Signs/Narrative: Vital Signs Temp Pulse Resp BP Pulse Ox 01/14/19 02:29 97.9 F 70 20 H 123/71 H 99 General: Well nourished, Well developed, No Acute Distress Head: Normocephalic, Atraumatic Eyes: Perrl, EOMI ENT: Moist mucous membranes, No rhinorrhea Neck: Supple, Nontender Cardiovascular: Regular rate, Regular rhythm, No murmurs Respiratory: No distress, CTA bilaterally, Chest nontender Abdomen: Soft, Nontender, Nondistended, Normal bowel sounds Back: Nontender, Normal Inspection Extremities: Nontender, No edema Skin: Normal color, No rash Neurological: Alert, Oriented x3, Cranial nerves II-XII grossly intact, Normal Strength, Normal Sensation Psychological: Normal affect, Normal Mood Diagnostic/Tx/Re-eval Laboratory Results 01/14/19 01/14/19 01/14/19 02:40 02:40 02:40 WBC 7.0 RBC 3.77 L Hgb 10.5 L Hct 32.6 L MCV 86.5 MCH 27.9 MCHC 32.2 RDW Std Deviation 57.6 H RDW Coeff of Viry 18.1 H Plt Count 258 MPV 10.7 Immature Gran % (Auto) 0.300 Neut % (Auto) 53.1 Lymph % (Auto) 29.9 Day % (Auto) 11.6 H Eos % (Auto) 4.4 Baso % (Auto) 0.7 Absolute Neuts (auto) 3.7 Absolute Lymphs (auto) 2.09 Nucleated RBC % 0 Sodium 144 Potassium 3.8 Chloride 113 H Carbon Dioxide 23.0 Anion Gap 8 BUN 14 Creatinine 0.74 Estim Creat Clear Calc 99.48 Est GFR (MDRD) Af Amer 128 Est GFR (MDRD) Non-Af 106 BUN/Creatinine Ratio 19.0 Glucose 93 Calcium 8.9 Serum , Qual NEGATIVE Urine Color Urine Clarity Urine pH Ur Specific [place] Urine Protein Urine Glucose (UA) Urine Ketones Urine Occult Blood Urine Nitrite Urine Bilirubin Urine Urobilinogen Ur Leukocyte Esterase Urine RBC Urine WBC Ur Squamous Epith Cells Calcium Oxalate Crystal Urine Bacteria Urine Mucus 01/14/19 03:12 WBC RBC Hgb Hct MCV MCH MCHC RDW Std Deviation RDW Coeff of Viry Plt Count MPV Immature Gran % (Auto) Neut % (Auto) Lymph % (Auto) Day % (Auto) Eos % (Auto) Baso % (Auto) Absolute Neuts (auto) Absolute Lymphs (auto) Nucleated RBC % Sodium Potassium Chloride Carbon Dioxide Anion Gap BUN Creatinine Estim Creat Clear Calc Est GFR (MDRD) Af Amer Est GFR (MDRD) Non-Af BUN/Creatinine Ratio Glucose Calcium Serum , Qual Urine Color Yellow Urine Clarity Cloudy Urine pH 5.0 Ur Specific [place] 1.030 Urine Protein 30 H Urine Glucose (UA) Normal Urine Ketones 5 H Urine Occult Blood 250 H Urine Nitrite Negative Urine Bilirubin 1 H Urine Urobilinogen 1 H Ur Leukocyte Esterase 25 H Urine RBC 25-50 SEEN Urine WBC 0 SEEN Ur Squamous Epith Cells 5-10 SEEN Calcium Oxalate Crystal 2+ Urine Bacteria 0 SEEN Urine Mucus 3+ - Medical Decision Making Given IV fluids Toradol morphine Zofran. Lab work obtained lab work shows calcium oxalate crystals in the urine with microscopic hematuria. CBC BMP unremarkable. Patient felt much better after treatment. Will be discharged with Percocet and Zofran. We will follow-up with urology. I do not feel she needs a repeat CAT scan. I discussed this with her. She has had 2 in the past that showed kidney stones. She has calcium oxalate crystals in her urine with hematuria. I feel a trial of pain medicine is indicated at this time. If she does not pass the stone she will follow-up with urology or return. ED Disposition - Plan for ED Patient: Disposition: Home or Assisted Living Diagnosis: Kidney stone on right side Instructions: KIDNEY STONE w/ Colic Prescriptions: Oxycodone HCl/Acetaminophen [Percocet 5/325] 1 - 2 tab PO Q6H PRN PRN 3 Days #12 tab PRN Reason: Pain Prescription Printed Ondansetron [Zofran Odt] 4 mg PO Q8H PRN PRN #10 tab PRN Reason: Nausea Prescription Printed Referrals: Care Physician,No Primary [Primary Care Provider] - David Lee MD [STAFF PHYSICIAN] -
[2019-01-14] MEDS: Ondansetron 4 MG/2 ML Vial IV (02:44)
[2019-01-14] MEDS: 0.9% Normal Saline 1,000 ML 1000 ML IV (02:44)
[2019-01-14] MEDS: Morphine 4 MG/ML Syringe IV (02:44)
[2019-01-14] MEDS: Ketorolac 30 MG/ML Syringe IV (02:44)
[2019-01-14 02:48] LABS: Absolute Lymphocyte Count 2.09 X10^3/uL (0.83-4.51); Absolute Neutrophil Count 3.7 X10^3/uL (2.0-7.7); Basophil# 0.05 X10^3/uL; Basophil% 0.7 % (0-1); Eosinophil# 0.31 X10^3/uL; Eosinophils% 4.4 % (0-5); Hematocrit 32.6 % (37-47); Hemoglobin 10.5 g/dL (12.0-15.0); Lymphocyte # 2.09 X10^3/ul (4.0); Lymphocyte % 29.9 % (19-41); Mean Corp Hgb Conc 32.2 g/dL (32-36); Mean Corpuscular Hgb 27.9 pg (27.0-32.0); Mean Corpuscular Volume 86.5 fL (81-99); Mean Platelet Vol. 10.7 fl (6.2-12.0); Monocyte# 0.81 X10^3/uL; Monocyte% 11.6 % (0-10); NRBC Flagged by Analyzer 0 % (0-5); Neutrophil # 3.72 X10^3/uL (2.7-7.7); Neutrophil % 53.1 % (47-70); Platelet Count 258 K/mm3 (150-450); RBC Distribution Width CV 18.1 % (11.6-14.6); RBC Distribution Width SD 57.6 fl (35.1-43.9); Red Blood Count 3.77 M/mm3 (4.2-5.4)
[2019-01-14 02:57] LABS: Internal QC Validated? YES +Cl - CLEAR BKGD; Pregnancy, Serum, hCG Quali. NEGATIVE Negative
[2019-01-14 03:02] LABS: Anion Gap 8 (5-15); BUN 14 mg/dL (7-18); Calcium,Total 8.9 mg/dL (8.5-10.1); Chloride 113 mmol/L (98-107); Creatinine, Serum 0.74 mg/dL (0.55-1.02); EST Glomerular Filtration Rate 106 mL/min (>60); Est Glom Filt Rate - Afr Amer 128 mL/min (>60); Estimated Creatinine Clearance 99.48 ml/min; Glucose 93 mg/dL (74-106); Potassium 3.8 mmol/L (3.5-5.1); Sodium Level 144 mmol/L (136-145)
[2019-01-14 03:18] LABS: Bacteria 0 SEEN /hpf (None Seen); White Blood Cells 0 SEEN /hpf (0-5)
[2019-01-14 03:38] LABS: Color, Urine Yellow (Yellow); Glucose, Dipstick Normal (Normal); Ketone-Dipstick 5 mg/dl (Negative); Leukocyte Esterase-Dipstick 25 /ul (Negative); Nitrite-Dipstick Negative (Negative); Occult Blood-Urine 250 /ul (Negative); Protein-Dipstick 30 mg/dl (Negative); Urine Bilirubin Dipstick 1 mg/dL (Negative); Urine Clarity Cloudy (Clear); Urine Urobilinogen 1 mg/dl (Normal)
[2019-01-14 03:39] LABS: Calcium Oxalate Crystals Ur 2+ /hpf (<or=2+); Mucous, Urine 3+ /hpf (<or=2+); Red Blood Cells-Urine 25-50 SEEN /hpf (0-5); Squamous Epithelial Cells - UA 5-10 SEEN /hpf (5-10)
[2019-01-14 03:50] VITALS: BP 109/72; PULSE 62; O2SAT 100
== END 2019-01-14 03:59 | disposition home or self-care (01) ==
PROVIDERS: Emergency Provider Emergency Medicine
DX: N20.0 Calculus of kidney (principal); Z87.442 Personal history of urinary calculi; F17.200 Nicotine dependence, unspecified, uncomplicated
CPT/HCPCS: 80048; 81001; 84703; 85025; 96361; 96374; 96375; 99283; J7030; A4216; J2405

== ENCOUNTER → 2019-01-19 16:21 | Outpatient (CLI) | payer MEDICAID, SELFPAY ==
[2019-01-14 02:29] VITALS: BMI 22.3
--- NOTE | 2019-01-19 16:24 | CT_ITS ---
STUDY: CT ABDOMEN AND PELVIS WITHOUT CONTRAST REASON FOR EXAM: Female, 23 years old. Pain RADIATION DOSAGE (If Supplied By Facility): DLP = ( 201.31 ) mGycm TECHNIQUE: Transaxial images were obtained from the dome of the diaphragm to the symphysis pubis without oral contrast, and without intravenous contrast. Sagittal and coronal images were reconstructed. Individualized dose optimization techniques were used for this CT. COMPARISON: CT abdomen and pelvis November 04, 2017 FINDINGS: Evaluation of the abdominal viscera is limited in the absence of intravenous contrast. The visualized lung bases are clear. The visualized portions of the heart and pericardium are within normal limits. There are no calcified gallstones present. The liver demonstrates an unremarkable unenhanced appearance. The spleen is normal in size. The pancreas demonstrates an unremarkable unenhanced appearance. The adrenal glands are within normal limits. There are no obstructing renal stones. There is no hydronephrosis. Normal visualized stomach. There is no bowel obstruction or inflammation. The appendix is normal. The aorta is normal in caliber. There is no abdominal or pelvic free air, free fluid, fluid collection or lymphadenopathy. There are no destructive osseous lesions. CT/Abdomen/Pelvis without Cont IMPRESSION: No acute abdominal or pelvic pathology demonstrated on this noncontrast CT. Electronically Signed: Misael Shine, at 16:48 EDT Tel , Service support ,
== END ==
PROVIDERS: Referring Provider Urology; Visit Provider Urology
DX: R10.9 Unspecified abdominal pain (principal)
CPT/HCPCS: 74176

== ENCOUNTER 2019-01-25 12:11 | Day surgery (SDC) | payer MEDICAID, SELFPAY ==
[2019-01-25 12:45] VITALS: BP 105/68; PULSE 78; RESP 15; TEMP 36.9; O2SAT 100; BMI 21.7
--- NOTE | 2019-01-25 12:46 | PCM.DC.URO ---
Discharge Diet: No Restrictions Discharge Activity: May not drive while taking narcotic pain medications. Call your doctor if you observe: Fever of 101 or Higher, Inability to urinate, Shortness of breath, Chest pain, Calf discomfort, Uncontrolled pain Allergies/Adverse Reactions: Allergies cinnamon Allergy (Verified 01/25/19 12:36) Swelling burning Medications to take at Discharge Ferrous Sulfate [Iron] 325 mg PO BID 10/01/18 Sertraline HCl [Zoloft] 50 mg PO DAILY 01/24/19 Orders to be completed after discharge: ,Urine Time Frame: 01/25/19, Facility: [facility], Location: Laboratory Primary Care Physician: Care Physician,No Primary [Primary Care Provider] - Test Results: Test results from this visit will be discussed in further detail at your follow-up appointment, if applicable. Please Follow Up With: Bee Pineda MD When: call office for appt to be seen next week Proposed Discharge Date: 01/25/19
--- NOTE | 2019-01-25 12:47 | OP.PCM_ITS ---
Problem List (1) Left ureteral calculus Status: Acute Report of Operation Date of Procedure: 01/25/19 Pre-Operative Diagnosis: left ureteral calculus Post-Operative Diagnosis: same Surgery/Procedure Performed:: cystoscopy, left ureteroscopy, laser lithotripsy, left ureteral stent Type of Anesthesia:: General Description of Procedure: The patient is a 23-year-old female seen in the office for flank pain consistent with her previous stones. A CT scan revealed a left ureteral calculus with mild hydronephrosis. After an attempt at passage, she now presents for definitive intervention. The patient was taken to the operating room and placed in the operating room table. Anesthesia monitored the head, neck, airway, IV access and vital signs throughout the case. Once anesthesia was appropriately administered the patient was placed into dorsal lithotomy position was prepped and draped in usual sterile fashion. A cystourethroscopy revealed no abnormalities of the bladder mucosa or the urethra. The ureteral orifices were located in correct anatomic position the area of the trigone. A 0.035 Glidewire was easily passed through the left ureteral orifice into the renal pelvis. A semirigid ureteroscopy was performed and the stone was identified in the mid ureter. It was lasered into small pieces which were stone basket extracted. At this time a 6 [place] 24 cm double-J stent was inserted with positioning in the renal pelvis and curling in the urinary bladder. Of note, the patient's distal ureter is very tight and small. Bladder was emptied and the case was terminated. The patient was taken to the recovery room in good condition. There were no complications during the procedure. Grafts/Implants Used: 6x24 JJ stent - Complications None - Admit VTE Documentation VTE Present on Admission: Yes VTE Mechan Device Prophylaxis: SCD's VTE Pharm Prophylaxis ordered?: No Reason prophylaxis not ordered:: Treatment Not Indicated
[2019-01-25 12:55] LABS: Internal QC Validated? YES +Cl - CLEAR BKGD; Pregnancy, Urine Negative Negative
[2019-01-25] MEDS: Lactated Ringers 1,000 ML 100 ML IV (13:01)
[2019-01-25] MEDS: Cefazolin 2 GM in 0.9% Normal Saline 100 ML IV (13:57)
[2019-01-25 14:46] VITALS: BP 105/68; BP 112/57; PULSE 85; RESP 18; TEMP 37.1; O2SAT 100
[2019-01-25 15:00] VITALS: BP 105/68; BP 117/80; PULSE 74; RESP 16; O2SAT 100
[2019-01-25 15:06] VITALS: BP 105/68; BP 118/78; PULSE 74; RESP 16; TEMP 37.3; O2SAT 100
[2019-01-25 15:20] VITALS: BP 105/68
== END 2019-01-25 15:35 | disposition home or self-care (01) ==
LOC: SDC 12:11 → AC 12:13
PROVIDERS: Anesthesiology; Referring Provider Urology; Visit Provider Urology
PROC: 0TJ98ZZ Inspection of Ureter, Via Natural or Artificial Opening Endoscopic (ICD-10-PCS; CPT 52352; principal; 2019-01-25 13:40)
DX: N13.2 Hydronephrosis with renal and ureteral calculous obstruction (principal); F32.9 Major depressive disorder, single episode, unspecified; D64.9 Anemia, unspecified; Z87.442 Personal history of urinary calculi; Z79.899 Other long term (current) drug therapy; F17.200 Nicotine dependence, unspecified, uncomplicated
CPT/HCPCS: 52356; 76000; 81025; J7120; C2617; J2405

== ENCOUNTER 2019-02-01 21:52 | Emergency (ER) | payer MEDICAID, SELFPAY ==
[2019-02-01 21:53] VITALS: BP 159/72; PULSE 90; RESP 18; TEMP 36.2; O2SAT 93; BMI 22.6
--- NOTE | 2019-02-01 22:44 | ED.VISSUMM ---
- ER Visit Summary Date of Service: 02/01/19 Chief Complaint: Sore throat, rhinorrhea History of Present Illness: The patient is a 23 F who presents with sore throat and rhinorrhea that began today. Patient states that her tongue also felt funny like it is swelling. Patient states it feels like it is tingling. Patient states that improves with drinking water. Patient states her rhinorrhea is clear. Patient states her throat pain is worse with swallowing. Patient denies any chest pain. Patient does admit to a cough. Patient denies any sputum production. Patient denies any fevers or chills. Physical Examination: Vital signs are stable. Patient is afebrile. Patient is in no acute distress. The left tympanic membrane has an effusion. The right tympanic membrane is clear. There is no erythema of the tympanic membranes bilaterally. Oral mucosa is pink and moist. There is some mild postnasal drainage. Oropharynx is clear. Airway is patent. There is no edema of the tongue. Neck is supple. Trachea is midline. There is no JVD noted. There is some mild anterior cervical lymphadenopathy. Heart was regular rate and rhythm. Lungs are clear and equal bilaterally. Cranial nerves II through XII are intact. There are no focal motor or sensory deficits noted. Emergency Department Course and Treatment: Patient was advised that this is most likely a viral upper respiratory infection. Since there is no edema of the tongue or airway, I do not feel systemic steroids are necessary. Patient was given a prescription for Flonase nasal spray. Patient was instructed to continue her Zyrtec as needed. Patient was instructed to follow-up with her primary care physician in 5 to 7 days. Patient understood and was agreeable with the plan. All questions were answered. Disposition: Discharge home Impression: Viral upper respiratory infection This note was generated with [employer] dictation software. It may contain incorrect words, spelling, and punctuation that were not noted in review of the chart prior to signing ED Disposition - Plan for ED Patient: Disposition: Home or Assisted Living Diagnosis: Viral upper respiratory infection Instructions: URI, Viral, No Abx (Adult) Prescriptions: Fluticasone 0.05% [Flonase Nasal [place]] 1 spray NASAL BID #1 bottle Prescription Printed Referrals: Care Physician,No Primary [Primary Care Provider] - Wu Renee MD [STAFF PHYSICIAN] - 5-7 Days
[2019-02-01 22:55] VITALS: BP 144/79; PULSE 102; RESP 20; O2SAT 99
== END 2019-02-01 22:58 | disposition home or self-care (01) ==
PROVIDERS: Emergency Provider Emergency Medicine
DX: J06.9 Acute upper respiratory infection, unspecified (principal); Z87.442 Personal history of urinary calculi; F17.200 Nicotine dependence, unspecified, uncomplicated
CPT/HCPCS: 99282

== ENCOUNTER → 2019-09-03 16:04 | Outpatient (CLI) | payer MEDICAID, SELFPAY ==
--- NOTE | 2019-09-03 16:08 | RAD_ITS ---
HISTORY: HISTORY OF KIDNEY STONES, SOME ABDOMINAL PAIN NOW EXAMINATION/TECHNIQUE: XR Abdomen 1 View: COMPARISON: CT scan of the abdomen and pelvis from January 19, 2019 FINDINGS: LINES AND TUBES: None. BOWEL GAS PATTERN: Non-obstructive. No bowel or stomach distention. FREE AIR: Not assessed on a single supine view. ORGANOMEGALY: Not seen. CALCIFICATIONS: Within the left hemipelvis there is a calcification that appears to be more dense peripherally than centrally, likely representing a phlebolith rather than a ureteric stone. Corresponds to a phlebolith from the CT of January 19, 2019. 2 right-sided calcifications are also present. These also correspond to old phleboliths. On the previous study at the level of the left L4 transverse process there is a calcification anterior to the left psoas muscle that could've been a phlebolith or a duplicated left renal vein. It is not identified on the current study LOWER CHEST: No acute pathology. BONES AND SOFT TISSUES: No acute pathology. RAD/Abdomen Single View IMPRESSION: No acute obstructing stones perceived. at 0210 Reported and signed by: Chris Butler MD Electronically Signed: Chris Butler MD at 2:09 EDT Tel , Service support ,
== END ==
PROVIDERS: Referring Provider Urology; Visit Provider Urology
DX: N20.0 Calculus of kidney (principal)
CPT/HCPCS: 74018

== ENCOUNTER → 2019-10-30 16:31 | Outpatient (CLI) | payer MEDICAID, SELFPAY ==
[2019-10-30 17:31] LABS: Absolute Lymphocyte Count 2.13 X10^3/uL (0.83-4.51); Absolute Neutrophil Count 3.1 X10^3/uL (2.0-7.7); Basophil# 0.03 X10^3/uL; Basophil% 0.5 % (0-1); Eosinophils% 3.4 % (0-5); Hematocrit 36.4 % (37-47); Hemoglobin 11.2 g/dL (12.0-15.0); Lymphocyte # 2.13 X10^3/ul (4.0); Lymphocyte % 35.9 % (19-41); Mean Corp Hgb Conc 30.8 g/dL (32-36); Mean Platelet Vol. 11.1 fl (6.2-12.0); Monocyte# 0.51 X10^3/uL; Monocyte% 8.6 % (0-10); NRBC Flagged by Analyzer 0 % (0-5); Neutrophil # 3.05 X10^3/uL (2.7-7.7); Neutrophil % 51.4 % (47-70); Platelet Count 268 K/mm3 (150-450); RBC Distribution Width CV 13.6 % (11.6-14.6); White Blood Count 5.9 K/mm3 (4.4-11.0)
[2019-10-30 18:27] LABS: Vitamin B12 304 pg/mL (211-911)
[2019-10-30 18:36] LABS: Anion Gap 4 (5-15); BUN 14 mg/dL (7-18); BUN/Creat Ratio 20.4 RATIO (10-20); Calcium,Total 8.4 mg/dL (8.5-10.1); Chloride 113 mmol/L (98-107); Creatinine, Serum 0.68 mg/dL (0.55-1.02); EST Glomerular Filtration Rate 114 mL/min (>60); Est Glom Filt Rate - Afr Amer 138 mL/min (>60); Ferritin 19 ng/mL (8-252); Glucose 86 mg/dL (74-106); Iron 39 ug/dL (50-170); Iron Binding Capacity,Total 365 ug/dL (250-450); Potassium 3.7 mmol/L (3.5-5.1); Sodium Level 142 mmol/L (136-145)
== END ==
PROVIDERS: PCP Family Medicine; Referring Provider Family Medicine; Visit Provider Family Medicine
DX: D64.9 Anemia, unspecified (principal); N20.0 Calculus of kidney; F41.9 Anxiety disorder, unspecified
CPT/HCPCS: 36415; 80048; 82607; 82728; 82746; 83540; 83550; 84443; 85025

== ENCOUNTER → 2019-11-12 | Outpatient (CLI) | payer MEDICAID, SELFPAY | END | disposition home or self-care (01) | PROVIDERS: PCP Family Medicine; Referring Provider Nurse Practitioner Family; Visit Provider Nurse Practitioner Family | DX: Z11.59 Encounter for screening for other viral diseases (principal) | CPT/HCPCS: 87635; U0003 ==

== ENCOUNTER → 2019-12-04 15:22 | Outpatient (CLI) | payer MEDICAID, SELFPAY ==
[2019-12-04 18:04] LABS: Absolute Neutrophil Count 4.7 X10^3/uL (2.0-7.7); Basophil# 0.05 X10^3/uL; Basophil% 0.6 % (0-1); Eosinophil# 0.28 X10^3/uL; Eosinophils% 3.6 % (0-5); Hematocrit 38.9 % (37-47); Hemoglobin 12.6 g/dL (12.0-15.0); Mean Corp Hgb Conc 32.4 g/dL (32-36); Mean Corpuscular Volume 89.6 fL (81-99); Monocyte# 0.62 X10^3/uL; NRBC Flagged by Analyzer 0 % (0-5); Neutrophil % 60.5 % (47-70); Platelet Count 257 K/mm3 (150-450); RBC Distribution Width CV 13.9 % (11.6-14.6); RBC Distribution Width SD 44.3 fl (35.1-43.9); Red Blood Count 4.34 M/mm3 (4.2-5.4); White Blood Count 7.8 K/mm3 (4.4-11.0)
[2019-12-04 18:25] LABS: Ferritin 13 ng/mL (8-252); Iron 26 ug/dL (50-170); Iron Binding Capacity,Total 377 ug/dL (250-450)
== END ==
PROVIDERS: PCP Family Medicine; Referring Provider Family Medicine; Visit Provider Family Medicine
DX: D50.9 Iron deficiency anemia, unspecified (principal)
CPT/HCPCS: 36415; 82728; 83540; 83550; 85025

== ENCOUNTER → 2020-01-24 13:51 | Outpatient (CLI) | payer MEDICAID, SELFPAY ==
[2020-01-24 18:00] LABS: Ferritin 16 ng/mL (8-252); Iron 67 ug/dL (50-170); Iron Binding Capacity,Total 324 ug/dL (250-450)
[2020-01-24 18:07] LABS: Absolute Lymphocyte Count 2.05 X10^3/uL (0.83-4.51); Absolute Neutrophil Count 3.6 X10^3/uL (2.0-7.7); Basophil# 0.05 X10^3/uL; Basophil% 0.8 % (0-1); Eosinophil# 0.22 X10^3/uL; Eosinophils% 3.4 % (0-5); Hematocrit 35.4 % (37-47); Hemoglobin 11.2 g/dL (12.0-15.0); Lymphocyte # 2.05 X10^3/ul (4.0); Lymphocyte % 31.6 % (19-41); Mean Corp Hgb Conc 31.6 g/dL (32-36); Mean Corpuscular Hgb 28.1 pg (27.0-32.0); Mean Corpuscular Volume 88.9 fL (81-99); Mean Platelet Vol. 11.5 fl (6.2-12.0); Monocyte# 0.59 X10^3/uL; Monocyte% 9.1 % (0-10); NRBC Flagged by Analyzer 0 % (0-5); Neutrophil # 3.56 X10^3/uL (2.7-7.7); Neutrophil % 54.8 % (47-70); Platelet Count 236 K/mm3 (150-450); RBC Distribution Width CV 13.7 % (11.6-14.6); RBC Distribution Width SD 45.1 fl (35.1-43.9); Red Blood Count 3.98 M/mm3 (4.2-5.4); White Blood Count 6.5 K/mm3 (4.4-11.0)
== END ==
PROVIDERS: PCP Family Medicine; Referring Provider Family Medicine; Visit Provider Family Medicine
DX: D50.9 Iron deficiency anemia, unspecified (principal)
CPT/HCPCS: 36415; 82728; 83540; 83550; 85025

== ENCOUNTER → 2020-03-18 | Outpatient (CLI) | payer MEDICAID, SELFPAY ==
[2020-03-21 03:07] LABS: Chlamydia By Nucleic Acid AMP Negative (Negative)
[2020-03-21 10:54] LABS: Gonococcus By Nucleic Acid AMP Negative (Negative)
== END | disposition home or self-care (01) ==
LOC: LABSPEC 14:44
PROVIDERS: PCP Family Medicine; Visit Provider Obstetrics & Gynecology
DX: Z11.3 Encounter for screening for infections with a predominantly sexual mode of transmission (principal); Z12.4 Encounter for screening for malignant neoplasm of cervix
CPT/HCPCS: 87491; 87591; 88175; G0145

== ENCOUNTER 2022-06-25 13:05 | Emergency (ER) | payer MEDICAID, SELFPAY ==
[2022-06-25 13:06] VITALS: BP 119/86; PULSE 87; RESP 14; TEMP 36.1; O2SAT 100; BMI 19.5
--- NOTE | 2022-06-25 14:23 | CT_ITS ---
INDICATION: right flank pain EXAMINATION: CT Abdomen And Pelvis W/O Contrast Injection TECHNIQUE: Helically acquired images were obtained of the abdomen and pelvis without the use of IV contrast. A radiation dose optimization technique was used for this scan. Oral contrast: None. COMPARISON: None FINDINGS: Evaluation of the solid organs and vascular structures is limited without intravenous contrast. Visualized lung bases: Unremarkable Liver: Unremarkable Gallbladder: Unremarkable Spleen: Unremarkable Pancreas: Unremarkable Adrenal Glands: Unremarkable Kidneys: Unremarkable Vasculature: Unremarkable GI Tract: Unremarkable Lymphadenopathy: None Peritoneum: No ascites. Bladder: Unremarkable Reproductive organs: In the left adnexa, likely within the left ovary there is a thick-walled fluid collection with surrounding fat stranding. It measures approximately 4.6 x 4.6 cm. Bones/Soft tissues: No suspicious osseous or soft tissue lesions CT/Abdomen/Pelvis without Cont IMPRESSION: No hydronephrosis or renal/ureteral stones. 4.6 cm thick-walled fluid collection with surrounding inflammatory changes in the left ovary. This is concerning for possible tubo-ovarian abscess. Consider pelvic ultrasound for confirmation. Electronically Signed: Harvinder Ye MD at 16:40 EDT ,
--- NOTE | 2022-06-25 14:27 | EDS_ITS ---
HPI <XIOMY Galo - Last Filed: 06/25/22 18:30> History of Present Illness Chief Complaint: Flank Pain Narrative Narrative: 26-year-old female with past medical history of kidney stones, PCOS presents with right flank pain. She has had the pain intermittently for the last month but she attributed it to constipation. The pain became severe last night and this morning is radiating around to her right lower abdomen with nausea and dysuria. She also started her menstrual cycle today. She is established with urology and has required a stent before for stones. [facility] <XIOMY Galo - Last Filed: 06/25/22 18:30> [facility] Medical History (Updated 06/25/22 @ 18:26 by XIOMY Galo) History of PCOS Kidney stones Home Medications ferrous sulfate 325 mg (65 mg iron) tablet 325 mg PO BID anemia 10/01/18 [History Last Taken 10/12/18 18:00 1 tab] sertraline 50 mg tablet 50 mg PO DAILY 01/24/19 [History Last Taken Unknown] cetirizine 10 mg capsule 10 mg PO DAILY 02/01/19 [History Last Taken Unknown] fluticasone propionate 50 mcg/actuation nasal spray,suspension 1 spray NASAL BID ##1 02/01/19 [Rx Last Taken Unknown] cephalexin 500 mg capsule 500 mg PO Q12 #14 CAPSULES 06/25/22 [Rx Last Taken Unknown] Allergy/AdvReac Type Severity Reaction Status Date / Time cinnamon Allergy Swelling Verified 06/25/22 13:06 Social History Smoking Status: Former smoker ROS <XIOMY Galo - Last Filed: 06/25/22 18:30> ROS ED ROS Narrative Constitutional: Negative for fever, chills, malaise. CVS: Negative for chest pain. Respiratory: Negative for shortness of breath, cough. GI: Positive for nausea. Negative for abdominal pain, nausea, vomiting. : Positive for dysuria. Negative for hematuria or frequency. Skin: Negative for rash, abscess, or wound. EXAM <XIOMY Galo - Last Filed: 06/25/22 18:30> Physical Exam Narrative Exam Narrative: CONST: Patient sitting in no acute distress. EYES: Normal inspection. NECK: Normal inspection. RESP: No respiratory distress, CTAB. CVS: Regular rate and rhythm, no murmur, no gallop. ABD: Soft with tenderness in right lower quadrant greater than left, no guarding or rebound, nondistended. Back: Normal inspection, no CVA tenderness. SKIN: Color normal, no rash, warm, dry, intact. EXTREMITIES: Normal appearance, no pedal edema. NEURO: Oriented x4. PSYCH: Normal affect. Const Vital Signs: 06/25/22 13:06 06/25/22 15:09 06/25/22 16:49 Temperature 97 F L Temperature Source Temporal Pulse Rate 87 68 79 Respiratory Rate 14 16 18 Blood Pressure 119/86 H 116/81 H 114/68 Blood Pressure Mean 97 92 83 Pulse Ox 100 100 100 Oxygen Delivery Method Room Air Room Air <Dr. Lety Gipson DO - Last Filed: 06/28/22 21:31> Physical Exam Const Vital Signs: 06/25/22 13:06 06/25/22 15:09 06/25/22 16:49 Temperature 97 F L Temperature Source Temporal Pulse Rate 87 68 79 Respiratory Rate 14 16 18 Blood Pressure 119/86 H 116/81 H 114/68 Blood Pressure Mean 97 92 83 Pulse Ox 100 100 100 Oxygen Delivery Method Room Air Room Air MDM <XIOMY Galo - Last Filed: 06/25/22 18:30> [facility] Narrative Medical decision making narrative: Patient has right flank and abdominal pain. She appears well and nontoxic. Vital signs unremarkable. She is tender in the right lower quadrant with no peritoneal signs. CBC shows normal white count of 8.1, hemoglobin 12.5. BMP unremarkable. UA positive for UTI. test negative. She was treated with IV Rocephin and Toradol while CT scan was obtained. There is no kidney stone but there is a 4.6 cm fluid collection with inflammatory changes around the left ovary concerning for possible tubo-ovarian abscess. Most of her pain is in the right side but I ordered a transvaginal ultrasound and did a pelvic exam. She does have a small amount of blood in the vaginal vault since she started her menstrual cycle today. Cervix appears normal. She has left adnexal discomfort with internal exam but no fullness or cervical motion tenderness appreciated. Transvaginal ultrasound shows a 5.3 cm complex cyst in left ovary most likely a hemorrhagic cyst. This may be causing her some of her pain but most of it was in the right lower quadrant. She could have pain from the UTI. She has had intermittent flank pain for a month and with a normal white count here, normal vitals, and no flank tenderness I doubt this is pyelonephritis. She will be treated with Keflex. She was told to follow-up with her [employer] will need a repeat pelvic ultrasound in 6 to 12 weeks to document resolution of the ovarian cyst. She was agreeable with this plan and discharged in stable condition. Differential: Kidney stone, pyelonephritis, ovarian cyst Lab Data Attestation: I reviewed the patient's lab results. Labs: Laboratory Results - last 24 hr 06/25/22 06/25/22 06/25/22 15:08 15:08 15:20 WBC 8.1 RBC 4.12 L Hgb 12.5 Hct 37.9 MCV 92.0 MCH 30.3 MCHC 33.0 RDW Std Deviation 43.3 RDW Coeff of Viry 12.7 Plt Count 235 MPV 10.8 Immature Gran % (Auto) 0.200 Neut % (Auto) 68.4 Lymph % (Auto) 22.7 [place] % (Auto) 6.3 Eos % (Auto) 2.0 Baso % (Auto) 0.4 Absolute Neuts (auto) 5.5 Absolute Lymphs (auto) 1.83 Nucleated RBC % 0 Sodium 142 Potassium 3.5 Chloride 110 H Carbon Dioxide 25.0 Anion Gap 7 BUN 8 Creatinine 0.55 Estim Creat Clear Calc 128.98 Est GFR (MDRD) Af Amer 174 Est GFR (MDRD) Non-Af 144 BUN/Creatinine Ratio 14.6 Glucose 88 Calcium 8.9 Urine Color Red Urine Clarity Sl. Cloudy Urine pH 7.0 Ur Specific [place] 1.010 Urine Protein 100 H Urine Glucose (UA) Normal Urine Ketones Negative Urine Occult Blood 250 H Urine Nitrite Negative Urine Bilirubin Negative Urine Urobilinogen Normal Ur Leukocyte Esterase 500 H Urine RBC > 100 SEEN Urine WBC 10-25 SEEN Ur Squamous Epith Cells 0-5 SEEN Urine Bacteria 1+ Urine Mucus 0 SEEN Urine Test Negative Radiography Diagnostic Testing: Clinical Impression(s) from Imaging Studies Abdomen/Pelvis CT 06/25/22 14:23 IMPRESSION: No hydronephrosis or renal/ureteral stones. 4.6 cm thick-walled fluid collection with surrounding inflammatory changes in the left ovary. This is concerning for possible tubo-ovarian abscess. Consider pelvic ultrasound for confirmation. Electronically Signed: Harvinder Ye MD at 16:40 EDT , Transvaginal US 06/25/22 16:50 IMPRESSION: Polycystic ovarian syndrome. 5.3 cm complex cystic lesion in the left ovary most likely represents a hemorrhagic cyst. Recommend follow-up pelvic ultrasound in 6-12 weeks to document resolution. Electronically Signed: Harvinder Ye MD at 18:17 EDT , ED attending interpretation of CT abdomen/pelvis shows no obstructive renal stone. <Dr. Lety Gipson, DO - Last Filed: 06/28/22 21:31> [facility] Narrative Medical decision making narrative: Patient has right flank and abdominal pain. She appears well and nontoxic. Vital signs unremarkable. She is tender in the right lower quadrant with no peritoneal signs. CBC shows normal white count of 8.1, hemoglobin 12.5. BMP unremarkable. UA positive for UTI. test negative. She was treated with IV Rocephin and Toradol while CT scan was obtained. There is no kidney stone but there is a 4.6 cm fluid collection with inflammatory changes around the left ovary concerning for possible tubo-ovarian abscess. Most of her pain is in the right side but I ordered a transvaginal ultrasound and did a pelvic exam. She does have a small amount of blood in the vaginal vault since she started her menstrual cycle today. Cervix appears normal. She has left adnexal discomfort with internal exam but no fullness or cervical motion tenderness appreciated. Transvaginal ultrasound shows a 5.3 cm complex cyst in left ovary most likely a hemorrhagic cyst. This may be causing her some of her pain but most of it was in the right lower quadrant. She could have pain from the UTI. She has had intermittent flank pain for a month and with a normal white count here, normal vitals, and no flank tenderness I doubt this is pyelonephritis. She will be treated with Keflex. She was told to follow-up with her [employer] will need a repeat pelvic ultrasound in 6 to 12 weeks to document resolution of the o varian cyst. She was agreeable with this plan and discharged in stable condition. Differential: Kidney stone, pyelonephritis, ovarian cyst I have personally performed a face to face assessment of the patient and have reviewed the TREVOR Note. I performed a substantive portion of the visit including all aspects of the following. My haq findings include: History is Patient is evaluated for worsening flank pain as well as pelvic pain. Patient notes she had some mild pain for about a month but became worse last night. She is currently on her menstrual cycle. She does have a history of kidney stones and ovarian cyst. Patient is nauseous and does appear uncomfortable in the emergency room. Patient symptoms are treated in the emergency room. CT of the abdomen pelvis does not show a kidney stone but does show 4.6 cm fluid collection with inflammatory changes around the left ovary which could be concerning for possible tubo-ovarian abscess. Transvaginal ultrasound performed which is more consistent with ovarian cyst. Pelvic exam not consistent with PID or tubo-ovarian abscess. Patient will follow-up outpatient with her [employer]. Is agreeable this plan of care. Urinalysis is consistent with UTI and patient is started on antibiotics for this. I do not suspect pyelonephritis patient is afebrile with no leukocytosis. Other additions or changes: [None] Lab Data Labs: Laboratory Results - last 24 hr 06/25/22 06/25/22 06/25/22 15:08 15:08 15:20 WBC 8.1 RBC 4.12 L Hgb 12.5 Hct 37.9 MCV 92.0 MCH 30.3 MCHC 33.0 RDW Std Deviation 43.3 RDW Coeff of Viry 12.7 Plt Count 235 MPV 10.8 Immature Gran % (Auto) 0.200 Neut % (Auto) 68.4 Lymph % (Auto) 22.7 [place] % (Auto) 6.3 Eos % (Auto) 2.0 Baso % (Auto) 0.4 Absolute Neuts (auto) 5.5 Absolute Lymphs (auto) 1.83 Nucleated RBC % 0 Sodium 142 Potassium 3.5 Chloride 110 H Carbon Dioxide 25.0 Anion Gap 7 BUN 8 Creatinine 0.55 Estim Creat Clear Calc 128.98 Est GFR (MDRD) Af Amer 174 Est GFR (MDRD) Non-Af 144 BUN/Creatinine Ratio 14.6 Glucose 88 Calcium 8.9 Urine Color Red Urine Clarity Sl. Cloudy Urine pH 7.0 Ur Specific [place] 1.010 Urine Protein 100 H Urine Glucose (UA) Normal Urine Ketones Negative Urine Occult Blood 250 H Urine Nitrite Negative Urine Bilirubin Negative Urine Urobilinogen Normal Ur Leukocyte Esterase 500 H Urine RBC > 100 SEEN Urine WBC 10-25 SEEN Ur Squamous Epith Cells 0-5 SEEN Urine Bacteria 1+ Urine Mucus 0 SEEN Urine Test Negative Radiography Diagnostic Testing: Clinical Impression(s) from Imaging Studies Abdomen/Pelvis CT 06/25/22 14:23 IMPRESSION: No hydronephrosis or renal/ureteral stones. 4.6 cm thick-walled fluid collection with surrounding inflammatory changes in the left ovary. This is concerning for possible tubo-ovarian abscess. Consider pelvic ultrasound for confirmation. Electronically Signed: Harvinder Ye MD at 16:40 EDT , Transvaginal US 06/25/22 16:50 IMPRESSION: Polycystic ovarian syndrome. 5.3 cm complex cystic lesion in the left ovary most likely represents a hemorrhagic cyst. Recommend follow-up pelvic ultrasound in 6-12 weeks to document resolution. Electronically Signed: Harvinder Ye MD at 18:17 EDT , Discharge Plan Triage Chief Complaint: Flank Pain ED Midlevel Provider: Sydni Kruger ED Provider: Lety Gipson Dx/Rx/DC Orders Clinical Impression: UTI (urinary tract infection), Hemorrhagic cyst of left ovary Instructions: ED Ovarian Cyst, ED Cystitis Female Adult Prescriptions: New cephalexin 500 mg capsule 500 mg PO Q12 Qty: 14 0RF No Action ferrous sulfate 325 MG tablet 325 mg PO BID sertraline 50 MG tablet 50 mg PO DAILY cetirizine 10 MG capsule 10 mg PO DAILY fluticasone propionate 1 SPRAY spray,suspension 1 spray NASAL BID Qty: 1 0RF Rx Instructions: [place] 1 spray in each nostril twice daily Primary Care Provider: Dl Mccrary Referrals: Dl Mccrary MD [Primary Care Provider] - Activity Restrictions/Additional Instructions: I prescribed Keflex which is an antibiotic for UTI. You do have a large left ovarian hemorrhagic cyst. Please follow-up with your [employer]. You may need to repeat an ultrasound in 6 to 12 weeks to make sure that this is resolving. Disposition Disposition: Home, Self Care Discharge Date/Time: 06/25/22 18:44
[2022-06-25] MEDS: 0.9% Normal Saline 1,000 ML 999 ML IV (15:06)
[2022-06-25] MEDS: Ketorolac 15 MG/ML Vial IV (15:06)
[2022-06-25] MEDS: Ondansetron 4 MG/2 ML Vial IV ×2 (15:06→16:43)
[2022-06-25 15:09] VITALS: BP 116/81; PULSE 68; RESP 16; O2SAT 100
[2022-06-25 15:18] LABS: Absolute Lymphocyte Count 1.83 X10^3/uL (0.83-4.51); Absolute Neutrophil Count 5.5 X10^3/uL (2.0-7.7); Basophil# 0.03 X10^3/uL; Basophil% 0.4 % (0-1); Eosinophil# 0.16 X10^3/uL; Hematocrit 37.9 % (37-47); Hemoglobin 12.5 g/dL (12.0-15.0); Lymphocyte # 1.83 X10^3/ul (0.83-4.51); Lymphocyte % 22.7 % (19-41); Mean Corpuscular Hgb 30.3 pg (27.0-32.0); Mean Platelet Vol. 10.8 fl (6.2-12.0); Monocyte# 0.51 X10^3/uL; Monocyte% 6.3 % (0-10); NRBC Flagged by Analyzer 0 % (0-5); Neutrophil % 68.4 % (47-70); Platelet Count 235 K/mm3 (150-450); RBC Distribution Width CV 12.7 % (11.6-14.6); RBC Distribution Width SD 43.3 fl (35.1-43.9); Red Blood Count 4.12 M/mm3 (4.2-5.4); White Blood Count 8.1 K/mm3 (4.4-11.0)
[2022-06-25 15:27] LABS: Mucous, Urine 0 SEEN /hpf (<or=2+)
[2022-06-25 15:41] LABS: Color, Urine Red (Yellow); Glucose, Dipstick Normal (Normal); Ketone-Dipstick Negative (Negative); Leukocyte Esterase-Dipstick 500 /ul (Negative); Nitrite-Dipstick Negative (Negative); Occult Blood-Urine 250 /ul (Negative); Protein-Dipstick 100 mg/dl (Negative); Urine Bilirubin Dipstick Negative (Negative); Urine Clarity Sl. Cloudy (Clear); Urine Urobilinogen Normal (Normal)
[2022-06-25 15:44] LABS: Anion Gap 7 (5-15); BUN 8 mg/dL (7-18); BUN/Creat Ratio 14.6 RATIO (10-20); Calcium,Total 8.9 mg/dL (8.5-10.1); Chloride 110 mmol/L (98-107); Creatinine, Serum 0.55 mg/dL (0.55-1.02); EST Glomerular Filtration Rate 144 mL/min (>60); Est Glom Filt Rate - Afr Amer 174 mL/min (>60); Estimated Creatinine Clearance 128.98 ml/min; Glucose 88 mg/dL (74-106); Potassium 3.5 mmol/L (3.5-5.1); Sodium Level 142 mmol/L (136-145)
[2022-06-25 15:50] LABS: Red Blood Cells-Urine > 100 SEEN /hpf (0-5); White Blood Cells 10-25 SEEN /hpf (0-5)
[2022-06-25 15:52] LABS: Bacteria 1+ /hpf (None Seen); Internal QC Validated? YES +Cl - CLEAR BKGD; Pregnancy, Urine Negative Negative; Squamous Epithelial Cells - UA 0-5 SEEN /hpf (5-10)
[2022-06-25] MEDS: Morphine 4 MG/ML Syringe IV (16:43)
[2022-06-25] MEDS: Ceftriaxone 1 GM/50 ML BAG IV (16:45)
[2022-06-25 16:49] VITALS: BP 114/68; PULSE 79; RESP 18; O2SAT 100
--- NOTE | 2022-06-25 16:50 | US_ITS ---
INDICATION: abnormal left ovary on CT EXAMINATION: Ultrasound US Transvaginal Non-OB TECHNIQUE: Transvaginal (for optimal evaluation of the adnexa) pelvic ultrasound was performed. Grayscale, spectral waveform, and color flow Doppler evaluation of the adnexa. COMPARISON: None. FINDINGS: UTERUS: Anteverted. The uterus measures 9 x 5.8 x 4.3 cm. There is no uterine mass. The endometrial stripe measures 6 cm in AP diameter which is within normal limits. RIGHT OVARY: Measures 3 x 2.7 x 1.9 cm. Non-enlarged, normal echogenicity. There is normal arterial inflow and venous outflow present in the right ovary. There are greater than 20 follicles. LEFT OVARY: Measures 5.6 x 5.2 x 4.3 cm. Non-enlarged, normal echogenicity. There is normal arterial inflow and venous outflow present in the left ovary. There are greater than 20 follicles. There is a large 5.3 x 4.4 x 3.7 cm complex cystic lesion in the left ovary containing non-vascular weblike material. FREE FLUID: None. US/Transvaginal Non- IMPRESSION: Polycystic ovarian syndrome. 5.3 cm complex cystic lesion in the left ovary most likely represents a hemorrhagic cyst. Recommend follow-up pelvic ultrasound in 6-12 weeks to document resolution. Electronically Signed: Harvinder Ye MD at 18:17 EDT ,
[2022-06-25 18:40] VITALS: BP 114/70; PULSE 70; RESP 16; O2SAT 100
== END 2022-06-25 18:44 | disposition home or self-care (01) ==
PROVIDERS: Physician Assistant; Emergency Provider Emergency Medicine; PCP Family Medicine; Visit Provider Emergency Medicine
DX: N39.0 Urinary tract infection, site not specified (principal); N83.202 Unspecified ovarian cyst, left side; Z87.891 Personal history of nicotine dependence
CPT/HCPCS: 74176; 76830; 80048; 81001; 81025; 85025; 87086; 87088; 96365; 96366; 96375; 96376; 99282; J7030; A4216; J2405

== ENCOUNTER 2025-01-05 01:52 | Emergency (ER) | payer BC, SELFPAY ==
[2025-01-05 01:59] VITALS: BP 107/73; PULSE 99; RESP 12; TEMP 36.4; O2SAT 96; BMI 25.7
--- NOTE | 2025-01-05 02:19 | EX.ED.SAOD ---
HPI History of Present Illness Chief Complaint: ETOH Intox Informant: friend (x2) and EMS Narrative Narrative: 29-year-old female that was drinking alcohol with her friends sean, she was drinking shots of liquor. Her friend gave her the shots from a chisel grinder so she was not very suspicious of those as being an issue. However then another friend later gave her another shot, and then subsequently shortly thereafter she was following all over herself vomiting, and then decreased responsiveness to the point where her friends were concerned. They have been drinking alcohol to but not as much as she did. No falls or injuries witnessed. No hematemesis witnessed. [facility] Medical History History of PCOS Kidney stones Home Medications ?Medication ?Instructions ?Recorded ?Last Taken ?Type ferrous sulfate 325 mg (65 mg 325 mg PO BID anemia 10/01/18 10/12/18 18:00 History iron) tablet 1 tab sertraline 50 mg tablet 50 mg PO DAILY 01/24/19 Unknown History cetirizine 10 mg capsule 10 mg PO DAILY 02/01/19 Unknown History fluticasone propionate 50 1 spray NASAL BID ##1 02/01/19 Unknown Rx mcg/actuation nasal spray,suspension cephalexin 500 mg capsule 500 mg PO Q12 #14 CAPSULES 06/25/22 Unknown Rx Allergy/AdvReac Type Severity Reaction Status Date / Time cinnamon Allergy Swelling Verified 01/05/25 01:57 Social History Smoking Status: Former smoker ROS ROS ED Review of Systems ROS Unobtainable: due to mental status EXAM Physical Exam Const Vital Signs: 01/05/25 01:59 01/05/25 03:53 01/05/25 04:58 Temperature 97.6 F L Temperature Source Temporal Pulse Rate 99 71 83 Respiratory Rate 12 16 16 Blood Pressure 107/73 87/49 L 116/69 Blood Pressure Mean 84 61 84 Pulse Ox 96 97 99 Oxygen Delivery Method Room Air Room Air Room Air Positive well nourished and well developed General Appearance ED: well developed and NAD HEENT Reports moist mucous membranes normocephalic and atraumatic Eyes PERRL and EOMs intact bilaterally Neck full ROM and supple Resp normal respiratory effort and clear to auscultation bilaterally Cardio regular rate, regular rhythm and no murmurs GI non-tender and non-distended Auscultation: normoactive bowel sounds Palpation: soft Back/Spine no CVA tenderness General Back: other FROM Extremity normal to inspection General Extremety ED: Negative for edema, pulses abnormal or tenderness General Extremity: Negative for edema or pulses abnormal Neuro Neuro Narrative: Stuporous. Breathing easily in no distress. On initial exam GCS is basically 3. Skin no rashes or lesions noted and no wounds MDM MDM MDM Narrative Medical decision making narrative: We did some labs including alcohol level and drug screen we did urine catheterization to obtain this. Her alcohol is 224 which I think explains her lethargy for size, and her drug screen shows cocaine and THC. She was observed here for several hours. Her vital signs remained stable, she had no respiratory depression or hypoxemia or respiratory distress to suggest aspiration. About 5 hours later she was awake and easily arousable following commands, and conversive. She admits to doing cocaine, she understands that a better idea she does not plan on doing it anymore. I do not think that significant contributed to her decreased level of consciousness I think it was more likely how much alcohol she drank in a short period of time. She is drinking fluids and stable for discharge. Counseled on drug abuse. Lab Data Attestation: I reviewed the patient's lab results. Labs: Laboratory Results - last 24 hr 01/05/25 01/05/25 01/05/25 02:21 02:32 03:43 WBC 8.3 RBC 4.45 Hgb 12.8 Hct 40.7 MCV 91.5 MCH 28.8 MCHC 31.4 L RDW Std Deviation 46.3 H RDW Coeff of Viry 13.7 Plt Count 250 MPV 11.3 Immature Gran % (Auto) 0.200 Neut % (Auto) 70.6 H Lymph % (Auto) 24.0 [place] % (Auto) 4.1 Eos % (Auto) 0.6 Baso % (Auto) 0.5 Absolute Neuts (auto) 5.8 Absolute Lymphs (auto) 1.98 Nucleated RBC % 0 Urine Opiates Screen NEGATIVE U Buprenorphine Qual NEGATIVE Ur Oxycodone Screen NEGATIVE Urine Methadone Screen NEGATIVE Urine Fentanyl Screen NEGATIVE Ur Barbiturates Screen NEGATIVE Ur Phencyclidine Scrn NEGATIVE Ur Amphetamines Screen NEGATIVE U Benzodiazepines Scrn NEGATIVE Urine Cocaine Screen PRESUMPTIVE POSITIVE U Cannabinoids Screen PRESUMPTIVE POSITIVE Ethyl Alcohol 224.0 H POC Glucose 112 H Discharge Plan Triage Chief Complaint: ETOH Intox ED Provider: Brenden Cruz Dx/Rx/DC Orders Clinical Impression: Alcohol intoxication, Alcohol causing toxic effect, Polysubstance abuse Instructions: ED Drug Abuse, ED Alcohol Intoxication Prescriptions: No Action ferrous sulfate 325 MG tablet 325 mg PO BID sertraline 50 MG tablet 50 mg PO DAILY cetirizine 10 MG capsule 10 mg PO DAILY fluticasone propionate 1 SPRAY spray,suspension 1 spray NASAL BID Qty: 1 0RF Rx Instructions: [place] 1 spray in each nostril twice daily cephalexin 500 mg capsule 500 mg PO Q12 Qty: 14 0RF Primary Care Provider: Care Physician,No Primary Referrals: Dl Mccrary MD [Med Staff - [facility] [facility] [employer], Family Practice] Print Language: Portuguese Disposition Disposition: Home, Self Care
[2025-01-05] MEDS: 0.9% Normal Saline (1000mL) 1,000 ML 999 ML IV (02:26)
[2025-01-05 02:29] LABS: Hematocrit 40.7 % (37-47); Hemoglobin 12.8 g/dL (12.0-15.0); Immature Granulocytes Count 0.020 X10^3/uL (0.0-0.0); Mean Corp Hgb Conc 31.4 g/dL (32-36); Mean Corpuscular Volume 91.5 fL (81-99); Mean Platelet Vol. 11.3 fl (6.2-12.0); NRBC Flagged by Analyzer 0 % (0-5); Platelet Count 250 K/mm3 (150-450); RBC Distribution Width CV 13.7 % (11.6-14.6); RBC Distribution Width SD 46.3 fl (35.1-43.9); Red Blood Count 4.45 M/mm3 (4.2-5.4); White Blood Count 8.3 K/mm3 (4.4-11.0)
--- OUTSIDE RECORDS SUMMARY | 2025-01-05 02:41 | XMS RPT_ITS | CCD ---
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 and did a pelvic exam. She does have a small amount of blood in the vaginal vault since she started her menstrual cycle today. Cervix appears normal. She has left adnexal discomfort with internal exam but no fullness or cervical motion tenderness appreciated. Transvaginal ultrasound shows a 5.3 cm complex cyst in left ovary most likely a hemorrhagic cyst. This may be causing her some of her pain but most of it was in the right lower quadrant. She could have pain from the UTI. She has had intermittent flank pain for a month and with a normal white count here, normal vitals, and no flank tenderness I doubt this is pyelonephritis. She will be treated with Keflex. She was told to follow-up with her [employer] will need a repeat pelvic ultrasound in 6 to 12 weeks to document resolution of the ovarian cyst. She was agreeable with this plan and discharged in stable condition. Differential: Kidney stone, pyelonephritis, ovarian cyst Lab Data Atte (more content not included)... Normal [facility] Hematocrit Auto (Bld) [Volum e fraction]Ordered By: Sydni Kruger on 06-25-2022 Hematocrit (Bld) [Volume fraction] 37.9 % 37-47 [facility] Ketones Test strip Ql (U)Ord ered By: Sydni Kruger on 06-25-2022 Ketones Ql (U) Negative Negative [facility] - Chemistry and C hemistry - challengeOrdered By: Sydni Kruger on 06-25-2022 HCG ( test) Ql (U) Negative [facility] Comment on above: Very dilute urine sp ecimens, as indicated by a low specificgravity, may not contain public utilities sales representative levels of hCG. If is still suspected, a first morning urinespecimen should be collected 48 hours later and tested. CO2 [Moles/Vol] 25.0 mmol/L 21.0-32.0 [facility] Urea nitrogen/Creatinine [Mass ratio] 14.6 mg/mg 10-20 [facility] - Hematology and Cell countsOrdered By: Sydni Kruger on 06-25-2022 Erythrocyte distribution width (RBC) [Entitic vol] 43.3 fL 35.1-43.9 [facility] Erythrocyte distribution width (RBC) [Ratio] 12.7 % 11.6-14.6 [facility] Immature granulocytes/100 WBC (Bld) 0.200 % 0.0-0.9 [facility] Comment on above: IG% - Immature Granu locytes (promyelocytes, myelocytes and metamyelocytes) > 1% indicates that a LEFT SHIFT is Present. MCH (RBC) [Entitic mass] 30.3 pg 27.0-32.0 [facility] Nucleated RBC/100 WBC (Bld) [Ratio] 0 % 0-5 [facility] MCHC Auto (RBC) [Mass/Vol]Or dered By: Sydni Kruger on 06-25-2022 MCHC (RBC) [Mass/Vol] 33.0 g/dL 32-36 [facility] Mucus LM Ql (Urine sed)Order ed By: ySdni Kruger on 06-25-2022 Mucus Ql (Urine sed) 0 SEEN /hpf [facility] Nitrite Test strip Ql (U)Ord ered By: Sydni Kruger on 06-25-2022 Nitrite Ql (U) Negative Negative [facility] No Panel InformationOrdered By: Sydni Kruger on 06-25-2022 Estimated Creatinine Clearance Calc 128.98 ml/min [facility] Estimated GFR (MDRD) Amer 174 mL/min >60 [facility] Comment on above: GFR Calc Estimated GFR (MDRD) Non-Af Amer 144 mL/min >60 [facility] Comment on above: Non- GFR Calc Platelets bldOrdered By: Rosamaria Kruger on 06-25-2022 Platelets (Bld) [#/Vol] 235 10*3/uL 150-450 [facility] ,Urineon 06-25-2022 Beta HCG ( test) Ql (U) Negative Normal [facility] Comment on above: Order Comment: COLOR OF URINE MAY AFFECT DIPSTICK RESULTS. CLEAN CATCH Result Comment: Very dilute urine specimens, as indicated by a low specific gravity, may not contain public utilities sales representative levels of hCG. If is still suspected, a first morning urine specimen should be collected 48 hours later and tested. Performed By: #### L 400.0001, L400.7600 #### [facility] [address] [place], [address] Protein Test strip Ql (U)Ord ered By: Sydni Kruger on 06-25-2022 Protein Ql (U) 100 mg/dl Negative [facility] Serum or plasma calcium amira urement (mass/volume)Ordered By: Sydni Kruger on 06-25-2022 Calcium [Mass/Vol] 8.9 mg/dL 8.5-10.1 [facility] Serum or plasma creatinine m easurement (mass/volume)Ordered By: Sydni Kruger on 06-25-2022 Creatinine [Mass/Vol] 0.55 mg/dL 0.55-1.02 [facility] Comment on above: The validity of the calculated GFR & GFRAA in patients over 70 years has not been determined. Clinical correlation is essential. Serum or plasma urea nitroge n measurement (mass/volume)Ordered By: Sydni Kruger on 06-25-2022 Urea nitrogen [Mass/Vol] 8 mg/dL 7-18 [facility] Squamous epithelial cells de tection in urine sediment by light microscopyOrdered By: Sydni Kruger on 06-25-2022 Epithelial cells.squamous LM Ql (Urine sed) 0-5 SEEN /hpf 5-10 [facility] Thin prep Papanicolaou smear with manual screeningOrdered By: Sydni Kruger on 06-25-2022 Thin prep Papanicolaou smear with manual screening 7 5-15 [facility] Transvaginal Non-on 06-25-2022 Transvaginal Non- [facility] Imaging Services [address] [place] [id number] Transvaginal Non- MR#: [id number] Acct: [id number] Name: JAELYN RAMOS Rep #: [id number] : 1995 F 26 From: Harvinder villalta MD PCP: Dr. Dl Mccrary MD Status: [facility] ER Study: Transvaginal Non- Date of Exam: Exam# [id number] Ordering Dr: Sydni Kruger INDICATION: abnormal left ovary on CT EXAMINATION: Ultrasound US Transvaginal Non-OB TECHNIQUE: Transvaginal (for optimal evaluation of the adnexa) pelvic ultrasound was performed. Grayscale, spectral waveform, and color flow Doppler evaluation of the adnexa. COMPARISON: None. FINDINGS: UTERUS: Anteverted. The uterus measures 9 x 5.8 x 4.3 cm. There is no uterine mass. The endometrial stripe measures 6 cm in AP diameter which is within normal limits. RIGHT OVARY: Measures 3 x 2.7 x 1.9 cm. Non-enlarged, normal echogenicity. There is normal arterial inflow and venous outflow present in the right ovary. There are greater than 20 follicles. LEFT OVARY: Measures 5.6 x 5.2 x 4.3 cm. Non-enlarged, normal echogenicity. There is normal arterial inflow and venous outflow present in the left ovary. There are greater than 20 follicles. There is a large 5.3 x 4.4 x 3.7 cm complex cystic lesion in the left ovary containing non-vascular weblike material. FREE FLUID: None. US/Transvaginal Non- IMPRESSION: Polycystic ovarian syndrome. 5.3 cm complex cystic lesion in the left ovary most likely represents a hemorrhagic cyst. Recommend follow-up pelvic ultrasound in 6-12 weeks to document resolution. Electronically Signed: Harvinder Ye MD at 18:17 EDT , CC: XIOMY Kruger; Dr. 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 CLEAN CATCH Performed By: #### L 400.0001, L400.7600 #### [facility] [address] [place], [address] EPI,SQUAMOUS 0-5 SEEN Normal 5-10 [facility] Comment on above: Order Comment: COLOR OF URINE MAY AFFECT DIPSTICK RESULTS. CLEAN CATCH Performed By: #### L 400.0001, L400.7600 #### [facility] [address] [place], [address] RBC > 100 SEEN Normal 0-5 [facility] Comment on above: Order Comment: COLOR OF URINE MAY AFFECT DIPSTICK RESULTS. CLEAN CATCH Performed By: #### L 400.0001, L400.7600 #### [facility] [address] [place], [address] WBC 10-25 SEEN Normal 0-5 [facility] Comment on above: Order Comment: COLOR OF URINE MAY AFFECT DIPSTICK RESULTS. CLEAN CATCH Performed By: #### L 400.0001, L400.7600 #### [facility] [address] [place], [address] Mucus Ql (Urine sed) 0 SEEN Normal [facility] Comment on above: Order Comment: COLOR OF URINE MAY AFFECT DIPSTICK RESULTS. CLEAN CATCH Performed By: #### L 400.0001, L400.7600 #### [facility] [address] [place], [address] Urine blood detectionOrdered By: Sydni Kruger on 06-25-2022 RBC Ql (U) 250 /ul Negative [facility] RBC Ql (U) > 100 SEEN /hpf 0-5 [facility] Urine clarityOrdered By: Rosamaria Kruger on 06-25-2022 Clarity (U) Sl. Cloudy Clear [facility] Urine color determinationOrd ered By: Sydni Kruger on 06-25-2022 Color (U) Red Yellow [facility] Urine glucose detectionOrder ed By: Sydni Kruger on 06-25-2022 Glucose Ql (U) Normal mg/dl Normal [facility] Urine leukocyte esterase det ection by dipstickOrdered By: Sydni Kruger on 06-25-2022 Leukocyte esterase Test strip Ql (U) 500 /ul Negative [facility] Urine pHOrdered By: Sydni leong on 06-25-2022 pH (U) 7.0 [pH] 5.0 - 8.0 [facility] Urine sediment bacteria coun t by microscopy (number/high power field)Ordered By: Sydni Kruger on 06-25-2022 Bacteria LM.HPF (Urine sed) [#/Area] 1 /[HPF] None Seen [facility] Urine specific gravity measu rementOrdered By: Sydni Kruger on 06-25-2022 Specific gravity (U) [Rel density] 1.010 1.002-1.03 0 [facility] Urobilinogen Auto test strip Ql (U)Ordered By: Sydni Kruger on 06-25-2022 Urobilinogen Ql (U) Normal mg/dl Normal [facility] LABORATORYOrdered By: Daxa Simon on 02-12-2022 HCG ( test) Ql Negative (02/12/22 9:57 AM) Invalid Interpretation Code AO Manual Urine SS test (u) int Not detected Invalid Interpretation Code AO Manual Urine SS LABORATORYOrdered By: Rosalie Stevens on 01-25-2022 C. trachomatis DNA GAYATHRI+probe Ql (Unsp spec) Negative (01/25/22 1:45 PM) Invalid Interpretation Code Negative AH Auto Viro/Sero SS C. trachomatis DNA GAYATHRI+probe Ql (Unsp spec) C. trachomatis DNA not detected. Specimen is presumptive negative forC. trachomatis.A negative result does not preclude C. trachomatis infection becauseresults depend on adequate specimen collection, absence of inhibitors,and sufficient DNA to be detected. Invalid Interpretation Code See CT Interp N AH Auto Viro/Sero SS N. gonorrhoeae DNA GAYATHRI+probe Ql (Unsp spec) Negative (01/25/22 1:45 PM) Invalid Interpretation Code Negative AH Auto Viro/Sero SS N. gonorrhoeae DNA GAYATHRI+probe Ql (Unsp spec) N. gonorrhoeae DNA not detected. Specimen is presumptive negative forN. gonorrhoeae. A negative result does not preclude Neisseria gonorrhoeaeinfection because results depend on adequate specimen collection, absenceof inhibitors, and sufficient DNA to be detected. Invalid Interpretation Code See NG Interp N Auto Viro/Sero SS Laboratory - Specimen inform ationOrdered By: Rosalie Stevens on 01-25-2022 Specimen source Nom (Unsp spec) Cervix (01/25/22 1:45 PM) Invalid Interpretation Code Auto Viro/Sero SS LABORATORYOrdered By: Johana Bustamante on 01-20-2022 Appearance (U) Clear (01/20/22 12:54 AM) Invalid Interpretation Code Clear AO Auto Urine SS Bacteria LM.HPF (Urine sed) [#/Area] 1 /[HPF] Invalid Interpretation Code AO Auto Urine SS Basophil, Absolute 0.0 103/mcL Invalid Interpretation Code 0.0 - 0.2 10^3/mcL AO Workflow SS Basophils/100 WBC (Bld) 0.5 % Invalid Interpretation Code 0.0 - 2.5 % AO Workflow SS Bilirubin Ql (U) Negative (01/20/22 12:54 AM) Invalid Interpretation Code Negative AO Auto Urine SS Calcium [Mass/Vol] 9.1 mg/dL Invalid Interpretation Code 8.4 - 10.2 mg/dL AO ADM SS Chloride [Moles/Vol] 103 mmol/L Invalid Interpretation Code 98 - 107 mmol/L AO ADM SS CO2 [Moles/Vol] 28 mmol/L Invalid Interpretation Code 22 - 29 mmol/L AO ADM SS Color (U) Yellow (01/20/22 12:54 AM) Invalid Interpretation Code AO Auto Urine SS Creatinine [Mass/Vol] 0.68 mg/dL Invalid Interpretation Code 0.55 - 1.02 mg/dL AO ADM SS Electrolyte Balance 8.0 mEq/L Invalid Interpretation Code 4.0 - 15.0 mEq/L AO ADM SS Eosinophil, Absolute 0.2 103/mcL Invalid Interpretation Code 0.0 - 0.4 10^3/mcL AO Workflow SS Eosinophils/100 WBC (Bld) 3.3 % Invalid Interpretation Code 0.0 - 7.0 % AO Workflow SS Erythrocyte distribution width (RBC) [Ratio] 13.9 % Invalid Interpretation Code 11.5 - 14.5 % AO Workflow SS Glucose [Mass/Vol] 89 mg/dL Invalid Interpretation Code 70 - 105 mg/dL AO ADM SS Glucose Test strip (U) [Mass/Vol] Negative Invalid Interpretation Code Negativemg /dL AO Auto Urine SS HCG ( test) Ql Negative (01/20/22 12:54 AM) Invalid Interpretation Code AO Manual Urine SS Hematocrit (Bld) [Volume fraction] 36.4 % Invalid Interpretation Code 37.0 - 47.0 % AO Workflow SS Hemoglobin (Bld) [Mass/Vol] 12.3 G/dL Invalid Interpretation Code 12.0 - 16.0 G/dL AO Workflow SS Hemoglobin Auto test strip (U) [Mass/Vol] Trace *ABN* (01/20/22 12:54 AM) Invalid Interpretation Code Negative AO Auto Urine SS Ketones Ql (U) Negative Invalid Interpretation Code Negativemg /dL AO Auto Urine SS Lymphocyte, Absolute 1.4 103/mcL Invalid Interpretation Code 0.8 - 3.9 10^3/mcL AO Workflow SS Lymphocytes/100 WBC (Bld) 18.0 % Invalid Interpretation Code 10.0 - 50.0 % AO Workflow SS MCH (RBC) [Entitic mass] 29.7 pg Invalid Interpretation Code 27.0 - 31.2 pg AO Workflow SS MCHC 33.9 G/dL Invalid Interpretation Code 33.0 - 37.0 G/dL AO Workflow SS MCV (RBC) [Entitic vol] 87.6 fL Invalid Interpretation Code 80.0 - 94.0 fL AO Workflow SS Monocyte distribution width Auto (Bld) [Entitic vol] 21.35 Invalid Interpretation Code 0.00 - 20.00 AO Workflow SS Comment on above: Result Comment: For adults in ED, MDW>20.0 may be associated with a higher risk of sepsis during the first 12hrs of hospital admission Monocyte, Absolute 0.7 103/mcL Invalid Interpretation Code 0.2 - 1.0 10^3/mcL AO Workflow SS Monocytes/100 WBC (Bld) 9.8 % Invalid Interpretation Code 1.7 - 13.0 % AO Workflow SS Neutrophil, Absolute 5.2 103/mcL Invalid Interpretation Code 2.9 - 6.2 10^3/mcL AO Workflow SS Neutrophils/100 WBC (Bld) 68.4 % Invalid Interpretation Code 37.0 - 80.0 % AO Workflow SS Platelet mean volume (Bld) [Entitic vol] 8.9 fL Invalid Interpretation Code 7.4 - 10.4 fL AO Workflow SS Platelets (Bld) [#/Vol] 214 103/mcL Invalid Interpretation Code 130 - 400 10^3/mcL AO Workflow SS Potassium [Moles/Vol] 4.2 mmol/L Invalid Interpretation Code 3.5 - 5.1 mmol/L AO ADM SS test (u) int Not detected Invalid Interpretation Code AO Manual Urine SS RBC (Bld) [#/Vol] 4.15 106/mcL Invalid Interpretation Code 4.20 - 5.40 10^6/mcL AO Workflow SS Sodium [Moles/Vol] 139 mmol/L Invalid Interpretation Code 136 - 145 mmol/L AO ADM SS UA Leuk Est Trace *ABN* (01/20/22 12:54 AM) Invalid Interpretation Code Negative AO Auto Urine SS UA Nitrite Negative (01/20/22 12:54 AM) Invalid Interpretation Code Negative AO Auto Urine SS UA pH 8.5 *ABN* (01/20/22 12:54 AM) Invalid Interpretation Code 5.0 - 8.0 AO Auto Urine SS UA Protein Trace mg/dL Invalid Interpretation Code Negativemg /dL AO Auto Urine SS UA RBC 0-5 /HPF Invalid Interpretation Code None Seen/HPF AO Auto Urine SS UA Spec Grav 1.020 (01/20/22 12:54 AM) Invalid Interpretation Code 1.015-1.02 5 AO Auto Urine SS UA Specimen Type Clean Catch (01/20/22 12:54 AM) Invalid Interpretation Code AO Auto Urine SS UA Squam Epithelial 5-10 /HPF Invalid Interpretation Code None Seen/HPF AO Auto Urine SS UA Urobilinogen 1.0 E.U./dL Invalid Interpretation Code 0.2-1.0E.U ./dL AO Auto Urine SS Urea nitrogen [Mass/Vol] 12 mg/dL Invalid Interpretation Code 7 - 18 mg/dL AO ADM SS Urea nitrogen/Creatinine [Mass ratio] 18 ratio Invalid Interpretation Code 7 - 27 ratio AO ADM SS WBC (Bld) [#/Vol] 7.6 103/mcL Invalid Interpretation Code 4.6 - 10.8 10^3/mcL AO Workflow SS WBC LM.HPF (Urine sed) [#/Area] 0-5 /HPF Invalid Interpretation Code None Seen/HPF AO Auto Urine SS LABORATORYOrdered By: SYSTEM SYSTEM on 01-20-2022 GFR 129 ml/min/1.73sqm Invalid Interpretation Code AO Chemistry S GFR Non- 106 ml/min/1.73sqm Invalid Interpretation Code AO Chemistry S CBC with Auto Differentialon 07-20-2021 Absolute Baso # 0.1 10*3/uL 0.0 - 0.2 10*3/uL [facility] Absolute Neut # 3.5 10*3/uL 1.8 - 7.0 10*3/uL [facility] Basophils/100 WBC (Bld) 1.0 % 0.0 - 2.0 % [facility] Eosinophils (Bld) [#/Vol] 0.4 10*3/uL 0.0 - 0.5 10*3/uL [facility] Eosinophils/100 WBC (Bld) 6.5 % High 1.0 - 6.0 % [facility] Granulocytes/100 WBC (Bld) 60.2 % 40.0 - 80.0 % [facility] Hematocrit (Bld) [Volume fraction] 39.1 % 35.0 - 47.0 % [facility] Hemoglobin.gastrointe stinal spec 1 Ql (Stl) 13.1 g/dL 11.7 - 16.0 g/dL [facility] Interpretation and review of laboratory results Abnormal [facility] Lymphocytes (Bld) [#/Vol] 1.4 10*3/uL 1.0 - 4.3 10*3/uL [facility] Lymphocytes/100 WBC (Bld) 24.3 % 20.0 - 40.0 % [facility] MCH (RBC) [Entitic mass] 29.3 pg 26.0 - 34.0 pg [facility] MCHC (RBC) [Mass/Vol] 33.6 % 32.0 - 36.0 % [facility] MCV (RBC) [Entitic vol] 87.3 fL 79.0 - 98.0 fL [facility] Monocytes (Bld) [#/Vol] 0.5 10*3/uL 0.0 - 0.8 10*3/uL [facility] Monocytes/100 WBC (Bld) 8.0 % 2.0 - 10.0 % [facility] Platelet distribution width (Bld) [Ratio] 13.8 % 11.5 - 14.5 % [facility] Platelet mean volume (Bld) [Entitic vol] 8.9 fL 7.4 - 10.4 fL [facility] Platelets (Bld) [#/Vol] 248 10*3/uL 140 - 440 10*3/uL [facility] RBC (Bld) [#/Vol] 4.48 10*6/uL 3.80 - 5.20 10*6/uL [facility] WBC (Bld) [#/Vol] 5.9 10*3/uL 3.6 - 10.7 10*3/uL [facility] Test Performed by [facility], [address] , [place], [place] [address] [facility] Complete Urinalysison 2021 Bacteria Few (1-5) Abnormal Negative [facility] Comment on above: Result Comment: . Performed By: #### H CGALFONSO, CUA2 #### [facility] [address] [place] [address] RBC, Urine 3 - 5 Abnormal 0-2 [facility] Comment on above: Result Comment: . Performed By: #### H CGALFONSO, CUA2 #### [facility] [address] [place] [address] Squamous Epithelial 6 - 10 Abnormal 3-5 [facility] Comment on above: Result Comment: . Performed By: #### H CGALFONSO, CUA2 #### [facility] [address] [place] [address] VOLUME, URINE 8-12 ml Normal [facility] Comment on above: Result Comment: . Performed By: #### H CGUR, CUA2 #### [facility] [address] [place] [address] WBC, Urine 0 - 2 Normal 0-5 [facility] Comment on above: Result Comment: . Performed By: #### H CGUR, CUA2 #### [facility] [address] [place] [address] Appearance (U) Clear Normal Clear [facility] Comment on above: Result Comment: . Performed By: #### H CGUR, CUA2 #### [facility] [address] [facility] [place] [address] Bilirubin,Urine Negative Normal Negative [facility] Comment on above: Result Comment: . Performed By: #### H CGUR, CUA2 #### [facility] [address] [facility] [place] [address] Color (U) LIGHT YELLOW Normal Lt. Yellow [facility] Comment on above: Result Comment: . Performed By: #### H CGUR, CUA2 #### [facility] [address] [place] [address] Glucose Ql (U) Normal Normal Normal (<70) [facility] Comment on above: Result Comment: . Performed By: #### H CGUR, CUA2 #### [facility] [address] [place] [address] Ketone,Urine Negative Normal Negative [facility] Comment on above: Result Comment: . Performed By: #### H CGUR, CUA2 #### [facility] [address] [place] [address] Leukocytes,Urine Negative Normal Negative [facility] Comment on above: Result Comment: . Performed By: #### H CGUR, CUA2 #### [facility] [address] [place] [address] Nitrites,Urine Negative Normal Negative [facility] Comment on above: Result Comment: . Performed By: #### H CGUR, CUA2 #### [facility] [address] [place] [address] Occult Blood,Urine 0.03 mg/dL Abnormal Negative [facility] Comment on above: Result Comment: . Performed By: #### H CGUR, CUA2 #### [facility] [address] [place] [address] pH,Urine 7.0 Normal 5.0-8.0 [facility] Comment on above: Result Comment: . Performed By: #### H CGUR, CUA2 #### [facility] [address] [place] [address] Specific [place],Urine 1.013 Normal 1.005 - 1.030 [facility] Comment on above: Result Comment: . Performed By: #### H JERRY, CUA2 #### [facility] [address] [place] [address] Total Protein,Urine Negative Normal Negative [facility] Comment on above: Result Comment: . Performed By: #### H JERRY, CUA2 #### [facility] [address] [place] [address] Urobilinogen,Urine Normal Normal Normal (0-1) [facility] Comment on above: Result Comment: . Performed By: #### H JERRY, CUA2 #### [facility] [address] [place] [address] HCG,Urine Qualon 07-20-2021 Beta HCG ( test) Ql (U) Negative Normal Negative [facility] Comment on above: Result Comment: Plea se note: Very dilute urine specimens, as indicated by a low specific gravity, may not contain public utilities sales representative levels of hCG. If is still suspected, a first morning urine specimen should be collected 48 hours later and tested. is the most common reason for HCG in urine, although choriocarcinoma, hydatidiform mole, and certain nontropho- blastic malignancies also result in detectable urinary HCG levels. Sensitivity = 20mIU/mL. Performed By: #### H JERRY CUGeorgiana #### [facility] [address] [place] [address] Hemogram w/ Autodiffon 07-20 Abs Baso Cnt 0.1 10*3/uL Normal 0.0-0.2 [facility] Comment on above: Performed By: #### H EMDF #### [facility] [address] [place] [address] Abs Neutrophile Cnt 3.5 10*3/uL Normal 1.8-7.0 [facility] Comment on above: Performed By: #### H EMDF #### [facility] [address] [facility] [place] [address] Basophils/100 WBC (Bld) 1.0 % Normal 0.0-2.0 [facility] Comment on above: Performed By: #### H EMDF #### [facility] [address] [place] [address] Eosinophils (Bld) [#/Vol] 0.4 10*3/uL Normal 0.0-0.5 [facility] Comment on above: Performed By: #### H EMDF #### [facility] [address] [place] [address] Eosinophils/100 WBC (Bld) 6.5 % High 1.0-6.0 [facility] Comment on above: Performed By: #### H EMDF #### [facility] [address] [place] [address] Erythrocyte distribution width (RBC) [Ratio] 13.8 % Normal 11.5-14.5 [facility] Comment on above: Performed By: #### H EMDF #### [facility] [address] [place] [address] Granulocytes/100 WBC (Bld) 60.2 % Normal 40.0-80.0 [facility] Comment on above: Performed By: #### H EMDF #### [facility] [address] [place] [address] Hematocrit (Bld) [Volume fraction] 39.1 % Normal 35.0-47.0 [facility] Comment on above: Performed By: #### H EMDF #### [facility] [address] [place] [address] Hemoglobin (Bld) [Mass/Vol] 13.1 g/dL Normal 11.7-16.0 [facility] Comment on above: Performed By: #### H EMDF #### [facility] [address] [place] [address] Lymphocytes (Bld) [#/Vol] 1.4 10*3/uL Normal 1.0-4.3 [facility] Comment on above: Performed By: #### H EMDF #### [facility] [address] [place] [address] Lymphocytes/100 WBC (Bld) 24.3 % Normal 20.0-40.0 [facility] Comment on above: Performed By: #### H EMDF #### [facility] [address] [place] [address] MCH (RBC) [Entitic mass] 29.3 pg Normal 26.0-34.0 [facility] Comment on above: Performed By: #### H EMDF #### [facility] [address] [place] [address] MCHC 33.6 % Normal 32.0-36.0 [facility] Comment on above: Performed By: #### H EMDF #### [facility] [address] [place] [address] MCV (RBC) [Entitic vol] 87.3 fL Normal 79.0-98.0 [facility] Comment on above: Performed By: #### H EMDF #### [facility] [address] [place] [address] Monocytes (Bld) [#/Vol] 0.5 10*3/uL Normal 0.0-0.8 [facility] Comment on above: Performed By: #### H EMDF #### [facility] [address] [place] [address] Monocytes/100 WBC (Bld) 8.0 % Normal 2.0-10.0 [facility] Comment on above: Performed By: #### H EMDF #### [facility] [address] [place] [address] Platelet mean volume (Bld) [Entitic vol] 8.9 fL Normal 7.4-10.4 [facility] Comment on above: Performed By: #### H EMDF #### [facility] [address] [place] [address] Platelets (Bld) [#/Vol] 248 10*3/uL Normal 140-440 [facility] Comment on above: Performed By: #### H EMDF #### [facility] [address] [place] [address] RBC (Bld) [#/Vol] 4.48 10*6/uL Normal 3.80-5.20 [facility] Comment on above: Performed By: #### H EMDF #### [facility] [address] [place] [address] WBC (Bld) [#/Vol] 5.9 10*3/uL Normal 3.6-10.7 [facility] Comment on above: Performed By: #### H EMDF #### [facility] [address] [place] [address] , Urineon 2 Beta HCG ( test) Ql (U) Negative Negative NA [facility] Comment on above: Please note: Very di lute urine specimens, as indicated by a low specific gravity, may not contain public utilities sales representative levels of hCG. If is still suspected, a first morning urine specimen should be collected 48 hours later and tested. is the most common reason for HCG in urine, although choriocarcinoma, hydatidiform mole, and certain nontropho- blastic malignancies also result in detectable urinary HCG levels. Sensitivity = 20mIU/mL. Test Performed by [facility], [address] , [place], [place] [id number] [place] [address] LAB [facility] US NON OB TRANSVAGINALon Patient Name: JAELYN RAMOS Ultrasound ACCESSION EXAM DATE/TIME PROCEDURE ORDERING PROVIDER [id number] 07/20/2021 18:01 EDT US Transvaginal MD LIANNA, EDISON Hendrickson CPT code 46809 Reason For Exam (US Transvaginal) Patient seen last week with ovarian cyst on the right. Negative , now having increasing pain, evaluate pelvic. Report Examination: Pelvic ultrasound Clinical Indication: Possible ovarian cyst Comparison: None Findings: Multiplanar grayscale and vascular Doppler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 redness around your IV site that gets worse. Get help right away if: You have difficulty breathing. You have chest pain. You have blood in your urine or stool, or you vomit blood. Summary After the procedure, it is common to have a sore throat or nausea. It is also common to feel tired. Have a responsible adult stay with you for the first 24 hours after general anesthesia. It is important to have someone help care for you until you are awake and alert. When you feel hungry, start by eating small amounts of foods that are soft and easy to digest (bland), such as toast. Gradually return to your regular diet. Drink enough fluid to keep your urine pale yellow. Return to your normal activities as told by your health care provider. Ask your health care provider what activities are safe for you. This information is not intended to replace advice given to you by your health care provider. Make sure you discuss any questions you have with your health care provider. Document Released: 06/27/2001 Document Revised: 03/24/2018 Document Reviewed: 11/04/2017 [employer] Patient Education 2020 [employer]. 02/11/2022 12:58:06 8- Post Op DISPENSARY TECHNICIAN Surgery (03/2020) (CUSTOM) What to Do After Your Gynecology Surgery This sheet will give you general information on what to do when you are home after surgery. However, you should always follow any specific instructions given to you by your surgeon. Pain Medication Please follow the directions on the label of your medication and use your discharge medication list provided by the hospital. Do not take this medication on an empty stomach. This may cause a stomachache. Use a stool softener or gentle laxative (milk of magnesia) if needed. Constipation is not uncommon while taking oral pain medication. Use less of any narcotic pain medication as soon as your pain allows. You may take kwcp-blw-jeyxfnq pain medication if you no longer need your prescribed pain medication. Joot-pfr-pvmaesj pain medications are Tylenol (acetaminophen) or Advil (ibuprofen). Do not take Tylenol if you are still taking [place] or Percocet. They are the same type of medication. Too much acetaminophen can hurt your liver. Activity It is OK to use the stairs, but try to avoid them or take less trips right after surgery. After surgery, you may feel tired. Rest is important for healing. Slowly increase your activity level by walking and doing normal activities as you feel comfortable. Follow surgeon instructions on driving. You may not be able to drive for one to six weeks depending on what surgery and incisions you have. Do not drive while taking narcotic pain medication. They should be out of your system for 24 hours. Diet Eating smaller meals instead of three large meals is good. This may help with your appetite and nutrition. Good nutrition will help you heal. Follow diet instructions that you were taught after surgery. Infection Prevention Washing your hands is one of the best ways to prevent infection. Always wash your hands before and after touching your incision or dressing. Hands carry germs that can cause infections. Try not to touch your incision. Keep the Incision Clean Wear clean, loose-fitting clothes to prevent clothes from rubbing on the incision. Put clean sheets on your bed when you get home. Do not let other people or animals touch the incision. Showering You may start to shower 24 hours after your surgery. Use a clean washcloth and towel on your incision before you use it on any other area of your body. Adjust the shower spray to gentle and use warm water. Gently wash over your incision using antibacterial soap and water and pat it dry. Do not rub the incision. Do not soak or submerge in the bathtub or hot tub until your surgeon says it is OK. Wound Care When you go home, you may leave your incision(s) open to the air. Your incision(s) may be closed with sutures or beatriz. If incision is closed with sutures under the skin, you do not need to have these removed as they will dissolve on their own. If incision is closed with beatriz, the beatriz will need to be removed. If your incision is horizontal (sideways), they need to be removed within three to seven days. If your incision is vertical (up and down), they need to be removed within 10 14 days. If you have thin white tape strips (Steri-Strips) over your incision, keep them dry. Do not remove them unless they begin curling up at the sides and are almost falling off or have been in place for seven days. If your incision begins coming apart, has drainage (thick, foul smelling, white, yellow, green, pink or red) with redness around the incision and feels warm to touch, call your surgeon. You may have an infection. Vaginal Care You may have drainage after surgery. Normal colors are watery, brown-black discharge. Vaginal spotting and bleeding are normal. However, if you are soaking two pads in one hour, that is not normal. Call your surgeon. No tampons or douching. NO SEXUAL INTERCOURSE FOR 2 WEEKS. Call Your Doctor If: Your pain is not controlled by pain medication. You have a fever of 100.4 degrees or higher. You have a lot of bleeding from the incision or a lot of vaginal bleeding (more than two pads per hour). You have bad stomach pain or you start throwing up. If you are unable to reach your doctor, go to the hospital. Follow Up If a follow-up appointment has not been made, please call your surgeon s office within a day. Let the office know if you have beatriz and they will schedule them to be removed. Contact your surgeon for any specific problems or questions that you may have. Follow Up Care 02/08/2022 14:35:37 With:JAELYN GÓMEZ Address: [address] [place] [phone] Business (1) When:Within 2 Week(s) [facility] 02-12-2022 Summary of episode note Discharge Instructions Thank you for allowing [facility] to assist you with your healthcare needs. The following is important discharge information regarding your hospital visit. Your Care Team AVERY WEATHERS DO Your Diagnosis Chronic pelvic pain in female Postoperative pain What to do next Follow Up Appointments Follow Up with JAELYN GÓMEZ When In 2 weeks Where: [address] [place] [phone] Business (1) The Following Activity and Diet Have Been Ordered for You Discharge Activity - Ordered -- Lifting Restricted less than 10 pounds, 02/12/22 12:25:00 EST Discharge Driving Restrictions - Ordered -- No driving until pain-free, 02/12/22 12:25:00 EST Discharge Return to Work, School, or Sports (Discharge Return to status) - Ordered -- within 2 weeks, May return to: work, 02/12/22 12:25:00 EST Discharge Diet - Ordered -- Follow the post-operative/post-procedure diet instructions provided by your physician's office., 02/12/22 12:25:00 EST Allergies Cinnamon (Facial swelling) Medications Please ask your primary doctor or pharmacist before taking any other medication not listed, including over the counter drugs, herbal medications, vitamins and or supplements as they may interact with your home medications. What How Much When Why Instructions Last Dose New acetaminophen (Tylenol Extra Strength 500 mg oral tablet) 1 tab(s) by mouth Every 4 hours Duration: 14 Days Refills: 1 Pickup at [facility] #[id number] New acetaminophen-oxyCODONE (Percocet 5 mg-325 mg oral tablet) 1 tab(s) by mouth Every 4 hours as needed for for pain Postoperative pain Duration: 7 Days Pickup at [facility] #[id number] New doxycycline (doxycycline hyclate 100 mg oral capsule) 1 cap by mouth Two (2) times a day Duration: 14 Days Pickup at [facility] #[id number] New metroNIDAZOLE (metroNIDAZOLE 500 mg oral tablet) 1 tab(s) by mouth Every 12 hours Duration: 14 Days Pickup at [facility] #[id number] New ondansetron (Zofran 4 mg oral tablet) 1 tab(s) by mouth Every 6 hours as needed for Nausea/Vomiting Duration: 14 Days Pickup at [facility] #[id number] Changed ibuprofen (ibuprofen 800 mg oral tablet) 1 tab(s) by mouth Every 8 hours Duration: 14 Days Pickup at [facility] #[id number] Pharmacy Information [facility] #[id number]: [address], [place] [phone] What How Much When Why Comments Stop Taking naproxen (naproxen 500 mg oral tablet) 1 tab(s) by mouth Two (2) times a day as needed for as needed for pain Ovarian cyst Please take this list to your next doctor s visit. Bring all medications you take, including over the counter medications, herbals and other supplements with you to your doctor s visit. Patients and families are reminded to discard old lists and to update any records with all medication providers or retail pharmacies. Education Materials Diagnostic Laparoscopy, Care After This sheet gives you information about how to care for yourself after your procedure. Your health care provider may also give you more specific instructions. If you have problems or questions, contact your health care provider. What can I expect after the procedure? After the procedure, it is common to have: Mild discomfort in the abdomen. Sore throat. Women who have laparoscopy with pelvic examination may have mild cramping and fluid coming from the vagina for a few days after the procedure. Follow these instructions at home: Medicines Take wecp-rsg-vpgupiw and prescription medicines only as told by your health care provider. If you were prescribed an antibiotic medicine, take it as told by your health care provider. Do not stop taking the antibiotic even if you start to feel better. Driving Do not drive for 24 hours if you were given a medicine to help you relax (sedative) during your procedure. Do not drive or use heavy machinery while taking prescription pain medicine. Bathing Do not take baths, swim, or use a hot tub until your health care provider approves. You may take showers. Incision care Follow instructions from your health care provider about how to take care of your incisions. Make sure you: ? Wash your hands with soap and water before you change your bandage (dressing). If soap and water are not available, use hand political geographer. ? Change your dressing as told by your health care provider. ? Leave stitches (sutures), skin glue, or adhesive strips in place. These skin closures may need to stay in place for 2 weeks or longer. If adhesive strip edges start to loosen and curl up, you may trim the loose edges. Do not remove adhesive strips completely unless your health care provider tells you to do that. Check your incision areas every day for signs of infection. Check for: ? Redness, swelling, or pain. ? Fluid or blood. ? Warmth. ? Pus or a bad smell. Activity Return to your normal activities as told by your health care provider. Ask your health care provider what activities are safe for you. Do not lift anything that is heavier than 10 lb (4.5 kg), or the limit that you are told, until your health care provider says that it is safe. General instructions To prevent or treat constipation while you are taking prescription pain medicine, your health care provider may recommend that you: ? Drink enough fluid to keep your urine pale yellow. ? Take hcnf-kec-prlpqkn or prescription medicines. ? Eat foods that are high in fiber, such as fresh fruits and vegetables, whole grains, and beans. ? Limit foods that are high in fat and processed sugars, such as fried and sweet foods. Do not use any products that contain nicotine or tobacco, such as cigarettes and e-cigarettes. If you need help quitting, ask your health care provider. Keep all follow-up visits as told by your health care provider. This is important. Contact a health care provider if: You develop shoulder pain. You feel lightheaded or faint. You are unable to pass gas or have a bowel movement. You feel nauseous or you vomit. You develop a rash. You have redness, swelling, or pain around any incision. You have fluid or blood coming from any incision. Any incision feels warm to the touch. You have pus or a bad smell coming from any incision. You have a fever or chills. Get help right away if: You have severe pain. You have vomiting that does not go away. You have heavy bleeding from the vagina. Any incision opens. You have trouble breathing. You have chest pain. Summary After the procedure, it is common to have mild discomfort in the abdomen and a sore throat. Check your incision areas every day for signs of infection. Return to your normal activities as told by your health care provider. Ask your health care provider what activities are safe for you. This information is not intended to replace advice given to you by your health care provider. Make sure you discuss any questions you have with your health care provider. Document Released: 03/01/2016 Document Revised: 03/03/2018 Document Reviewed: 09/14/2017 [employer] Patient Education 2020 [employer] Nausea and Vomiting, Adult Nausea is the feeling that you have an upset stomach or that you are about to vomit. Vomiting is when stomach contents are thrown up and out of the mouth as a result of nausea. Vomiting can make you feel weak and cause you to become dehydrated. Dehydration can make you feel tired and thirsty, cause you to have a dry mouth, and decrease how often you urinate. Older adults and people with other diseases or a weak disease-fighting system (immune system) are at higher risk for dehydration. It is important to treat your nausea and vomiting as told by your health care provider. Follow these instructions at home: Watch your symptoms for any changes. Tell your health care provider about them. Follow these instructions to care for yourself at home. Eating and drinking Take an oral rehydration solution (ORS). This is a drink that is sold at pharmacies and retail stores. Drink clear fluids slowly and in small amounts as you are able. Clear fluids include water, ice chips, low-calorie sports drinks, and fruit juice that has water added (diluted fruit juice). Eat bland, broa-ok-dtbcqz foods in small amounts as you are able. These foods include bananas, applesauce, rice, lean meats, toast, and crackers. Avoid fluids that contain a lot of sugar or caffeine, such as energy drinks, sports drinks, and soda. Avoid alcohol. Avoid spicy or fatty foods. General instructions Take xtik-mot-bdzhfpq and prescription medicines only as told by your health care provider. Drink enough fluid to keep your urine pale yellow. Wash your hands often using soap and water. If soap and water are not available, use hand political geographer. Make sure that all people in your household wash their hands well and often. Rest at home while you recover. Watch your condition for any changes. Breathe slowly and deeply when you feel nauseated. Keep all follow-up visits as told by your health care provider. This is important. Contact a health care provider if: Your symptoms get worse. You have new symptoms. You have a fever. You cannot drink fluids without vomiting. Your nausea does not go away after 2 days. You feel light-headed or dizzy. You have a headache. You have muscle cramps. You have a rash. You have pain while urinating. Get help right away if: You have pain in your chest, neck, arm, or jaw. You feel extremely weak or you faint. You have persistent vomiting. You have vomit that is bright red or looks like black coffee grounds. You have bloody or black stools or stools that look like tar. You have a severe headache, a stiff neck, or both. You have severe pain, cramping, or bloating in your abdomen. You have difficulty breathing, or you are breathing very quickly. Your heart is beating very quickly. Your skin feels cold and clammy. You feel confused. You have signs of dehydration, such as: ? Dark urine, very little urine, or no urine. ? Cracked lips. ? Dry mouth. ? Sunken eyes. ? Sleepiness. ? Weakness. These symptoms may represent a serious problem that is an emergency. Do not wait to see if the symptoms will go away. Get medical help right away. Call your local emergency services (911 in the [place] Do not drive yourself to the hospital. Summary Nausea is the feeling that you have an upset stomach or that you are about to vomit. As nausea gets worse, it can lead to vomiting. Vomiting can make you feel weak and cause you to become dehydrated. Follow instructions from your health care provider about eating and drinking to prevent dehydration. Take bccn-ryn-wmawprr and prescription medicines only as told by your health care provider. Contact your health care provider if your symptoms get worse, or you have new symptoms. Keep all follow-up visits as told by your health care provider. This is important. This information is not intended to replace advice given to you by your health care provider. Make sure you discuss any questions you have with your health care provider. Document Released: 03/21/2006 Document Revised: 07/13/2019 Document Reviewed: 08/29/2018 [employer] Patient Education 2020 [employer]. General Anesthesia, Adult, Care After This sheet gives you information about how to care for yourself after your procedure. Your health care provider may also give you more specific instructions. If you have problems or questions, contact your health care provider. What can I expect after the procedure? After the procedure, the following side effects are common: Pain or discomfort at the IV site. Nausea. Vomiting. Sore throat. Trouble concentrating. Feeling cold or chills. Weak or tired. Sleepiness and fatigue. Soreness and body aches. These side effects can affect parts of the body that were not involved in surgery. Follow these instructions at home: For at least 24 hours after the procedure: Have a responsible adult stay with you. It is important to have someone help care for you until you are awake and alert. Rest as needed. Do not: ? Participate in activities in which you could fall or become injured. ? Drive. ? Use heavy machinery. ? Drink alcohol. ? Take sleeping pills or medicines that cause drowsiness. ? Make important decisions or sign legal documents. ? Take care of children on your own. Eating and drinking Follow any instructions from your health care provider about eating or drinking restrictions. When you feel hungry, start by eating small amounts of foods that are soft and easy to digest (bland), such as toast. Gradually return to your regular diet. Drink enough fluid to keep your urine pale yellow. If you vomit, rehydrate by drinking water, juice, or clear broth. General instructions If you have sleep apnea, surgery and certain medicines can increase your risk for breathing problems. Follow instructions from your health care provider about wearing your sleep device: ? Anytime you are sleeping, including during daytime naps. ? While taking prescription pain medicines, sleeping medicines, or medicines that make you drowsy. Return to your normal activities as told by your health care provider. Ask your health care provider what activities are safe for you. Take extl-lpi-jbsbidr and prescription medicines only as told by your health care provider. If you smoke, do not smoke without supervision. Keep all follow-up visits as told by your health care provider. This is important. Contact a health care provider if: You have nausea or vomiting that does not get better with medicine. You cannot eat or drink without vomiting. You have pain that does not get better with medicine. You are unable to pass urine. You develop a skin rash. You have a fever. You have redness around your IV site that gets worse. Get help right away if: You have difficulty breathing. You have chest pain. You have blood in your urine or stool, or you vomit blood. Summary After the procedure, it is common to have a sore throat or nausea. It is also common to feel tired. Have a responsible adult stay with you for the first 24 hours after general anesthesia. It is important to have someone help care for you until you are awake and alert. When you feel hungry, start by eating small amounts of foods that are soft and easy to digest (bland), such as toast. Gradually return to your regular diet. Drink enough fluid to keep your urine pale yellow. Return to your normal activities as told by your health care provider. Ask your health care provider what activities are safe for you. This information is not intended to replace advice given to you by your health care provider. Make sure you discuss any questions you have with your health care provider. Document Released: 06/27/2001 Document Revised: 03/24/2018 Document Reviewed: 11/04/2017 [employer] Patient Education 2020 [employer]. What to Do After Your Gynecology Surgery This sheet will give you general information on what to do when you are home after surgery. However, you should always follow any specific instructions given to you by your surgeon. Pain Medication Please follow the directions on the label of your medication and use your discharge medication list provided by the hospital. Do not take this medication on an empty stomach. This may cause a stomachache. Use a stool softener or gentle laxative (milk of magnesia) if needed. Constipation is not uncommon while taking oral pain medication. Use less of any narcotic pain medication as soon as your pain allows. You may take lhky-dqt-ejsvwfd pain medication if you no longer need your prescribed pain medication. Lbhr-cbq-ugtxwsl pain medications are Tylenol (acetaminophen) or Advil (ibuprofen). Do not take Tylenol if you are still taking [place] or Percocet. They are the same type of medication. Too much acetaminophen can hurt your liver. Activity It is OK to use the stairs, but try to avoid them or take less trips right after surgery. After surgery, you may feel tired. Rest is important for healing. Slowly increase your activity level by walking and doing normal activities as you feel comfortable. Follow surgeon instructions on driving. You may not be able to drive for one to six weeks depending on what surgery and incisions you have. Do not drive while taking narcotic pain medication. They should be out of your system for 24 hours. Diet Eating smaller meals instead of three large meals is good. This may help with your appetite and nutrition. Good nutrition will help you heal. Follow diet instructions that you were taught after surgery. Infection Prevention Washing your hands is one of the best ways to prevent infection. Always wash your hands before and after touching your incision or dressing. Hands carry germs that can cause infections. Try not to touch your incision. Keep the Incision Clean Wear clean, loose-fitting clothes to prevent clothes from rubbing on the incision. Put clean sheets on your bed when you get home. Do not let other people or animals touch the incision. Showering You may start to shower 24 hours after your surgery. Use a clean washcloth and towel on your incision before you use it on any other area of your body. Adjust the shower spray to gentle and use warm water. Gently wash over your incision using antibacterial soap and water and pat it dry. Do not rub the incision. Do not soak or submerge in the bathtub or hot tub until your surgeon says it is OK. Wound Care When you go home, you may leave your incision(s) open to the air. Your incision(s) may be closed with sutures or beatriz. If incision is closed with sutures under the skin, you do not need to have these removed as they will dissolve on their own. If incision is closed with beatriz, the beatriz will need to be removed. If your incision is horizontal (sideways), they need to be removed within three to seven days. If your incision is vertical (up and down), they need to be removed within 10 14 days. If you have thin white tape strips (Steri-Strips) over your incision, keep them dry. Do not remove them unless they begin curling up at the sides and are almost falling off or have been in place for seven days. If your incision begins coming apart, has drainage (thick, foul smelling, white, yellow, green, pink or red) with redness around the incision and feels warm to touch, call your surgeon. You may have an infection. Vaginal Care You may have drainage after surgery. Normal colors are watery, brown-black discharge. Vaginal spotting and bleeding are normal. However, if you are soaking two pads in one hour, that is not normal. Call your surgeon. No tampons or douching. NO SEXUAL INTERCOURSE FOR 2 WEEKS. Call Your Doctor If: Your pain is not controlled by pain medication. You have a fever of 100.4 degrees or higher. You have a lot of bleeding from the incision or a lot of vaginal bleeding (more than two pads per hour). You have bad stomach pain or you start throwing up. If you are unable to reach your doctor, go to the hospital. Follow Up If a follow-up appointment has not been made, please call your surgeon s office within a day. Let the office know if you have beatriz and they will schedule them to be removed. Contact your surgeon for any specific problems or questions that you may have. Additional Information VACCINATE! IT SAVES LIVES! Members of the community who have not yet received the COVID-19 vaccine and would like to receive it can visit one of [facility] vaccine clinics. There are many vaccine clinic locations within the [facility]. For locations and available times, please visit [email or web address] It is important to note that some COVID mobile vaccine clinics are held outdoors and may be canceled in rainy or stormy conditions. To learn more about pediatric vaccinations (ages 5-11), we invite you to visit the [facility] webpage. [email or web address] To learn more about the COVID-19 vaccine, we invite you to visit the [facility] website for a list of frequently asked questions. [email or web address] ently_[email or web address] [facility] Patient Portal Access Instructions: Stay connected with your healthcare team and access your personal medical information anytime with the [facility] Patient Portal.If you would like a full copy of your medical records, please contact the [facility] Medical Records Department, Tuesday through Tuesday between 8a.m. and 4:30p.m. Please follow the directions below to access the portal: 1.Access the email account you provided upon registration to the hospital.2.Look for an invitation email from [facility].3.Open the email and access the invitation link: Accept Invitation to [facility]4.Fill in the required blanco to create your account. Sign into [email or web address] with your username and password that you created in the above steps to stay up to date. You can then view a summary of results, a summary of your visits, and the ability to download your summaries to your computer or send the information securely to a physician. Remember that your healthcare information is confidential, so carefully consider who you will allow to register on the [facility] Patient Portal for access to your information. You can also access the [facility] Patient Portal on the [employer]. Simply click on Health Records under Health Data and then click on the [employer] logo. HOW TO SAFELY DISPOSE OF PRESCRIPTION MEDICATIONS Please use one of the following methods to safely dispose of your unused medications. 1.Use a drug disposal kit: the drug disposal pouch allows you to safely discard your old and unused drugs. Ask your nurse to give you one when you are discharged.2.Visit a local take-back location: Many local pharmacies and police departments have programs that collect old and unwanted prescription drugs. Call your local pharmacy or go to http://[employer].Power Content/1E0Ug1r to find one close to you.3.Make use of household items: Use cat litter or old coffee grounds to dispose medications if other options are not available. Mix your drugs with these household products, seal them in an airtight container and throw it into the garbage. Call [facility]: [phone] to be sure your drugs can be disposed of in this way. Some medicines may require a different approach.4.Never flush your medications down the toilet. IF YOU HAVE BEEN PRESCRIBED AN OPIOID FOR PAIN If you have been prescribed an opioid (such as hydrocodone, oxycodone or morphine), it is critical to understand the possible side effects and risks of opioid pain medications. Even when taken as directed, opioids can have several side effects including: Tolerance, meaning you might need to take more of a medication for the same pain relief. Nausea, vomiting and/or constipation. Sleepiness, dizziness, dry mouth, confusion, depression or itching. Physical dependence, meaning you have withdrawal symptoms when a medication is stopped, can develop within a few days. KNOW YOUR RESPONSIBILITIES It is important to know exactly how much and how often to take the opioid pain medications you are prescribed. Never take opioids in higher amounts or more often than prescribed. Do not combine opioids with alcohol or other drugs that cause drowsiness, such as benzodiazepines, also known as benzos, including diazepam and alprazolam, muscle relaxants or sleep aids. Never sell or share prescription opioids. This is illegal. Store opioids in a secure place and out of reach of others (including children, family, friends and visitors). The last page of this document has been signed and retained as a CHART COPY. Signatures Patient Education Materials Diagnostic Laparoscopy, Care After Nausea and Vomiting, Adult General Anesthesia, Adult, Care After 8- Post Op DISPENSARY TECHNICIAN Surgery (03/2020) (CUSTOM) Medication Leaflets My discharge plan and instructions have been reviewed and explained to me and I,JAELYN SIU understand my current condition and have read and understand these discharge instructions. I have received a written copy of the plan/instructions. If I have questions, I am aware that I should contact my doctor. Patient/Customer Security Clerk Signature: Date/Time: Relationship to Patient: ___ Witness Name/Signature: Date/Time: [facility] 02-12-2022 Anesthesiology Consult note Patient: JAELYN SIU Age: 26 years Sex: Female : 1995 Associated Diagnoses: None Author: DELISA SANTAMARIA APRN-HEALTH ASSESSMENT AND TREATMENT TEACHER Preoperative Information Time of last food or liquid consumption: 02/12/2022 00:00:00 Anesthesia history Patient's history: negative. Family's history: negative. Review of Systems Ear/Nose/Mouth/Throat: Negative. Respiratory: smoker. Cardiovascular: anemia. Gastrointestinal: Negative. Genitourinary: Negative. Endocrine: PCOS. Musculoskeletal: Negative. Integumentary: Negative. Neurologic: anxiety, depression, migraines. Health Status Allergies: Allergic Reactions (Selected) Severity Not Documented Cinnamon- Facial swelling., Allergies (1) ActiveReaction CinnamonFacial swelling Current medications: (Selected) Inpatient Medications Ordered LR 1000 mL: 20 mL/hr, Intravenous LR 1000 mL: 25 mL/hr, Intravenous, Stop: 02/13/22 17:59:00 EST Zofran ( PACU ): 4 mg, 2 mL, IV Push, AsDirected, PRN: Nausea/Vomiting morphine ( PACU ): 2 mg, 1 mL, IV Push, q5min, PRN: Pain, scale 4-6 Prescriptions Prescribed Percocet 5 mg-325 mg oral tablet: 1 tab(s), Oral, q4h, for 7 day(s), PRN: for pain, 12 tab(s), 0 Refill(s) Tylenol Extra Strength 500 mg oral tablet: 500 mg, 1 tab(s), Oral, q4h, for 14 day(s), 30 tab(s), 1 Refill(s) ibuprofen 800 mg oral tablet: 800 mg, 1 tab(s), Oral, q8h, for 14 day(s), 42 tab(s), 0 Refill(s), Medications (4) Active Scheduled: (0) Continuous: (2) Lactated Ringers 1000 mL 1,000 mL, Intravenous, 25 mL/hr Lactated Ringers Infusion 1000 mL 1,000 mL, Intravenous, 20 mL/hr PRN: (2) morphine 2 mg/mL 1 mL syringe 2 mg 1 mL, IV Push, q5min ondansetron 2 mg/ 1 mL 2 mL INJ 4 mg 2 mL, IV Push, AsDirected Problem list: Medical Amenorrhea / SNOMED CT 51827826 / Confirmed Anemia / SNOMED CT 684207908 / Confirmed Anxiety / SNOMED CT 95032549 / Confirmed Bed bug bite / SNOMED CT 826081976 / Confirmed Easy bruising / SNOMED CT 9100722608 / Confirmed Vitamin B12 deficiency / SNOMED CT 735786502 / Confirmed Cyst, ovarian / SNOMED CT 594732631 / Confirmed Depression / SNOMED CT 674780120 / Confirmed Nipple discharge / SNOMED CT 381913253 / Confirmed Headache / SNOMED CT 23640086 / Confirmed Recurrent headache / SNOMED CT 17229784 / Confirmed History of nephrolithiasis / SNOMED CT 5568499971 / Confirmed History of marijuana use / SNOMED CT 3926841494 / Confirmed Migraines / SNOMED CT 89220864 / Confirmed Vapes non-nicotine containing substance / SNOMED CT 6173503190 / Confirmed Bilateral numbness and tingling of arms and legs / SNOMED CT 075925105 / Confirmed Pernicious anemia / SNOMED CT 261723817 / Confirmed Moderate recurrent major depression / SNOMED CT 521302081 / Confirmed Patient desires / SNOMED CT 571297403 / Confirmed Tobacco use / SNOMED CT 067146340 / Confirmed, Active Problems (22) Amenorrhea Anemia Anxiety Bed bug bite Bilateral numbness and tingling of arms and legs Cyst, ovarian Depression Easy bruising Headache History of marijuana use History of nephrolithiasis Kidney stones Migraines Moderate recurrent major depression Nipple discharge Patient desires PCOS- polycystic ovary syndrome Pernicious anemia Recurrent headache Tobacco use Vapes non-nicotine containing substance Vitamin B12 deficiency Histories Past Medical History: Active Cyst, ovarian ([id number]) Anemia ([id number]) Resolved ([id number]): Onset on 01/31/2018 at 22 years. Resolved on 10/31/2018 at 23 years. ([id number]): Onset on 10/02/2015 at 20 years. Resolved on 11/06/2015 at 20 years. Family History: Hypertension Mother Heart disease Maternal Aunt Arthritis Mother Migraine Mother Sister Mental illness Mother Sister HIV Mother Depression Mother Father Sister Grandparent Endometriosis Maternal Aunt Seizures Sister Procedure history: Lithotripsy ([id number]). Social History Social & Psychosocial Habits Alcohol 01/22/2021 Use: Current Frequency: 1-2 times per year Substance Abuse 07/09/2020 Use: Past Type: Marijuana Tobacco 07/09/2020 Tobacco Use: 4 or less cigarettes(less, Vaping Product in Last 90 Type: Cigarettes 11/18/2020 Tobacco Use: Vaping Product in Last 90 Type: Electronic Cigarettes ([place] Home/Environment 02/10/2022 Domestic Concerns None Living situation: Home/Independent Nutrition/Health 06/17/2021 Caffeine intake amount: 1 servings/day . Physical Examination Vital Signs 02/12/2022 11:40 EST Heart Rate Monitored 99 bpm bpm Respiratory Rate - Anes 10 br/min br/min Systolic Blood Pressure Non-Invasive 92 mmHg mmHg Diastolic Blood Pressure Non-Invasive 53 mmHg mmHg 02/12/2022 11:35 EST Heart Rate Monitored 90 bpm bpm Respiratory Rate - Anes 9 br/min br/min Systolic Blood Pressure Non-Invasive 104 mmHg mmHg Diastolic Blood Pressure Non-Invasive 66 mmHg mmHg 02/12/2022 11:30 EST Respiratory Rate - Anes 0 br/min br/min Systolic Blood Pressure Non-Invasive 108 mmHg mmHg Diastolic Blood Pressure Non-Invasive 61 mmHg mmHg 02/12/2022 9:55 EST Temperature Temporal Artery 36.6 DegC Apical Heart Rate 61 bpm Respiratory Rate 18 br/min Systolic BP Left Arm 105 mmHg Diastolic BP Left Arm 71 mmHg Systolic Blood Pressure Non-Invasive 101 mmHg Diastolic Blood Pressure Non-Invasive 70 mmHg Vital Signs(last 24 hrs) Last Charted Heart Rate [id number] bpm (FEB 12 11:40) Resp Rate 18 br/min (FEB 12 09:55) SBP92 mmHg (FEB 12 11:40) DBP53 mmHg (FEB 12 11:40) Measurements from flowsheet : Measurements 02/12/2022 9:55 EST Height 162.6 cm Admission Weight 54.5 kg Weight Method Actual Liberty Body Weight 54.74 kg Pain assessment: Pain Assessment 02/12/2022 9:55 EST Primary Pain Location Abdomen Abdominal Pain Location Umbilical Primary Pain Intensity 5 Primary Pain Quality Pressure Pain Scale Type 0-10 Pain scale . General: Alert and oriented. Airway: Normal temporomandibular joint mobility. Mallampati classification: I (soft palate, fauces, uvula, pillars visible). Head: Normocephalic. Dentition Evaluation: Own teeth. Neck: Supple. Respiratory: Lungs are clear to auscultation. Cardiovascular: Normal rate. Heart Sounds: Normal. Gastrointestinal: Soft. Musculoskeletal Normal range of motion. Integumentary: Intact. Neurologic: Alert, Oriented. Review / Management Results review: No qualifying data available , Lab results 02/12/2022 11:50 EST SN - CTm - Surgery Start 02/12/2022 11:49 02/12/2022 11:40 EST Heart Rate Monitored 99 bpm bpm Respiratory Rate - Anes 10 br/min br/min Systolic Blood Pressure Non-Invasive 92 mmHg mmHg Diastolic Blood Pressure Non-Invasive 53 mmHg mmHg Oxygen Saturation 100 % % Set Rate Anes 10 br/min br/min 02/12/2022 11:39 EST SN - PTCare - Thermals Forced Air Warming Device Upper Body 02/12/2022 11:35 EST SN - PTCare - Anti-thromboembolism Gale Sequential Compression Device (SCD) 02/12/2022 11:35 EST Heart Rate Monitored 90 bpm bpm Respiratory Rate - Anes 9 br/min br/min Systolic Blood Pressure Non-Invasive 104 mmHg mmHg Diastolic Blood Pressure Non-Invasive 66 mmHg mmHg Oxygen Saturation 100 % % Set Rate Anes 10 br/min br/min 02/12/2022 11:30 EST Respiratory Rate - Anes 0 br/min br/min Systolic Blood Pressure Non-Invasive 108 mmHg mmHg Diastolic Blood Pressure Non-Invasive 61 mmHg mmHg 02/12/2022 10:34 EST SN - Proc - Actual Procedure DIAGNOSTIC LAPAROSCOPY WITH CHROMOPERTUBATION 02/12/2022 10:32 EST SN - TX - Route of Administration Local SN - TX - By (Single) SN - TX - By (Single) 02/12/2022 10:31 EST SN - GCD - Post-operative Diagnosis CHRONIC PELVIC PAIN SN - GCD - Case Level Level 3 02/12/2022 10:31 EST SN - Cul - Culture Type No Specimen per Surgeon 02/12/2022 10:15 EST SN - PP - Body Position Lithotomy Standard Intra-op 02/12/2022 10:14 EST SN - Assess - LOC Alert SN - Assess - Orientation Oriented X 3 SN - Assess - Post-op Skin Integrity Intact/Dry 02/12/2022 10:13 EST SN - CAt - Case Attendee SN - CAt - Case Attendee SN - CAt - Case Attendee SN - CAt - Case Attendee SN - CAt - Case Attendee SN - CAt - Case Attendee SN - CAt - Case Attendee SN - CAt - Case Attendee SN - CAt - Case Attendee SN - CAt - Case Attendee SN - CAt - Role Performed Primary Surgeon SN - CAt - Role Performed HEALTH ASSESSMENT AND TREATMENT TEACHER SN - CAt - Role Performed Career Technical Counselor 1 SN - CAt - Role Performed Scrub 1 SN - CAt - Role Performed Icer Machine Operator 1 02/12/2022 10:12 EST SN - Preop - CTm Pt Ready for OR/Proced 02/12/2022 10:12 02/12/2022 10:11 EST famotidine 20 mg mg 02/12/2022 10:08 EST Lactated Ringers Injection Begin Bag 1,000 mL mL 02/12/2022 9:58 EST [facility] History and Physical History and Physical Update Note 02/12/2022 9:57 EST Test Urine Negative test (u) int test (u) int QC PRGUN Negative QC PRGUP Positive 02/12/2022 9:55 EST Designated Person #1 We May Share PHI KYM LAGUERRE Designated Person #1 Relationship Mother Designated Person #2 We May Share PHI TULIO SIU [phone] Designated Person #2 Relationship Spouse Privacy Restrictions Requested None Height 162.6 cm Admission Weight 54.5 kg Weight Method Actual Liberty Body Weight 54.74 kg Temperature Temporal Artery 36.6 DegC Apical Heart Rate 61 bpm Respiratory Rate 18 br/min Systolic BP Left Arm 105 mmHg Diastolic BP Left Arm 71 mmHg Systolic Blood Pressure Non-Invasive 101 mmHg Diastolic Blood Pressure Non-Invasive 70 mmHg Primary Pain Location Abdomen Abdominal Pain Location Umbilical Primary Pain Intensity 5 Primary Pain Quality Pressure Pain Scale Type 0-10 Pain scale Heart Rhythm Regular Oxygen Therapy Room air Oxygen Saturation 99 % Abdomen Description Non-distended Abdomen Palpation Tender Abdomen Tender Umbilical Bowel Sounds All Quadrants Present Status No, per patient Skin Temperature Warm Skin Description Brunson Skin Integrity Intact Skin Moisture General Dry IV Present Present Hand Left 20 gauge Peripheral IV Activity: Insert new site Peripheral IV Dressing Condition: Clean, Dry, Intact Peripheral IV Dressing Activity: Applied Peripheral IV Site Condition: No complications Peripheral IV Equipment: Extension set Peripheral IV Number of Attempts: 1 Characteristics of Speech Clear Level of Consciousness Alert Strength All Extremities Strong Tone All Extremities Normal Sensation All Extremities Intact Affect/Behavior Appropriate Orientation Oriented x 4 Sensory Deficits None Sleep Apnea Snore No Sleep Apnea Tired No Sleep Apnea Obstruction No Sleep Apnea Pressure No Sleep Apnea BMI No Sleep Apnea Age No Sleep Apnea Neck No Sleep Apnea Gender No Sleep Apnea Score 0 High Risk for Sleep Apnea No Diagnosed With Sleep Apnea No Advanced Directives No - refuses information Infectious Disease Symptoms Patient states no symptoms Infectious Disease Recent Exposure No Alcohol and Drug Use No Employee of Institutional Living No Health Care Employee No History of Exposure to TB No History of Positive Chest X-Ray for TB No History of Positive TB Skin Test No Homeless No Known Immunosuppression No Recent Immigrant No Resident of Institutional Living No Bloody Sputum No Fatigue No Fever No Loss of Appetite No Night Sweats No Persistent Cough > 3 Weeks No Weight Loss No Allergies Yes Associate Manager Affiliate Marketing On Yes Consent Form Signed Yes Patient Dressed In Hospital gown History & Physical On Chart Yes Obstructive Sleep Apnea Assess Completed Yes Barriers to Learning None evident Teaching Method Explanation Preferred Written Language Indonesian Preferred Spoken Language Indonesian Information Given by Patient Patient's Current Physicians Patient's Current Physicians Discharge To, Anticipated Home with family care SCD On/Re-applied bilateral knee high NPO Status Maintained Standard Safety ID band on, Allergy Band on, Call device within reach, Bed in low position, Wheels locked, Upper/Half-Length side-rails up Prev Test Positive/Diagnosis w/COVID-19 Yes Previous COVID-19 Positive Date 11/2020 Current Quarantine/Isolated any Illness No Any Contact with Sick Animals/Birds No Traveled Anywhere in Last 30 Days Yes Travel Where Within [facility] [place] Last Fluid Intake 02/11/2022 16:00 Lost Weight Unintentionally Recently No Eat Poorly Due to Decreased Appetite No Total MST Score 0 No Personal Devices, Patient Valuables None Anesthesia/Transfusions Prior anesthesia Admission Note-Nursing Same Day Patient History 02/11/2022 6:16 EST CSumradha DE LEON . Assessment and Plan [place] [employer] Anesthesiologists (ASA) physical status classification: Class II. Anesthetic Preoperative Plan Premedication: intravenous. Anesthetic technique: General. Induction: intravenously. Maintenance airway: Oral endotracheal tube. Postoperative pain management: Per surgeon. Risks discussed: nausea, vomiting, sore throat. Informed consent: signed by patient. Digitally Signed by DELISA SANTAMARIA on 02/12/2022 11:53 AM [facility] 02-12-2022 Note Date of Service 02/12/22 History and Physical Update I have examined the patient; reviewed the History and Physical and there are no changes to the History and Physical unless noted below. History and Physical 26 yo G0 here for diagnostic laparoscopy with chromopertubation for chronic pelvic pain. No changes to H&P except headache today. Digitally Signed by JAELYN GÓMEZ MD on 02/12/2022 09:59 AM [facility] 01-25-2022 Evaluation + Plan note Future Scheduled TestsPathology Medicare Contact Specialist Request 01/25/22 [facility] 01-20-2022 Hospital Discharge instructions Patient Education 01/20/2022 01:56:25 Abdominal Pain Abdominal Pain Abdominal pain is pain in the stomach or belly area. Everyone has this pain from time to time. In many cases it goes away on its own. But abdominal pain can sometimes be due to a serious problem, such as appendicitis. So it s important to know when to get help. Causes of abdominal pain There are many possible causes of abdominal pain. Common causes in adults include: Constipation, diarrhea, or gas Stomach acid flowing back up into the esophagus (acid reflux or heartburn) Severe acid reflux, called GERD (gastroesophageal reflux disease) A sore in the lining of the stomach or small intestine (peptic ulcer) Inflammation of the gallbladder, liver, or pancreas Gallstones or kidney stones Appendicitis Intestinal blockage An internal organ pushing through a muscle or other tissue (hernia) Urinary tract infections In women, menstrual cramps, fibroids, ovarian cysts, pelvic inflammatory disease, or endometriosis Inflammation or infection of the intestines, including Crohn's disease and ulcerative colitis Irritable bowel syndrome Diagnosing the cause of abdominal pain Your healthcare provider will give you a physical exam help find the cause of your pain. If needed, you will have tests. Belly pain has many possible causes. So it can be hard to find the reason for your pain. Giving details about your pain can help. Tell your provider where and when you feel the pain, and what makes it better or worse. Also let your provider know if you have other symptoms such as: Fever Tiredness Upset stomach (nausea) Vomiting Changes in bathroom habits Blood in the stool or black, tarry stool Weight loss that you can't explain (involuntary weight loss?) Also report any family history of stomach or intestinal problems, or cancers. Tell your provider about all your alcohol use and drug use. Tell your provider about all medicines you use, including herbs, vitamins, and supplements. Treating abdominal pain Some causes of pain need emergency medical treatment right away. These include appendicitis or a bowel blockage. Other problems can be treated with rest, fluids, or medicines. Your healthcare provider can give you specific instructions for treatment or self-care based on what is causing your pain. If you have vomiting or diarrhea, sip water or other clear fluids. When you are ready to eat solid foods again, start with small amounts of gppo-lt-tttwur, low-fat foods. These include apple sauce, toast, or crackers. When to get medical care Call 911 or go to the hospital right away if you: Can t pass stool and are vomiting Are vomiting blood or have bloody diarrhea or black, tarry diarrhea Have chest, neck, or shoulder pain Feel like you might pass out Have pain in your shoulder blades with nausea Have sudden, severe belly pain Have new, severe pain unlike any you have felt before Have a belly that is rigid, hard, and hurts to touch Call your healthcare provider if you have: Pain for more than 5 days Bloating for more than 2 days Diarrhea for more than 5 days A fever of 100.4 F (38 C) or higher, or as directed by your healthcare provider Pain that gets worse Weight loss for no reason Continued lack of appetite Blood in your stool How to prevent abdominal pain Here are some tips to help prevent abdominal pain: Eat smaller amounts of food at each meal. Don't eat greasy, fried, or other high-fat foods. Don't eat foods that give you gas. Exercise regularly. Drink plenty of fluids. To help prevent GERD symptoms: Quit smoking. Reduce alcohol and foods that increase stomach acid. Don't use aspirin or hawa-gwj-udfjgoe pain and fever medicines, if possible. This includes nonsteroidal anti-inflammatory drugs (NSAIDs). Lose excess weight. Finish eating at least 2 hours before you go to bed or lie down. Raise the head of your bed. 2231-4503 [employer]. [address] [place] [address]. All rights reserved. This information is not intended as a substitute for professional medical care. Always follow your healthcare professional's instructions. Follow Up Care 01/19/2022 22:12:36 With:AVERY WEATHERS DO Address: [address] [place] [id number] [phone] When:2-4 days [facility] 01-20-2022 Note Discharge Instructions Thank you for allowing [facility] to assist you with your healthcare needs. The following is important discharge information regarding your hospital visit. Diagnosis from Today's Visit Abdominal pain Abdominal pain What to Do Next Instructions from Your Care Team No qualifying data available. Post Acute Orders No qualifying data available. You Need to Schedule the Following Appointments Follow Up with AVERY WEATHERS DO When Within 2-4 days Where: [address] [place] [id number] [phone] Allergies Cinnamon (Facial swelling) Medications Please ask your primary doctor or pharmacist before taking any other medication not listed, including over the counter drugs, herbal medications, vitamins and or supplements as they may interact with your home medications. What How Much When Why Instructions Last Dose Unchanged acetaminophen-hydrocodone ([place] 325- 5 mg oral tablet) 1 tab(s) by mouth Every 6 hours Ovarian cyst Duration: 3 Days Unchanged DME (DME MISCellaneous) See instructions Paresthesia of both lower extremities Dispense 1 pair of knee high compression stockings, 15-20mmhg. Unchanged ferrous sulfate (ferrous sulfate 325 mg (65 mg elemental iron) oral tablet) 1 tab(s) by mouth Once a day Duration: 30 Days Take with food. Unchanged ibuprofen (ibuprofen 200 mg oral tablet) by mouth As needed for as needed for pain Unchanged ibuprofen (ibuprofen 600 mg oral tablet) 1 tab(s) by mouth Every 6 hours as needed for for pain Pain pelvic Take with food or milk. Unchanged naproxen (naproxen 500 mg oral tablet) 1 tab(s) by mouth Two (2) times a day as needed for as needed for pain Ovarian cyst Unchanged polyethylene glycol 3350 (polyethylene glycol 3350 oral powder for reconstitution) As needed for Constipation take 17GM (DISSOLVED IN WATER) by mouth once daily for 7 days Please take this list to your next doctor s visit. Bring all medications you take, including over the counter medications, herbals and other supplements with you to your doctor s visit. Patients and families are reminded to discard old lists and to update any records with all medication providers or retail pharmacies. Education Materials Abdominal Pain Abdominal pain is pain in the stomach or belly area. Everyone has this pain from time to time. In many cases it goes away on its own. But abdominal pain can sometimes be due to a serious problem, such as appendicitis. So it s important to know when to get help. Causes of abdominal pain There are many possible causes of abdominal pain. Common causes in adults include: Constipation, diarrhea, or gas Stomach acid flowing back up into the esophagus (acid reflux or heartburn) Severe acid reflux, called GERD (gastroesophageal reflux disease) A sore in the lining of the stomach or small intestine (peptic ulcer) Inflammation of the gallbladder, liver, or pancreas Gallstones or kidney stones Appendicitis Intestinal blockage An internal organ pushing through a muscle or other tissue (hernia) Urinary tract infections In women, menstrual cramps, fibroids, ovarian cysts, pelvic inflammatory disease, or endometriosis Inflammation or infection of the intestines, including Crohn's disease and ulcerative colitis Irritable bowel syndrome Diagnosing the cause of abdominal pain Your healthcare provider will give you a physical exam help find the cause of your pain. If needed, you will have tests. Belly pain has many possible causes. So it can be hard to find the reason for your pain. Giving details about your pain can help. Tell your provider where and when you feel the pain, and what makes it better or worse. Also let your provider know if you have other symptoms such as: Fever Tiredness Upset stomach (nausea) Vomiting Changes in bathroom habits Blood in the stool or black, tarry stool Weight loss that you can't explain (involuntary weight loss?) Also report any family history of stomach or intestinal problems, or cancers. Tell your provider about all your alcohol use and drug use. Tell your provider about all medicines you use, including herbs, vitamins, and supplements. Treating abdominal pain Some causes of pain need emergency medical treatment right away. These include appendicitis or a bowel blockage. Other problems can be treated with rest, fluids, or medicines. Your healthcare provider can give you specific instructions for treatment or self-care based on what is causing your pain. If you have vomiting or diarrhea, sip water or other clear fluids. When you are ready to eat solid foods again, start with small amounts of zuep-hm-kltyfr, low-fat foods. These include apple sauce, toast, or crackers. When to get medical care Call 911 or go to the hospital right away if you: Can t pass stool and are vomiting Are vomiting blood or have bloody diarrhea or black, tarry diarrhea Have chest, neck, or shoulder pain Feel like you might pass out Have pain in your shoulder blades with nausea Have sudden, severe belly pain Have new, severe pain unlike any you have felt before Have a belly that is rigid, hard, and hurts to touch Call your healthcare provider if you have: Pain for more than 5 days Bloating for more than 2 days Diarrhea for more than 5 days A fever of 100.4 F (38 C) or higher, or as directed by your healthcare provider Pain that gets worse Weight loss for no reason Continued lack of appetite Blood in your stool How to prevent abdominal pain Here are some tips to help prevent abdominal pain: Eat smaller amounts of food at each meal. Don't eat greasy, fried, or other high-fat foods. Don't eat foods that give you gas. Exercise regularly. Drink plenty of fluids. To help prevent GERD symptoms: Quit smoking. Reduce alcohol and foods that increase stomach acid. Don't use aspirin or ejdr-kvu-xcvslto pain and fever medicines, if possible. This includes nonsteroidal anti-inflammatory drugs (NSAIDs). Lose excess weight. Finish eating at least 2 hours before you go to bed or lie down. Raise the head of your bed. [id number] [employer]. [address] [place] [address], [place] [address]. All rights reserved. This information is not intended as a substitute for professional medical care. Always follow your healthcare professional's instructions. Additional Information VACCINATE! IT SAVES LIVES! Members of the community who have not yet received the COVID-19 vaccine and would like to receive it can visit one of [facility] vaccine clinics. There are many vaccine clinic locations within the [facility]. For locations and available times, please visit [email or web address]. It is important to note that some COVID mobile vaccine clinics are held outdoors and may be canceled in rainy or stormy conditions. To learn more about pediatric vaccinations (ages 5-11), we invite you to visit the [facility] webpage. [email or web address] To learn more about the COVID-19 vaccine, we invite you to visit the [facility] website for a list of frequently asked questions. [email or web address] [facility] Patient Portal Access Instructions: Stay connected with your healthcare team and access your personal medical information anytime with the [facility] Patient Portal. If you would like a full copy of your medical records please contact the [facility] Medical Records Department Tuesday through Tuesday between 8a.m. and 4:30p.m. Please follow the directions below to access the portal: 1.Access the email account you provided upon registration to the [facility].2.Look for an invitation email from [facility].3.Open the email and access the invitation link: Accept Invitation to [facility]4.Fill in the required blanco to create your account. Sign into [email or web address] with your username and password that you created in the above steps to stay up to date. You can then view a summary of results, a summary of your visits, and the ability to download your summaries to your computer or send the information securely to a physician. Remember that your healthcare information is confidential, so carefully consider who you will allow to register on the [facility] Patient Portal for access to your information. You can also access the [facility] Patient Portal on the [employer] gold. Simply click on Health Records under Health Data and then click on the [employer] logo. HOW TO SAFELY DISPOSE OF PRESCRIPTION MEDICATIONS Please use one of the following methods to safely dispose of your unused medications. 1.Use a drug disposal kit: the drug disposal pouch allows you to safely discard your old and unused drugs. Ask your nurse to give you one when you are discharged.2.Visit a local take-back location: Many local pharmacies and police departments have programs that collect old and unwanted prescription drugs. Call your local pharmacy or go to http://Pipeliner CRM.Power Content/0A1Py2x to find one close to you.3.Make use of household items: Use cat litter or old coffee grounds to dispose medications if other options are not available. Mix your drugs with these household products, seal them in an airtight container and throw it into the garbage. Call [facility]: [phone] to be sure your drugs can be disposed of in this way. Some medicines may require a different approach.4.Never flush your medications down the toilet. IF YOU HAVE BEEN PRESCRIBED AN OPIOIDS FOR PAIN If you have been prescribed an opioid (such as hydrocodone, oxycodone or morphine), it is critical to understand the possible side effects and risks of opioid pain medications. Even when taken as directed, opioids can have several side effects including: Tolerance, meaning you might need to take more of a medication for the same pain relief. Nausea, vomiting and/or constipation. Sleepiness, dizziness, dry mouth, confusion, depression or itching. Physical dependence, meaning you have withdrawal symptoms when a medication is stopped ? this can develop within a few days. KNOW YOUR RESPONSIBILITIES It is important to know exactly how much and how often to take the opioid pain medications you are prescribed. Never take opioids in higher amounts or more often than prescribed. Do not combine opioids with alcohol or other drugs that cause drowsiness, such as benzodiazepines, also known as benzos, including diazepam and alprazolam, muscle relaxants or sleep aids. Never sell or share prescription opioids. This is illegal. Store opioids in a secure place and out of reach of others (including children, family, friends and visitors). The last page(s) of this document has been signed and retained as a CHART COPY Signatures Patient Education Materials Abdominal Pain Medication Leaflets My discharge plan and instructions have been reviewed and explained to me and I,JAELYN SIU understand my current condition and have read and understand these discharge instructions. I have received a written copy of the plan/instructions. If I have questions, I am aware that I should contact my doctor. 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 Multiplanar reformatted images are provided for review. Automated exposure control, iterative reconstruction, and/or weight based adjustment of the mA/kV was utilized to reduce the radiation dose to as low as reasonably achievable. COMPARISON: CT abdomen and pelvis 07/16/2021, 01/16/2021, 06/06/2020. HISTORY: ORDERING SYSTEM PROVIDED HISTORY: Reason for Exam: Left-sided abdominal pain. History of ovarian cyst and kidney stones. FINDINGS: Visualized lung bases are clear. No pleural effusion. Heart is normal in size without pericardial effusion. Liver is normal in size, contour and attenuation. No focal hepatic masses. Gallbladder is unremarkable. No intra or extrahepatic biliary dilatation. Spleen, pancreas and adrenal glands are unremarkable. Kidneys are symmetric without evidence of hydronephrosis or renal calculi. 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 Ureters are normal in course and caliber. Bladder is underdistended limiting evaluation but no obvious wall thickening or focal mass. Uterus and right adnexa are unremarkable. There is a 1.7 cm left corpus luteum. Trace free pelvic fluid which is likely physiologic. Esophagus, stomach and duodenum are unremarkable. No evidence of small or large bowel obstruction. Appendix is unremarkable. No evidence of pneumoperitoneum. Aorta is normal in caliber. No pathologically enlarged abdominal or pelvic lymph nodes. Abdominal wall is intact. No aggressive osseous abnormalities. IMPRESSION: No acute findings within the abdomen and pelvis. Trace free pelvic fluid is likely physiologic. I have personally reviewed the images of this examination, and agree with the resident's findings and interpretation. Interpreted by: Lion Mckeon MD Preliminary Report By: Ric Gipson Electronically signed By Lion Mckeon MD Dictated Date: 01/20/2022 1:36:18 AM Prelim Date: 01/20/2022 1:47:55 AM Sign Date: 01/20/2022 1:57:11 AM Ordering [facility] Note ORIGINAL EXAMINATION: CT OF THE ABDOMEN AND PELVIS WITH CONTRAST 01/20/2022 1:35 am TECHNIQUE: CT of the abdomen and pelvis was performed with the administration of intravenous contrast. Multiplanar reformatted images are provided for review. Automated exposure control, iterative reconstruction, and/or weight based adjustment of the mA/kV was utilized to reduce the radiation dose to as low as reasonably achievable. COMPARISON: CT abdomen and pelvis 07/16/2021, 01/16/2021, 06/06/2020. HISTORY: ORDERING SYSTEM PROVIDED HISTORY: Reason for Exam: Left-sided abdominal pain. History of ovarian cyst and kidney stones. FINDINGS: Visualized lung bases are clear. No pleural effusion. Heart is normal in size without pericardial effusion. Liver is normal in size, contour and attenuation. No focal hepatic masses. Gallbladder is unremarkable. No intra or extrahepatic biliary dilatation. Spleen, pancreas and adrenal glands are unremarkable. Kidneys are symmetric without evidence of hydronephrosis or renal calculi. 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 Ureters are normal in course and caliber. Bladder is underdistended limiting evaluation but no obvious wall thickening or focal mass. Uterus and right adnexa are unremarkable. There is a 1.7 cm left corpus luteum. Trace free pelvic fluid which is likely physiologic. Esophagus, stomach and duodenum are unremarkable. No evidence of small or large bowel obstruction. Appendix is unremarkable. No evidence of pneumoperitoneum. Aorta is normal in caliber. No pathologically enlarged abdominal or pelvic lymph nodes. Abdominal wall is intact. No aggressive osseous abnormalities. IMPRESSION: No acute findings within the abdomen and pelvis. Trace free pelvic fluid is likely physiologic. I have personally reviewed the images of this examination, and agree with the resident's findings and interpretation. Interpreted by: Lion Mckeon MD Preliminary Report By: Ric Gipson Electronically signed By Lion Mckeon MD Dictated Date: 01/20/2022 1:36:18 AM Prelim Date: 01/20/2022 1:47:55 AM Sign Date: 01/20/2022 1:57:11 AM [facility]ing [facility] Discharge instructions Edison Bui MD - 07/20/2021 It is very important that you follow-up with your CONTACT LENS INSPECTOR. The following attachments cannot be sent through Care Everywhere.Ovarian Cyst: Hemorrhagic (Indonesian)documented in this encounter [facility] Work Phone: 07-16-2021 Hospital Discharge instructions Patient Education 07/16/2021 13:03:19 Ovarian Cysts Ovarian Cysts A cyst is usually a fluid-filled sac, like a small water balloon. Cysts are almost always harmless, and many go away on their own. Usually they grow slowly. They can vary in size from as small as a pea to larger than a grapefruit. Many cause no symptoms at all. Often they are felt only during a pelvic exam. Ovarian cysts are usually not cancer. Functional cyst A functional cyst is the most common kind of cyst. It forms when a follicle does not release a mature egg or continues to grow after releasing the egg. Functional cysts usually occur on only one ovary at a time. They usually shrink on their own in 1 to 3 months. In rare cases, a cyst will burst (rupture), causing pain. Pain might also be caused by the twisting of an ovary that is enlarged because of the cyst growing on it. Dermoid cyst Sometimes cells that are present from will start to grow into different kinds of tissue such as skin, fat, hair, and teeth. This kind of cyst is called a dermoid cyst. Dermoid cysts can grow on one or both ovaries. Usually they cause no symptoms. But if they leak or the ovary becomes twisted, they can cause severe pain. Endometrioma Sometimes tissue similar to the lining of the uterus (endometrium) grows and becomes part of the ovary. This kind of cyst is often called a chocolate cyst because of its dark-brown color. These cysts can grow on one or both ovaries. They often cause pain, especially around menstruation or during sex. Benign cystadenoma If the capsule that surrounds the ovary grows, it can form a cystadenoma. These cysts can grow on one or both ovaries. Usually they cause no symptoms if they are small. But if they become large, they can press on organs near the ovaries, causing pain. They can also cause pain by stretching the ovarian capsule. A cyst that pushes on the bladder can cause frequent urination. Sometimes these cysts rupture and bleed. Malignant cysts These cysts can invade other tissues or spread to other parts of the body. [id number] [employer]. [address] [place] [address]. All rights reserved. This information is not intended as a substitute for professional medical care. Always follow your healthcare professional's instructions. 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 Most kidney stones enlarge to about 1/8 to 1/4 inch in size before leaving the kidney and moving toward the bladder. There are 4 types of kidney stones. Eighty percent are calcium stones mostly calcium oxalate but also some with calcium phosphate. The other 3 types include uric acid stones, struvite stones (from a preceding infection), and rarely, cystine stones. When the stone breaks free and begins to move down the ureter (the narrow tube joining the kidney to the bladder) it often causes sharp back and side pain, often with nausea and vomiting. When the stone reaches the bladder, the pain stops. Once in your bladder, the kidney stone may pass through the urethra (urinary opening) while you are urinating (which may cause pain to start again). Or, it may break into such small fragments that you don t notice it passing. Your kidney stone is still inside the kidney. There is no way to predict how long it will be before it breaks free and causes any symptoms. Most stones will pass on their own within a few hours to a few days (sometimes longer). You may notice a red, pink, or brown color to your urine. This is normal while passing a kidney stone. A large stone may not pass on its own and may require special procedures to remove it. These procedures include lithotripsy, which uses ultrasound waves to break up the stone; ureteroscopy, which pushes a thin, basket-like instrument through the urethra and bladder and into the ureter to pull out the stone; and various types of direct surgery through the skin. Home care The following guidelines will help you care for yourself at home: Drink plenty of fluids. This increases urine flow and reduces the risk of further stone formation. Healthy adults (no heart/liver/kidney disease) who have had a kidney stone should drink 12, 8-ounce glasses of fluids per day. Most of this should be water. The goal is to produce 1.5 to 2 quarts of almost colorless urine per 24 hours. You should collect your urine in a container and then drain it through a strainer to collect any stones or pieces of stones. Take these to your healthcare provider to help identify your specific type of stone to aid in future treatment and dietary changes. Try to stay as active as possible since this will help the stone pass. Don't stay in bed unless you have pain that prevents you from getting up. If you develop pain, you may take ibuprofen or naproxen for pain, unless another medicine was prescribed. If you have chronic liver or kidney disease or ever had a stomach ulcer or GI bleeding, talk with your healthcare provider before using these medicines. Prevention Each year, there is a 5% to 10% chance that a new stone will form (50% chance over the next 5 to 7 years). The risk is higher if you have a family history of kidney stones or have certain chronic illnesses such as hypertension, obesity, or diabetes. However, there are lifestyle and dietary changes that you can make to reduce the risk of a recurrence. Most kidney stones are made of calcium. The following is advice for preventing a recurrence of calcium stones. If you don t know the type of stone you have, follow this advice until the cause of your stone is determined. Things that help: The most important thing you can do is to drink plenty of fluids each day, as described above. Certain foods, such as wheat, rice, rye, barley and beans, contain phytate, a compound that may lower the risk of recurrence of any type of stone. Eat more fruits and vegetables (especially those high in potassium). Eat foods high in natural citrate like fruit and fruit juices (using low sugar). Low calcium contributes to the formation of calcium type kidney stones. Eat a normal calcium diet and speak with your doctor if you are taking calcium supplements. It may be detrimental to reduce your calcium intake. New research shows that eating calcium-rich and oxalate-rich foods together lowers your risk of stones by binding the minerals in the stomach and intestines before they can reach the kidneys. Limit salt intake to 2 grams (1 teaspoon) per day. Use limited amounts when cooking, and don t add salt at the table. Processed and canned foods are usually high in salt. Spinach, rhubarb, peanuts, cashews and almonds, grapefruit and grapefruit juice are all high oxalate foods and should be reduced, or eaten with calcium rich foods. These foods include dairy, dark leafy greens, soy products, and calcium enriched foods. Reducing the amount of animal meat in your diet may lower your risk of uric acid stones. Don't have excess sugar (sucrose) and fructose (sweetener in many soft drinks) in your diet. If you take vitamin C as a supplement, do not take more than 1,000 milligrams (mg) per day. A dietitian or your healthcare provider can provide you with specific details about dietary changes to prevent kidney stone recurrence. Follow-up care Follow up with your healthcare provider, or as advised. Talk with your healthcare provider about urine and blood tests to find out the cause of your stone. If you had an X-ray, CT scan, or other diagnostic test, you will be notified of any findings that may affect your care. Call 911 Call 911 if you have any of these: Weakness, dizziness, or fainting When to seek medical advice Call your healthcare provider right away if any of the these occur: Severe sharp back or side pain Repeated vomiting or unable to keep down fluids Fever of 100.4 F (38 C) or higher, or as directed by your health care provider Blood (pink or red color) in your urine Foul smelling or cloudy urine Unable to pass urine for 8 hours or increasing bladder pressure [id number] [employer]. [address] [place] [address]. All rights reserved. This information is not intended as a substitute for professional medical care. Always follow your healthcare professional's instructions. 01/16/2021 12:16:52 Flank Pain, Uncertain Cause Flank Pain, Uncertain Cause The flank is the area between your upper abdomen and your back. Pain there is often caused by a problem with your kidneys. It might be a kidney infection or a kidney stone. Other causes of flank pain include spinal arthritis, a pinched nerve from a back injury, or a back muscle strain or spasm. The cause of your flank pain is not certain. You may need other tests. Home care Follow these tips when caring for yourself at home: You may use acetaminophen or ibuprofen to control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
[2025-01-05 02:55] LABS: Alcohol, Blood (Medical)-Serum 224.0 mg/dL (<=10.0)
[2025-01-05 03:53] VITALS: BP 87/49; PULSE 71; RESP 16; O2SAT 97
[2025-01-05 04:47] LABS: Barbiturate Urine NEGATIVE (< 200 ng/mL); Benzodiazepine Urine NEGATIVE (< 200 ng/mL); PCP Urine NEGATIVE (< 25 ng/mL); THC Urine PRESUMPTIVE POSITIVE (< 50 ng/mL)
[2025-01-05 04:58] VITALS: BP 116/69; PULSE 83; RESP 16; O2SAT 99
[2025-01-05 07:23] VITALS: BP 100/63; PULSE 69; RESP 18; O2SAT 97
[2025-01-05 08:23] VITALS: BP 105/69; PULSE 78; RESP 18; TEMP 36.8; O2SAT 97
== END 2025-01-05 08:39 | disposition home or self-care (01) ==
PROVIDERS: Emergency Provider Emergency Medicine; Visit Provider Emergency Medicine
DX: F10.129 Alcohol abuse with intoxication, unspecified (principal); F19.19 Other psychoactive substance abuse with unspecified psychoactive substance-induced disorder; Z87.891 Personal history of nicotine dependence; Y90.7 Blood alcohol level of 200-239 mg/100 ml; T51.94XA Toxic effect of unspecified alcohol, undetermined, initial encounter; Z79.899 Other long term (current) drug therapy; Z87.442 Personal history of urinary calculi; E28.2 Polycystic ovarian syndrome
CPT/HCPCS: 80307; 82077; 82962; 85025; 96361; 96374; 99285; P9612; A4216; J2405